=== PATIENT | male | born 1965 | race Caucasian/White ===

== ENCOUNTER 2018-06-16 11:30 | Emergency (ER) | payer MEDICARE, MEDICAID, SELFPAY ==
[2018-06-16] VITALS (10 sets, daily range): BP systolic 150; BP diastolic 97; PULSE 74–91; RESP 7–23; TEMP 36.6; O2SAT 90–97
--- NOTE | 2018-06-16 12:33 | DI.RAD_ITS ---
SYMPTOMS/DIAGNOSIS: COUGH CHEST X-RAY, FRONTAL AND LATERAL VIEWS: No priors for comparison. The heart size is within normal limits. Pulmonary vasculature is grossly unremarkable. The lungs show no evidence of congestive heart failure or pneumonia. No effusions or pneumothoraces are identified. Incidental note is made of an azygos lobe, which is a normal variant. Chronic changes are seen in the spine. There are surgical clips seen in the left upper quadrant. There are a plate and screws seen in the left humerus. IMPRESSION: No acute pulmonary process.
[2018-06-16 12:49] LABS: BE (Venous) 1.4 mmol/L (-3-3); HCO3 (Venous) 26 mmol/L (22-28); O2 Sat (Venous) 81 % (70-80); TCO2 (Venous) 24 mmol/L (22-29); pCO2 (Venous) 44 mm/Hg (34-47); pH (Venous) 7.39 (7.32-7.43); pO2 (Venous) 44 mm/Hg (28-44)
[2018-06-16] MEDS: Ketorolac 30 MG/ML VIAL IVP (12:49)
[2018-06-16] MEDS: methylPREDNISolone SUCC 125 MG VIAL IVP (12:49)
[2018-06-16] MEDS: Albuterol/Ipratropium 3 ML UPD VIAL UPD (12:50)
[2018-06-16 12:54] LABS: Abs Immature Grans 0.11 k/cumm (0.0-0.09); Absolute Basophil Count 0.05 k/cumm (0.0-0.2); Absolute Eosinophil Count 0.13 k/cumm (0.0-0.7); Absolute Lymphocyte Count 3.04 k/cumm (1.2-3.4); Absolute Monocyte Count 1.34 k/cumm (0.11-0.7); Absolute Neutrophil Count 6.71 k/cumm (1.2-6.7); Basophils % 0.4; Eosinophils % 1.1; HCT 41.7 % (40.0-50.0); HGB 14.2 g/dL (13.5-17.5); Lymphocytes % 26.7; Mean Corp. HGB Concentration 34.1 g/dL (32.0-36.0); Mean Corpuscular Hemoglobin 31.5 pg (27.0-33.0); Mean Corpuscular Volume 92.5 fL (80-95); Mean Platelet Volume 9.5 fL (8.0-11.0); Monocytes % 11.8; Platelet Count 466 x1000/uL (130-400); RBC 4.51 m/cumm (4.50-6.00); RBC Distribution Width 12.7 % (11.8-14.1); White Blood Cell Count 11.37 k/cumm (4.4-10.8)
--- NOTE | 2018-06-16 12:55 | W.ED.GENAD ---
Discharge Plan Disposition Patient Disposition: HOME Condition: Good Discharge Details Chief Complaint: RespSymp Clinical Impression: Bronchitis Primary Care Provider: TOSHIA SULLIVAN ED Provider: Raul Negron Home Meds and New Rx's Prescriptions: New lidocaine [Lidoderm] 1 PATCH patch 1 patch Topical Q24H Qty: 4 RF: 0 ibuprofen [Motrin IB] 200 MG tablet 600 mg PO Q6H 5 Days Qty: 60 RF: 0 prednisone 50 MG tablet 50 mg PO DAILY Qty: 5 RF: 0 azithromycin 250 mg tablet See Label Instructions .ROUTE .COMPLEX Qty: 6 RF: 0 albuterol sulfate 90 mcg/actuation HFA aerosol inhaler 2 puff IH Q6H PRN (Reason: shortness of breath or wheezing) Qty: 6.7 RF: 0 guaifenesin [Mucinex] 600 mg tablet extended release 12hr 600 mg PO Q12H Qty: 14 RF: 0 No Action oxycodone-acetaminophen [Percocet] 1 EACH tablet 1 ea PO 5X/DAY RF: 0 pravastatin 40 MG tablet 40 mg PO DAILY RF: 0 baclofen 20 MG tablet 1 tab PO DAILY RF: 0 clindamycin phosphate 60 GM gel 1 tab PO BID RF: 0 amlodipine 10 MG tablet 1 tab PO DAILY RF: 0 misoprostol [Cytotec] 200 MCG tablet 1 cap PO BID RF: 0 dextroamphetamine-amphetamine 30 MG capsule,extended release 24hr 30 mg PO DAILY RF: 0 losartan 100 MG tablet 1 tab PO DAILY RF: 0 calcitonin (salmon) [Miacalcin] 200 UNITS/ML solution 1 spray Intranasal DAILY RF: 0 metformin 500 MG tablet extended release 24hr 1 tab PO DAILY RF: 0 golimumab [Simponi] 50 MG/0.5 ML syringe 0.5 ml PO RF: 0 Discharge Instructions Instructions: Acute Bronchitis (ED) Additional Instructions: Please take medications as directed. If you notice any worsening of your symptoms, or any new symptoms such as vomiting, diarrhea, fever, chills, shortness of breath, chest pain, numbness, weakness, or fainting , please return immediately to the emergency department for reevaluation. Please follow up with your primary care provider as soon as possible for reassessment and reevaluation. As always, it was a pleasure participating in your medical care today. Referrals: TOSHIA SULLIVAN [Primary Care Provider] - Medical Decision Making This is a 52-year-old male with a past medical history of ankylosing spondylitis, diabetes and hypertension who presents with cough and shortness of breath for the last 2 weeks. He has some associated chest pain, which seems to be made worse with the cough. He denies any significant cardiac disease or history of respiratory disease. The patient does admit to some productive sputum with her cough. Vital signs are normal, the patient demonstrates no signs of hypoxemia, tachypnea, or tachycardia. The patient is low risk on PERC and Wells. Signs and symptoms are clinically inconsistent with PE. He denies any red flags for a PE. Patient does have some cardiac risk factors and we will perform a troponin EKG, however I feel symptoms are most likely secondary to a bronchitis or mild pneumonia. With normal vital signs, and atypical history and presentation for ACS, and low risk for PE/DVT, I feel that he can be safely discharged home if his workup has returned negative. EKG 12: 16 Rate 70, intervals normal, sinus rhythm, no ST elevations or depressions, no T wave inversions, no significant Q waves, normal EKG EKG 17: 23 Rate 101, intervals normal, EKG interpretation is atrial flutter, however this is a missed read and this is a normal sinus rhythm with no ST elevations or depressions, no significant Q waves, no significant T wave inversions. FINDINGS: Lungs: Normal variant azygos lobe . No focal consolidation Pleural space: Unremarkable. No pleural effusion. No pneumothorax. Heart/Mediastinum: Tortuous aorta No cardiomegaly. Upper abdomen: Surgical clips in the left upper quadrant Bones/joints: Internal fixation device in the proximal left femur IMPRESSION: No focal consolidation 5:36 PM Patient's chest x-ray has returned normal. No evidence of focal pneumonia. Patient's oxygen saturations remain excellent, no signs of hypoxemia. We did get the patient up and ambulate him around the department, his heart rate maxed out at 98, oxygen saturations maintained above 94%, and he showed no signs of respiratory distress. Serial troponins and EKGs are benign. Patient did have improvement with his breathing treatments. I feel that he does have a bit of reactive airway component, with most likely an acute on chronic bronchitis. We will prescribe an antibiotic, expectorants, albuterol, and steroids for home use. I do long discussion with the patient regarding the importance of close follow-up, as well as red flags which to return the patient understands. I feel the patient's clinical symptoms are consistent with a bronchitis picture, and clinically inconsistent with an acute cardiac etiology with the notable ausculatory respiratory component, the improvement with breathing treatments, and benign EKG and troponin. I have extensively reviewed the treatment plan and discharge instructions with the patient. I have addressed all patient concerns at this time. The patient was made aware of what symptoms to monitor for that would warrant a return to the emergency department. Discussed the plan with the patient, they demonstrate verbal understanding and agreement with our assessment and plan at this time. HPI General Date/Time Provider Initiated Documentation: 06/16/18 12:20. 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 The patient states that for the last 2 weeks he has had a cough with productive yellow sputum, he has had no associated chest pain, worse with cough, nonexertional, which she describes as a sharp sensation when he coughs but also with associated weight-like sensation. He does have associated shortness of breath in general. He denies any hemoptysis. Denies PE risk factors such as recent long car rides, immobilization, recent surgery, prior history of DVT or PE, family history of PE or DVT, morbid obesity, exogenous estrogen and smoking, hemoptysis, history of cancer. Patient denies any cardiac history or history of COPD. His family history is positive for cardiac disease though. Patient denies any other associated complaints at this time. He does not take any breathing treatments at home. He denies any arm neck or shoulder pain. He denies any numbness, tingling, or weakness. He has no additional complaints at this time. He denies any IV or illicit drug use. Related Data Home Medications Medication Instructions Recorded Confirmed amlodipine 1 tab PO DAILY 01/31/16 02/10/16 baclofen 1 tab PO DAILY 01/31/16 02/10/16 calcitonin (salmon) [Miacalcin] 1 spray INTRANASAL DAILY 01/31/16 02/10/16 clindamycin phosphate 1 tab PO BID 01/31/16 02/10/16 dextroamphetamine-amphetamine 30 mg PO DAILY 01/31/16 02/10/16 golimumab [Simponi] 0.5 ml PO 01/31/16 losartan 1 tab PO DAILY 01/31/16 02/10/16 metformin 1 tab PO DAILY 01/31/16 02/10/16 misoprostol [Cytotec] 1 cap PO BID 01/31/16 02/10/16 oxycodone-acetaminophen [Percocet] 1 ea PO 5X/DAY 01/31/16 02/09/16 pravastatin 40 mg PO DAILY 01/31/16 02/09/16 albuterol sulfate 2 puff IH Q6H PRN #6.7 gm 06/16/18 azithromycin See Label Instructions .ROUTE 06/16/18 .COMPLEX #6 tab guaifenesin [Mucinex] 600 mg PO Q12H #14 tab 06/16/18 ibuprofen [Motrin Ib] 600 mg PO Q6H 5 Days #60 tab 06/16/18 lidocaine [Lidoderm] 1 patch TOPICAL Q24H #4 patch 06/16/18 prednisone 50 mg PO DAILY #5 tab 06/16/18 Previous Rx's Medication Instructions Recorded albuterol sulfate 2 puff IH Q6H PRN #6.7 gm 06/16/18 azithromycin See Label Instructions .ROUTE 06/16/18 .COMPLEX #6 tab guaifenesin [Mucinex] 600 mg PO Q12H #14 tab 06/16/18 ibuprofen [Motrin Ib] 600 mg PO Q6H 5 Days #60 tab 06/16/18 lidocaine [Lidoderm] 1 patch TOPICAL Q24H #4 patch 06/16/18 prednisone 50 mg PO DAILY #5 tab 06/16/18 Allergies Allergy/AdvReac Type Severity Reaction Status Date / Time No Known Allergies Allergy Unverified 06/16/18 12:21 General Stated Complaint: RespSymp SHINE: 3 Review of Systems Review of Systems All systems reviewed & are unremarkable except as noted in HPI and below PFSH Social History Smoking/Tobacco Use Status: Never Exam Narrative Exam Narrative: 1.Const: Well-nourished, Well-developed, appearing stated age 2.Eyes: PERRL, no conjunctival injection, and symmetrical lids. 3.ENT: Atraumatic external nose and ears. Moist MM. Neck: Symmetric, trachea midline, No thyromegaly. 4.CVS: +S1/S2, No murmurs or gallops. Peripheral pulses 2+ and equal in all extremities. Brisk capillary refill in all extremities. +2 radial pulses bilaterally. 5.RESP: Normal respirations, mild wheezes, minimal crackles in the bases. No signs of respiratory distress. No tachypnea. Equal breath sounds throughout otherwise. 6.GI: Soft, Nontender/Nondistended, No hepatosplenomegaly. No guarding or rebound. 7.MSK: Normocephalic/Atraumatic, Extremities w/o deformity or ttp No cyanosis or clubbing, Normal movement of all extremities. Negative Homans sign, no calf tenderness. No pitting edema. 8.Skin: Warm, Dry. No rashes or lesions. 9.Neuro: parts professional II-XII grossly intact. Sensation grossly intact, no focal neurologic deficits. 10.Psych: (AAO) x3. Appropriate mood and affect Course Vital Signs Temperature 36.6 C 06/16/18 12:18 Pulse 88 06/16/18 12:18 Respiratory Rate 15 06/16/18 12:18 Blood Pressure 150/97 H 06/16/18 12:18 Pulse Oximetry 97 06/16/18 12:18 Temperature 36.6 C 06/16/18 12:18 Temperature Source Temporal Artery Scan 06/16/18 12:18 Pulse 88 06/16/18 12:50 Respiratory Rate 15 06/16/18 12:50 Respiratory Effort Incrsd Work of Breathing 06/16/18 12:22 Blood Pressure 150/97 H 06/16/18 12:18 Blood Pressure Position Sitting 06/16/18 12:18 Pulse Oximetry 97 06/16/18 12:50 Oxygen Delivery Method Room Air 06/16/18 12:18 Oxygen Flow Rate 0 06/16/18 12:18 Pain Level 10 06/16/18 12:49 Lab/Test Results Lab/Test Results: Laboratory Tests Range/Units 06/16/18 06/16/18 12:40 12:40 WBC (4.4-10.8) k/cumm 11.37 H RBC (4.50-6.00) m/cumm 4.51 Hgb (13.5-17.5) g/dL 14.2 Hct (40.0-50.0) % 41.7 MCV (80-95) fL 92.5 MCH (27.0-33.0) pg 31.5 MCHC (32.0-36.0) g/dL 34.1 RDW (11.8-14.1) % 12.7 Plt Count (130-400) x1000/uL 466 H MPV (8.0-11.0) fL 9.5 Immature Gran % 1.0 Neutrophils % 59.0 Lymphocytes % 26.7 Monocytes % 11.8 Eosinophils % 1.1 Basophils % 0.4 Absolute Neutrophils (1.2-6.7) k/cumm 6.71 H Absolute Lymphocytes (1.2-3.4) k/cumm 3.04 Absolute Monocytes (0.11-0.7) k/cumm 1.34 H Absolute Eosinophils (0.0-0.7) k/cumm 0.13 Absolute Basophils (0.0-0.2) k/cumm 0.05 VBG pH (7.32-7.43) 7.39 VBG pCO2 (34-47) mm/Hg 44 VBG pO2 (28-44) mm/Hg 44 VBG HCO3 (22-28) mmol/L 26 VBG Total CO2 (22-29) mmol/L 24 VBG O2 Saturation (70-80) % 81 H VBG Base Excess (-3-3) mmol/L 1.4
[2018-06-16 13:05] LABS: ALT 70 U/L (12-78); AST 28 U/L (15-37); Alkaline Phosphatase 130 U/L (46-116); Anion Gap 8.3 mmol/L (3-11); BUN 11 mg/dL (7-18); Bilirubin, Total 0.3 mg/dL (0.2-1.0); CO2 27.7 mmol/L (21.0-32.0); Calcium 8.6 mg/dL (8.5-10.1); Chloride 100 mmol/L (98-107); Glucose 248 mg/dL (70-100); Potassium 4.2 mmol/L (3.5-5.1); Sodium 136 mmol/L (136-145); Total Protein 6.9 g/dL (6.4-8.2); Troponin I < 0.02 ng/mL (0.00-0.06)
--- NOTE | 2018-06-16 13:57 | DI.VRAD_ITS ---
EXAM: XR Chest, 2 Views EXAM DATE/TIME: 06/16/2018 1:17 PM CLINICAL HISTORY: 52 years old, male; Signs and symptoms; Cough TECHNIQUE: XR of the chest, 2 views. COMPARISON: No relevant prior studies available. FINDINGS: Lungs: Normal variant azygos lobe . No focal consolidation Pleural space: Unremarkable. No pleural effusion. No pneumothorax. Heart/Mediastinum: Tortuous aorta No cardiomegaly. Upper abdomen: Surgical clips in the left upper quadrant Bones/joints: Internal fixation device in the proximal left femur IMPRESSION: No focal consolidation Dictated and Authenticated by: Edgar Morgan MD. Ordering:SHAQ BONILLA MD
[2018-06-16 15:57] LABS: Troponin I < 0.02 ng/mL (0.00-0.06)
--- NOTE | 2018-06-17 07:03 | PDOC.ERCMPRO ---
Care Management Progress Note 06/17-Dr. Negron requested assistance with a local PCP for Ervin. No ED f/u is needed. 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 Previous provider is Dr. Juan Copeland in [facility]. Referral faxed to [facility] reese am.
--- NOTE | 2018-06-17 07:04 | CMPROGNOTE_ITS ---
Care Management Progress Note 06/17-Dr. Negron requested assistance with a local PCP for Ervin. No ED f/u is needed. 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 Previous provider is Dr. Juan Copeland in [facility]. Referral faxed to [facility] reese am.
== END 2018-06-16 17:49 | disposition home or self-care (01) ==
PROVIDERS: Emergency Provider Student in an Organized Health Care Education/Training Program; PCP Family Medicine
DX: J20.9 Acute bronchitis, unspecified (principal); I48.92 Unspecified atrial flutter
CPT/HCPCS: 36415; 80053; 82805; 93005; 94640; 96374; 96375; 99285; 71046; 84484; 85025; 93010; J1885; J2930; J7620

== ENCOUNTER 2018-07-03 21:38 | Emergency (ER) | payer MEDICARE, MEDICAID, SELFPAY ==
--- NOTE | 2018-07-03 00:25 | DI.CT_ITS ---
SYMPTOM/DIAGNOSIS: CHEST AND UPPER BACK PAIN WITH COUGH CT ANGIOGRAPHY CHEST: 07/03/18 CT angiography of the chest was performed with a bolus infusion of 100 cc IsoVue 370. Images obtained through the upper abdomen show hepatic steatosis, prior splenectomy, and nonobstructing left nephrolithiasis with probable left renal cortical scarring. The visualized portions of the pancreas are unremarkable. No evidence of pulmonary embolic disease or thoracic aorta, dissection or aneurysm. No mediastinal or hilar adenopathy. Linear areas of presumed scarring are noted in the lung bases bilaterally. No acute consolidation. No pleural effusion or pleural based mass. CONCLUSION: No evidence of pulmonary embolic disease.
[2018-07-03 22:01] VITALS: BP 159/54; PULSE 105; RESP 20; TEMP 36.6; O2SAT 96
--- NOTE | 2018-07-03 22:30 | W.ED.GENAD ---
Discharge Plan Disposition Patient Disposition: HOME Discharge Details Chief Complaint: RespSymp Clinical Impression: Hyperglycemia, Hypomagnesemia, Bronchitis Reason For Visit: coughing blood Primary Care Provider: TOSHIA SULLIVAN ED Provider: Albaro Granger Home Meds and New Rx's Prescriptions: New levofloxacin 750 mg tablet 750 mg PO DAILY Qty: 4 RF: 0 Continue pravastatin 40 MG tablet 40 mg PO DAILY RF: 0 baclofen 20 MG tablet 1 tab PO DAILY RF: 0 amlodipine 10 MG tablet 1 tab PO DAILY RF: 0 misoprostol [Cytotec] 200 MCG tablet 1 cap PO BID RF: 0 dextroamphetamine-amphetamine 30 MG capsule,extended release 24hr 30 mg PO DAILY RF: 0 losartan 100 MG tablet 1 tab PO DAILY RF: 0 calcitonin (salmon) [Miacalcin] 200 UNITS/ML solution 1 spray Intranasal DAILY RF: 0 metformin 500 MG tablet extended release 24hr 1 tab PO DAILY RF: 0 golimumab [Simponi] 50 MG/0.5 ML syringe 0.5 ml PO RF: 0 albuterol sulfate 90 mcg/actuation HFA aerosol inhaler 2 puff IH Q6H PRN (Reason: shortness of breath or wheezing) Qty: 6.7 RF: 0 lidocaine [Lidoderm] 1 PATCH patch 1 patch Topical Q24H Qty: 4 RF: 0 Discontinued guaifenesin [Mucinex] 600 mg tablet extended release 12hr 600 mg PO Q12H Qty: 14 RF: 0 Discharge Instructions Instructions: Acute Bronchitis (ED), Hypomagnesemia (ED), Diabetic Hyperglycemia (ED), Wheezing (ED) Additional Instructions: Please take your medication as prescribed. Use your albuterol inhaler, 2 puffs every 4 hours as needed for shortness of breath or wheeze Please contact your primary care physician to arrange follow-up. Return to the ER for any worsening or new concerning symptoms. Discharge Data Discharge Date/Time-TO BE ENTERED AT DEPARTURE: 07/04/18 02:12 Medical Decision Making <MERRITT Marie - Last Filed: 07/05/18 09:24> Patient is a 52-year-old male presenting today with chief complaint of reevaluation of cough and discomfort with coughing. Patient was here 2 weeks ago which time he was diagnosed with bronchitis. Patient was begun on 5-day burst of prednisone, given medication for Lidoderm patch and placed on azithromycin, albuterol inhaler and Mucinex. Reports the albuterol has been helping with symptomatic management, particularly at night. Has not been able to fill the Lidoderm patches secondary to financial restrictions. Finish the course of azithromycin and prednisone despite this evening symptoms have persisted. This is the fourth week of symptoms. States that cough is primarily dry but at night if it can be productive. States that he has had blood-tinged sputum, again particularly at night. Is endorsing shortness of breath, particularly with coughing fits. States the pain can be 10 out of 10 particularly in the back between his shoulder blades in the superiormost aspect of his back with coughing. Patient is 2+ distal pulses. Calves are soft and nontender, no pedal edema. Lungs are clear on exam. Patient was forcefully exhaling initially causing audible wheeze that was not actually emanating from the lungs and seemed to be self made. Vital signs are significant for pulse of 105. Patient's oxygen is 96% on room air. He is slightly hypertensive at 159/54. Patient has history of diabetes, hypertension, nephrolithiasis, chronic back pain from ankylosing spondylitis. Patient has multiple medications listed but, secondary to not having these filled, is only on metformin at this time. When patient was seen here 2 weeks ago, he did have a 4-hour cardiac evaluation with serial troponins. At that time, PE was not suspected. However, the patient is now endorsing some hemoptysis and increased discomfort, feel that evaluation for PE is appropriate. No calf tenderness, no lower extremity edema. She does not appear short of breath at this time. Is not hypoxic. Speaking in complete sentences and does appear comfortable. Will obtain d-dimer at this time. No recent travel. Will repeat laboratory evaluation as well as chest X CXR reviewed by radiologist, no acute abnormality noted. No pneumothorax, no sizable pleural effusion. No cardiomegaly. Post surgical changes noted. Lungs clear. EKG reviewed by Dr. Granger, NSR with no acute ischemic changes noted. Laboratory evaluation without significant abnormality. D-dimer is <500. Leukocytosis is slightly improved from previous. Troponin remains <0.02. Platelets elevated at 438, patient is typically elevated. Glucose 323, patient has been elevated historically and states that this is not unusual for him. While labs and cxr are reassuring, I continue to be concerned with the pain he has been experiencing. While there is no indication PE at this time, will obtain CT to evaluate for possible dissection. Discussed these concerns with the patient who is in agreement moving forward with further imaging At the end of my shift, with CT pending, care was transitioned to Dr. Granger who will follow up on findings of CT. CT is negative, patient is requesting refill of his albuterol inhaler as he finds this helpful particularly at night. I have placed the patient on care transition manager list to help establish a local primary care physician. <Albaro Granger MD - Last Filed: 07/04/18 01:59> Patient received in signout from MERRITT Segura. Plan to follow-up on CT imaging and reassess patient for disposition. ECG reviewed and interpreted by me: Normal sinus rhythm 94 bpm, normal axis, nondiagnostic. Labs reviewed: mild hypomagnesemia noted. Will give magnesium 1 g IV. mild leukocytosis noted hyperglycemia noted CTA of the chest interpreted by radiology: Pulmonary arteries normal with no pulmonary embolism. Aorta normal. No aortic dissection. No aortic aneurysm. No pneumonia noted. Liver with heterogeneous attenuation probably from hepatic steatosis with scattered areas of fatty sparing. Splenectomy noted. Nonobstructing left nephrolith with left kidney renal scarring. No acute findings. Patient reassessed and has remained stable here in ED. I reviewed results with the patient. Patient immunosuppressed post splenectomy. Plan to treat with levaquin for possible bacterial bronchitis refractory to macrolide. Initial dose provided here. I discussed need to take medications as prescribed. Will give new albuterol inhaler. Plan for patient to follow-up with PCP. Patient needs a PCP. I will ask that care management help arrange close (<1 week) outpatient follow-up with a primary care physician. Disposition decision was made weighing the risks and benefits of hospitalization versus outpatient treatment, the risk for further decompensation, and the patient's wishes. The patient was stable and requested discharge. Prior to discharge, my usual and customary return precautions were reviewed with the patient - this included follow-up instructions and reason to return to the emergency department if condition worsens, does not improve as expected, or other new concerns arise. HPI <MERRITT Marie - Last Filed: 07/05/18 09:24> General Mode of arrival: ambulatory. Date/Time Provider Initiated Documentation: 07/03/18 22:03. Limitations to Documentation: no limitations. Information obtained by: patient. History of Present Illness 52 year old M presents to the emergency department with the chief complaint of cough, described as severe, with intensity rated at 10. Quality is described as aching, and is localized to the chest and back. Patient denies neck and abdomen. Patient started experiencing this week(s) (4) and it has been constant. No relieving factors improve symptom(s), Movement worsens symptoms and Other factors that worsen symptoms (cough) . Patient notes chest pain, cough and shortness of breath; denies fever/chills, headaches, loss of appetite, nausea/vomiting and rash. Patient did receive the following treatments prior to arrival, other (previously on Azithromycin, albuterol, mucinex and prednisone) Related Data Home Medications Medication Instructions Recorded Confirmed amlodipine 1 tab PO DAILY 01/31/16 02/10/16 baclofen 1 tab PO DAILY 01/31/16 02/10/16 calcitonin (salmon) [Miacalcin] 1 spray INTRANASAL DAILY 01/31/16 02/10/16 dextroamphetamine-amphetamine 30 mg PO DAILY 01/31/16 02/10/16 golimumab [Simponi] 0.5 ml PO 01/31/16 losartan 1 tab PO DAILY 01/31/16 02/10/16 metformin 1 tab PO DAILY 01/31/16 02/10/16 misoprostol [Cytotec] 1 cap PO BID 01/31/16 02/10/16 pravastatin 40 mg PO DAILY 01/31/16 02/09/16 lidocaine [Lidoderm] 1 patch TOPICAL Q24H #4 patch 06/16/18 albuterol sulfate 2 puff IH Q6H PRN #6.7 gm 07/04/18 levofloxacin 750 mg PO DAILY #4 tab 07/04/18 Previous Rx's Medication Instructions Recorded lidocaine [Lidoderm] 1 patch TOPICAL Q24H #4 patch 06/16/18 albuterol sulfate 2 puff IH Q6H PRN #6.7 gm 07/04/18 levofloxacin 750 mg PO DAILY #4 tab 07/04/18 Allergies Allergy/AdvReac Type Severity Reaction Status Date / Time No Known Allergies Allergy Unverified 07/03/18 22:56 General Stated Complaint: RespSymp SHINE: 3 Review of Systems <MERRITT Marie - Last Filed: 07/05/18 09:24> Constitutional Reports as per HPI, Denies chills, Reports fatigue, Denies fever(s), Denies headache(s) and Denies poor appetite Eyes Denies irritation ENT Reports as per HPI, Denies dysphagia, Reports dry mouth, Denies otalgia, Denies headache(s), Reports nasal congestion, Denies sinus pain, Denies sinus pressure and Denies sore throat Cardiovascular Reports as per HPI, Reports chest pain, Denies palpitations, Reports dyspnea and Reports dyspnea on exertion Respiratory Reports as per HPI, Reports cough, Reports dyspnea and Reports dyspnea on exertion Gastrointestinal Reports as per HPI, Denies abdominal pain, Reports change in bowel habits (endorses several weeks of soft stool. ), Denies dysphagia, Denies nausea and Denies vomiting Genitourinary Reports system reviewed and no additional complaints, except as docu (denies any change in urinary habits) Musculoskeletal Reports as per HPI and Reports back pain (persistent upper back pain) Integumentary/Breasts Reports as per HPI and Denies rash Neurologic Reports as per HPI and Denies headache(s) Endocrine Reports fatigue and Denies palpitations Exam <MERRITT Marie - Last Filed: 07/05/18 09:24> Const General: cooperative, healthy appearing, comfortable, no acute distress, well developed and well groomed Nutritional Appearance: well nourished and overweight Orientation: alert and awake [facility] Head: normal to inspection and normocephalic Ears: hearing grossly normal bilaterally General nose exam: external nose normal Mouth: oral mucosae normal, lip normal, oropharynx normal and mucous membranes dry (patient appears dry on exam) Teeth and gingiva: dentition normal Throat: posterior oropharynx normal, tonsils normal and uvula midline Eyes General: appearance normal, both eyes and all related structures Neck Neck: normal visual inspection, full ROM, no lymphadenopathy and no meningeal signs Resp Effort & Inspection: normal respiratory effort, able to speak in complete sentences and no respiratory distress Auscultation: clear to auscultation bilaterally, no rales, no rhonchi and no wheezes Cardio Rate: regular rate Rhythm: regular rhythm Heart Sounds: S1 normal and S2 normal GI Inspection: normal to inspection Palpation: soft, no hepatosplenomegaly, no guarding and nontender Back/Spine/Pelvis Back: no CVA tenderness Thoracic/Lumbar Spine: thoracic and lumbar spine normal to inspection Skin General skin exam: no rashes or lesions noted Trauma: no lacerations or abrasions Neuro General: alert and awake Cognition: normal cognition Speech: speech normal Gait: normal gait Extrem General: normal to inspection, no pedal edema, no calf tenderness and normal gait Psych Appearance: grossly normal and well kempt Mental Status: mental status grossly normal Speech and Movement: speech and movement normal Course <MERRITT Marie - Last Filed: 07/05/18 09:24> Vital Signs Temperature 36.6 C 07/03/18 22:01 Pulse 105 H 07/03/18 22:01 Respiratory Rate 20 07/03/18 22:01 Blood Pressure 159/54 H 07/03/18 22:01 Pulse Oximetry 96 07/03/18 22:01 Temperature 36.6 C 07/03/18 22:01 Temperature Source Temporal Artery Scan 07/03/18 22:01 Pulse 105 H 07/03/18 22:01 Respiratory Rate 20 07/03/18 22:01 Blood Pressure 159/54 H 07/03/18 22:01 Pulse Oximetry 96 07/03/18 22:01 Oxygen Delivery Method Room Air 07/03/18 22:01 Oxygen Flow Rate 0 07/03/18 22:01 Pain Level 10 07/03/18 22:01 Sign Out <MERRITT Marie - Last Filed: 07/05/18 09:24> Sign Out Data: Sign Out Comment: Patient being evaluated for persistent cough and upper back pain x [address] for evaluation of dissection pending. Care transitioned to Dr. Granger. Last updated by Joy Lopez PA at 07/04/18 00:21 Post-Handoff Eval:
[2018-07-03 22:35] VITALS: PULSE 96; RESP 15; O2SAT 98
[2018-07-03 22:40] VITALS: PULSE 99; RESP 23; O2SAT 97
[2018-07-03 22:46] VITALS: BP 121/61; PULSE 101; PULSE 104; RESP 21
[2018-07-03 22:46] LABS: Abs Immature Grans 0.05 k/cumm (0.0-0.09); Absolute Eosinophil Count 0.16 k/cumm (0.0-0.7); Absolute Lymphocyte Count 4.37 k/cumm (1.2-3.4); Basophils % 0.5; Eosinophils % 1.4; HCT 40.3 % (40.0-50.0); HGB 13.8 g/dL (13.5-17.5); Immature Grans % 0.5; Lymphocytes % 39.4; Mean Corp. HGB Concentration 34.2 g/dL (32.0-36.0); Mean Corpuscular Hemoglobin 31.4 pg (27.0-33.0); Mean Corpuscular Volume 91.6 fL (80-95); Mean Platelet Volume 9.5 fL (8.0-11.0); Monocytes % 10.8; Neutrophils % 47.4; Platelet Count 438 x1000/uL (130-400); RBC Distribution Width 12.9 % (11.8-14.1)
[2018-07-03 22:47] LABS: Absolute Basophil Count 0.06 k/cumm (0.0-0.2); Absolute Neutrophil Count 5.26 k/cumm (1.2-6.7)
[2018-07-03 22:50] VITALS: PULSE 99; RESP 24; O2SAT 94
[2018-07-03] MEDS: Lidocaine 5% Patch 1 PATCH TP (22:53)
[2018-07-03] MEDS: Ketorolac 15 MG/ML VIAL IVP (22:53)
[2018-07-03] MEDS: Normal Saline 1,000 ML 125 ML IV (22:54)
[2018-07-03 23:06] LABS: ALT 65 U/L (12-78); AST 22 U/L (15-37); Albumin 3.1 g/dL (3.4-5.0); Alkaline Phosphatase 143 U/L (46-116); Anion Gap 11.2 mmol/L (3-11); BUN 13 mg/dL (7-18); Bilirubin, Total 0.3 mg/dL (0.2-1.0); CO2 26.8 mmol/L (21.0-32.0); CREATININE 1.21 mg/dL (0.70-1.30); Chloride 95 mmol/L (98-107); Glucose 323 mg/dL (70-100); Magnesium 1.6 mg/dL (1.8-2.4); NT-proBNP 13 pg/mL; Potassium 4.1 mmol/L (3.5-5.1); Sodium 133 mmol/L (136-145); Total Protein 7.1 g/dL (6.4-8.2)
[2018-07-03 23:09] LABS: Troponin I < 0.02 ng/mL (0.00-0.06)
--- NOTE | 2018-07-03 23:20 | DI.RAD_ITS ---
SYMPTOM/DIAGNOSIS: COUGH X 4 WEEKS PA AND LATERAL CHEST: 07/03/18 Note is made of vascular clips in the left upper quadrant. Heart is at the upper limits of normal in size. Bilateral areas of linear pulmonary scarring are noted. No pleural effusion seen. CONCLUSION: No evidence of acute disease.
[2018-07-03 23:23] LABS: D-Dimer 395 ng/mlFEU (<500)
--- NOTE | 2018-07-03 23:23 | ED.GENADUL_ITS ---
Discharge Plan Disposition Patient Disposition: HOME Discharge Details Chief Complaint: RespSymp Clinical Impression: Hyperglycemia, Hypomagnesemia, Bronchitis Reason For Visit: coughing blood Primary Care Provider: TOSHIA SULLIVAN ED Provider: Albaro Granger Home Meds and New Rx's Prescriptions: New levofloxacin 750 mg tablet 750 mg PO DAILY Qty: 4 RF: 0 Continue pravastatin 40 MG tablet 40 mg PO DAILY RF: 0 baclofen 20 MG tablet 1 tab PO DAILY RF: 0 amlodipine 10 MG tablet 1 tab PO DAILY RF: 0 misoprostol [Cytotec] 200 MCG tablet 1 cap PO BID RF: 0 dextroamphetamine-amphetamine 30 MG capsule,extended release 24hr 30 mg PO DAILY RF: 0 losartan 100 MG tablet 1 tab PO DAILY RF: 0 calcitonin (salmon) [Miacalcin] 200 UNITS/ML solution 1 spray Intranasal DAILY RF: 0 metformin 500 MG tablet extended release 24hr 1 tab PO DAILY RF: 0 golimumab [Simponi] 50 MG/0.5 ML syringe 0.5 ml PO RF: 0 albuterol sulfate 90 mcg/actuation HFA aerosol inhaler 2 puff IH Q6H PRN (Reason: shortness of breath or wheezing) Qty: 6.7 RF: 0 lidocaine [Lidoderm] 1 PATCH patch 1 patch Topical Q24H Qty: 4 RF: 0 Discontinued guaifenesin [Mucinex] 600 mg tablet extended release 12hr 600 mg PO Q12H Qty: 14 RF: 0 Discharge Instructions Instructions: Acute Bronchitis (ED), Hypomagnesemia (ED), Diabetic Hyperglycemia (ED), Wheezing (ED) Additional Instructions: Please take your medication as prescribed. Use your albuterol inhaler, 2 puffs every 4 hours as needed for shortness of breath or wheeze Please contact your primary care physician to arrange follow-up. Return to the ER for any worsening or new concerning symptoms. Discharge Data Discharge Date/Time-TO BE ENTERED AT DEPARTURE: 07/04/18 02:12 Medical Decision Making <MERRITT Marie - Last Filed: 07/05/18 09:24> Patient is a 52-year-old male presenting today with chief complaint of reevaluation of cough and discomfort with coughing. Patient was here 2 weeks ago which time he was diagnosed with bronchitis. Patient was begun on 5-day burst of prednisone, given medication for Lidoderm patch and placed on azithromycin, albuterol inhaler and Mucinex. Reports the albuterol has been helping with symptomatic management, particularly at night. Has not been able to fill the Lidoderm patches secondary to financial restrictions. Finish the course of azithromycin and prednisone despite this evening symptoms have persisted. This is the fourth week of symptoms. States that cough is primarily dry but at night if it can be productive. States that he has had blood-tinged sputum, again particularly at night. Is endorsing shortness of breath, particularly with coughing fits. States the pain can be 10 out of 10 particularly in the back between his shoulder blades in the superiormost aspect of his back with coughing. Patient is 2+ distal pulses. Calves are soft and nontender, no pedal edema. Lungs are clear on exam. Patient was forcefully exhaling initially causing audible wheeze that was not actually emanating from the lungs and seemed to be self made. Vital signs are significant for pulse of 105. Patient's oxygen is 96% on room air. He is slightly hypertensive at 159/ 54. Patient has history of diabetes, hypertension, nephrolithiasis, chronic back pain from ankylosing spondylitis. Patient has multiple medications listed but, secondary to not having these filled, is only on metformin at this time. When patient was seen here 2 weeks ago, he did have a 4-hour cardiac evaluation with serial troponins. At that time, PE was not suspected. However, the patient is now endorsing some hemoptysis and increased discomfort, feel that evaluation for PE is appropriate. No calf tenderness, no lower extremity edema. She does not appear short of breath at this time. Is not hypoxic. Speaking in complete sentences and does appear comfortable. Will obtain d- dimer at this time. No recent travel. Will repeat laboratory evaluation as well as chest X CXR reviewed by radiologist, no acute abnormality noted. No pneumothorax, no sizable pleural effusion. No cardiomegaly. Post surgical changes noted. Lungs clear. EKG reviewed by Dr. Granger, NSR with no acute ischemic changes noted. Laboratory evaluation without significant abnormality. D-dimer is <500. Leukocytosis is slightly improved from previous. Troponin remains <0.02. Platelets elevated at 438, patient is typically elevated. Glucose 323, patient has been elevated historically and states that this is not unusual for him. While labs and cxr are reassuring, I continue to be concerned with the pain he has been experiencing. While there is no indication PE at this time, will obtain CT to evaluate for possible dissection. Discussed these concerns with the patient who is in agreement moving forward with further imaging At the end of my shift, with CT pending, care was transitioned to Dr. Granger who will follow up on findings of CT. CT is negative, patient is requesting refill of his albuterol inhaler as he finds this helpful particularly at night. I have placed the patient on cna caregiver list to help establish a local primary care physician. <Albaro Granger MD - Last Filed: 07/04/18 01:59> Patient received in signout from MERRITT Segura. Plan to follow-up on CT imaging and reassess patient for disposition. ECG reviewed and interpreted by me: Normal sinus rhythm 94 bpm, normal axis, nondiagnostic. Labs reviewed: * mild hypomagnesemia noted. Will give magnesium 1 g IV. * mild leukocytosis noted * hyperglycemia noted CTA of the chest interpreted by radiology: Pulmonary arteries normal with no pulmonary embolism. Aorta normal. No aortic dissection. No aortic aneurysm. No pneumonia noted. Liver with heterogeneous attenuation probably from hepatic steatosis with scattered areas of fatty sparing. Splenectomy noted. Nonobstructing left nephrolith with left kidney renal scarring. No acute findings. Patient reassessed and has remained stable here in ED. I reviewed results with the patient. Patient immunosuppressed post splenectomy. Plan to treat with levaquin for possible bacterial bronchitis refractory to macrolide. Initial dose provided here. I discussed need to take medications as prescribed. Will give new albuterol inhaler. Plan for patient to follow-up with PCP. Patient needs a PCP. I will ask that care management help arrange close (<1 week) outpatient follow-up with a primary care physician. Disposition decision was made weighing the risks and benefits of hospitalization versus outpatient treatment, the risk for further decompensation , and the patient's wishes. The patient was stable and requested discharge. Prior to discharge, my usual and customary return precautions were reviewed with the patient - this included follow-up instructions and reason to return to the emergency department if condition worsens, does not improve as expected, or other new concerns arise. HPI <MERRITT Marie - Last Filed: 07/05/18 09:24> General Mode of arrival: ambulatory . Date/Time Provider Initiated Documentation: 07/03/18 22:03 . Limitations to Documentation: no limitations . Information obtained by: patient . History of Present Illness 52 year old M presents to the emergency department with the chief complaint of cough, described as severe, with intensity rated at 10. Quality is described as aching, and is localized to the chest and back. Patient denies neck and abdomen. Patient started experiencing this week(s) (4) and it has been constant. No relieving factors improve symptom(s), Movement worsens symptoms and Other factors that worsen symptoms (cough) . Patient notes chest pain, cough and shortness of breath; denies fever/chills, headaches, loss of appetite, nausea/vomiting and rash. Patient did receive the following treatments prior to arrival, other (previously on Azithromycin, albuterol, mucinex and prednisone) Related Data Home Medications Medication Instructions Recorded Confirmed amlodipine 1 tab PO DAILY 01/31/16 02/10/16 baclofen 1 tab PO DAILY 01/31/16 02/10/16 calcitonin (salmon) [Miacalcin] 1 spray INTRANASAL DAILY 01/31/16 02/10/16 dextroamphetamine-amphetamine 30 mg PO DAILY 01/31/16 02/10/16 golimumab [Simponi] 0.5 ml PO 01/31/16 losartan 1 tab PO DAILY 01/31/16 02/10/16 metformin 1 tab PO DAILY 01/31/16 02/10/16 misoprostol [Cytotec] 1 cap PO BID 01/31/16 02/10/16 pravastatin 40 mg PO DAILY 01/31/16 02/09/16 lidocaine [Lidoderm] 1 patch TOPICAL Q24H #4 patch 06/16/18 albuterol sulfate 2 puff IH Q6H PRN #6.7 gm 07/04/18 levofloxacin 750 mg PO DAILY #4 tab 07/04/18 Previous Rx's Medication Instructions Recorded lidocaine [Lidoderm] 1 patch TOPICAL Q24H #4 patch 06/16/18 albuterol sulfate 2 puff IH Q6H PRN #6.7 gm 07/04/18 levofloxacin 750 mg PO DAILY #4 tab 07/04/18 Allergies Allergy/AdvReac Type Severity Reaction Status Date / Time No Known Allergies Allergy Unverified 07/03/18 22:56 General Stated Complaint: RespSymp SHINE: 3 Review of Systems <MERRITT Marie - Last Filed: 07/05/18 09:24> Constitutional Reports as per HPI, Denies chills, Reports fatigue, Denies fever(s), Denies headache(s) and Denies poor appetite Eyes Denies irritation ENT Reports as per HPI, Denies dysphagia, Reports dry mouth, Denies otalgia, Denies headache(s), Reports nasal congestion, Denies sinus pain, Denies sinus pressure and Denies sore throat Cardiovascular Reports as per HPI, Reports chest pain, Denies palpitations, Reports dyspnea and Reports dyspnea on exertion Respiratory Reports as per HPI, Reports cough, Reports dyspnea and Reports dyspnea on exertion Gastrointestinal Reports as per HPI, Denies abdominal pain, Reports change in bowel habits ( endorses several weeks of soft stool. ), Denies dysphagia, Denies nausea and Denies vomiting Genitourinary Reports system reviewed and no additional complaints, except as docu (denies any change in urinary habits) Musculoskeletal Reports as per HPI and Reports back pain (persistent upper back pain) Integumentary/Breasts Reports as per HPI and Denies rash Neurologic Reports as per HPI and Denies headache(s) Endocrine Reports fatigue and Denies palpitations Exam <MERRITT Marie - Last Filed: 07/05/18 09:24> Const General: cooperative, healthy appearing, comfortable, no acute distress, well developed and well groomed Nutritional Appearance: well nourished and overweight Orientation: alert and awake [facility] Head: normal to inspection and normocephalic Ears: hearing grossly normal bilaterally General nose exam: external nose normal Mouth: oral mucosae normal, lip normal, oropharynx normal and mucous membranes dry (patient appears dry on exam) Teeth and gingiva: dentition normal Throat: posterior oropharynx normal, tonsils normal and uvula midline Eyes General: appearance normal, both eyes and all related structures Neck Neck: normal visual inspection, full ROM, no lymphadenopathy and no meningeal signs Resp Effort & Inspection: normal respiratory effort, able to speak in complete sentences and no respiratory distress Auscultation: clear to auscultation bilaterally, no rales, no rhonchi and no wheezes Cardio Rate: regular rate Rhythm: regular rhythm Heart Sounds: S1 normal and S2 normal GI Inspection: normal to inspection Palpation: soft, no hepatosplenomegaly, no guarding and nontender Back/Spine/Pelvis Back: no CVA tenderness Thoracic/Lumbar Spine: thoracic and lumbar spine normal to inspection Skin General skin exam: no rashes or lesions noted Trauma: no lacerations or abrasions Neuro General: alert and awake Cognition: normal cognition Speech: speech normal Gait: normal gait Extrem General: normal to inspection, no pedal edema, no calf tenderness and normal gait Psych Appearance: grossly normal and well kempt Mental Status: mental status grossly normal Speech and Movement: speech and movement normal Course <MRERITT Marie - Last Filed: 07/05/18 09:24> Vital Signs Temperature 36.6 C 07/03/18 22:01 Pulse 105 H 07/03/18 22:01 Respiratory Rate 20 07/03/18 22:01 Blood Pressure 159/54 H 07/03/18 22:01 Pulse Oximetry 96 07/03/18 22:01 Temperature 36.6 C 07/03/18 22:01 Temperature Source Temporal Artery Scan 07/03/18 22:01 Pulse 105 H 07/03/18 22:01 Respiratory Rate 20 07/03/18 22:01 Blood Pressure 159/54 H 07/03/18 22:01 Pulse Oximetry 96 07/03/18 22:01 Oxygen Delivery Method Room Air 07/03/18 22:01 Oxygen Flow Rate 0 07/03/18 22:01 Pain Level 10 07/03/18 22:01 Sign Out <MERRITT Marie - Last Filed: 07/05/18 09:24> Sign Out Data: Sign Out Comment: Patient being evaluated for persistent cough and upper back pain x [address] for evaluation of dissection pending. Care transitioned to Dr. Granger. Last updated by Joy Lopez PA at 07/04/18 00:21 Post-Handoff Eval:
--- NOTE | 2018-07-03 23:35 | DI.VRAD_ITS ---
EXAM: XR Chest, 2 Views EXAM DATE/TIME: 07/03/2018 10:55 PM CLINICAL HISTORY: 52 years old, male; Signs and symptoms; Cough; Prior surgery; Surgery date: 6+ months; Surgery type: Shoulder; Patient HX: Cough x 4 weeks with wheezing TECHNIQUE: XR of the chest, 2 views. COMPARISON: SC XR CHEST 2V PA LATERAL 06/16/2018 1:13 PM FINDINGS: Lungs: Clear lungs. Pleural space: No pneumothorax. No sizable pleural effusion. Heart/Mediastinum: No cardiomegaly. Upper abdomen: Surgical clips project within the left upper quadrant. Bones/joints: Internal fixation involving the proximal left humerus. IMPRESSION: Clear lungs. Dictated and Authenticated by: Jesse Peck MD. Ordering:KENDAL TIPTON MD
[2018-07-03] MEDS: Omnipaque 350 MG/ML 100 ML BTL IJ (23:56)
[2018-07-04] MEDS: MAGNESIUM SULFATE 1 GM/100 ML BAG IVPB (00:40)
--- NOTE | 2018-07-04 00:54 | DI.VRAD_ITS ---
EXAM: CT Angiography Chest With Intravenous Contrast EXAM DATE/TIME: 07/03/2018 11:46 PM CLINICAL HISTORY: 52 years old, male; Pain and signs and symptoms; Cough and shortness of breath and wheezing; Other: Back pain; Patient HX: Cough, wheezing, back pain, SOB. TECHNIQUE: Axial computed tomographic angiography images of the chest with intravenous contrast using CT angiography protocol. All CT scans at this facility use at least one of these dose optimization techniques: automated exposure control; mA and/or kV adjustment per patient size (includes targeted exams where dose is matched to clinical indication); or iterative reconstruction. Coronal and sagittal reformatted images were created and reviewed. MIP reconstructed images were created and reviewed. CONTRAST: 100 ml of Omnipaaque 350 administered intravenously. COMPARISON: CR XR CHEST 2V PA LATERAL 07/03/2018 11:11 PM FINDINGS: Pulmonary arteries: Normal. No pulmonary emboli. Aorta: Normal. No aortic aneurysm. No aortic dissection. Lungs: Incidentally noted is an azygos lobe. Pleural space: Normal. No pneumothorax. No pleural effusion. Heart: Normal. No cardiomegaly. No pericardial effusion. Bones/joints: Unremarkable. No acute fracture. Soft tissues: Unremarkable. Lymph nodes: Unremarkable. No enlarged lymph nodes. Liver: Heterogeneous liver attenuation is probably from hepatic steatosis with scattered areas of fatty sparing. Spleen: Splenectomy. Kidneys and ureters: There is a nonobstructing left nephrolith with left kidney renal scarring. IMPRESSION: No acute findings. Dictated and Authenticated by: Jeffy Perez MD. Ordering:KENDAL TIPTON MD
[2018-07-04] MEDS: Albuterol HFA 8 GM 60 PUFF INH IH (02:06)
[2018-07-04] MEDS: Acetaminophen 325 MG TAB 650 MG PO (02:06)
[2018-07-04] MEDS: LEVOFLOXACIN 500 MG, LEVOFLOXACIN 250 MG 750 MG PO (02:07)
[2018-07-04 02:46] VITALS: BP 121/72; PULSE 87; RESP 18; TEMP 37.2; O2SAT 95
== END 2018-07-04 02:12 | disposition home or self-care (01) ==
PROVIDERS: Physician Assistant; Emergency Provider Student in an Organized Health Care Education/Training Program; PCP Family Medicine
DX: E11.65 Type 2 diabetes mellitus with hyperglycemia (principal); Z79.84 Long term (current) use of oral hypoglycemic drugs; J20.9 Acute bronchitis, unspecified; E83.42 Hypomagnesemia; R06.02 Shortness of breath; I10 Essential (primary) hypertension
CPT/HCPCS: 36415; 71275; 80053; 93005; 96361; 96365; 96375; 99285; 71046; 83735; 83880; 84484; 85025; 85379; 93010; 99284; J1885; J3475; J3490

== ENCOUNTER 2018-10-06 07:13 | Inpatient (IN) | payer MEDICARE, MEDICAID, SELFPAY ==
[2018-10-06] VITALS (51 sets, daily range): BP systolic 126–156; BP diastolic 70–110; PULSE 79–104; RESP 4–58; TEMP 36.4–37; O2SAT 89–99
[2018-10-06 07:46] LABS: BE (Venous) 1.1 mmol/L (-3-3); HCO3 (Venous) 27 mmol/L (22-28); O2 Sat (Venous) 36 % (70-80); TCO2 (Venous) 25 mmol/L (22-29); pCO2 (Venous) 55 mm/Hg (34-47); pH (Venous) 7.31 (7.32-7.43); pO2 (Venous) 23 mm/Hg (28-44)
[2018-10-06] MEDS: Ketorolac 30 MG/ML VIAL IVP (07:50)
[2018-10-06] MEDS: methylPREDNISolone SUCC 125 MG VIAL IVP (07:51)
[2018-10-06] MEDS: Albuterol/Ipratropium 3 ML UPD VIAL UPD ×3 (07:52→23:48)
[2018-10-06 07:55] LABS: Abs Immature Grans 0.03 k/cumm (0.0-0.09); Absolute Basophil Count 0.03 k/cumm (0.0-0.2); Absolute Lymphocyte Count 3.16 k/cumm (1.2-3.4); Absolute Monocyte Count 0.94 k/cumm (0.11-0.7); Absolute Neutrophil Count 7.01 k/cumm (1.2-6.7); Basophils % 0.3; Eosinophils % 0.9; HCT 50.2 % (40.0-50.0); HGB 16.9 g/dL (13.5-17.5); Immature Grans % 0.3; Mean Corp. HGB Concentration 33.7 g/dL (32.0-36.0); Mean Corpuscular Hemoglobin 30.5 pg (27.0-33.0); Mean Corpuscular Volume 90.6 fL (80-95); Mean Platelet Volume 10.3 fL (8.0-11.0); Monocytes % 8.3; Neutrophils % 62.2; Platelet Count 444 x1000/uL (130-400); RBC 5.54 m/cumm (4.50-6.00); RBC Distribution Width 12.9 % (11.8-14.1); White Blood Cell Count 11.27 k/cumm (4.4-10.8)
--- NOTE | 2018-10-06 08:01 | ED.GENADUL_ITS ---
Medical Decision Making <Raul Negron DO - Last Filed: 10/06/18 21:50> This is a 52-year-old male with a past medical history of ankylosing spondylitis, cholesterol, chronic unremitting cough for the last 2-3 months which is been unresponsive to steroids, antibiotics, and inhaler. Patient symptoms have been on improve, and physical exam today is relatively benign. He has had a thorough workup on his previous visits with a negative CT angiogram, benign laboratory workups, negative cardiac workups. Today his vital signs are reassuring, lung sounds are clear. We will get a chest x-ray to rule. We will get a cardiac workup, laboratory workup, and evaluate for any acute etiology. I do feel that he will require follow-up with payment specialist for chronic bronchitis. Case will be signed out to my colleague Dr. Albaro Granger. Please refer to his documentation for management, laboratory eval, and disposition. EKG 7: 30 Rate 93, intervals normal, machine is read as atrial flutter however this is sinus rhythm, no ST elevations or depressions, no T wave inversions, minimal Q wave in V3, no evidence of STEMI. No evidence of WPW epsilon wave, or delta wave. <Albaro Granger MD - Last Filed: 10/06/18 21:42> Care signed out at 8:15 --Plan to followup labs, second trop. 11:39 -- Initial chem concerning for hyperglycemia and mild anion gap with nl bicarb. Second trop neg and unchanged at 3 hours. Patient reassessed and feels better. No pain. Pt was administered 2L crystaloid bolus. Repeat chem revealed no anion gap. Hyperglycemia improved. chest x-ray interpreted by radiology: Increasing opacities in the left base may represent atelectasis or pneumonia. Patient has been treated for pneumonia in the past but he has not been compliant with the treatment regiment. I am concerned that he has recurrent or persistent prior PNA that had been treated with levaquin in past, immunocompromised post splenectomy, hyperglycemic with noncompliance. He will benefit from IV abx, tight glucose control, diabetic enducation and definitive outpatient follow-up. Atypical presentation of PNA. Will check blood cx and lactate. Will give levaquin IV. Will admit. Spoke with Dr. Ribeiro who will admit. HPI <Raul Negron DO - Last Filed: 10/06/18 21:50> General Date/Time Provider Initiated Documentation: 10/06/18 07:26 . HPI Narrative: This is a 52-year-old male with a past medical history ankylosing spondylitis, diabetes mellitus, high cholesterol, who presents today for evaluation of unremitting cough. Patient has been seen and assessed here in the emergency department twice. Initially he was seen by myself on 06/17, he had a relatively benign workup at that time, chest x-ray was unremarkable, laboratory workup was unimpressive, no evidence of cardiac etiology. He was started on azithromycin and steroids at that time, as well as breathing treatment. The patient had mild improvement of his symptoms with the steroids, however his cough persisted. He was then seen on 07/03 where he had a CT angiogram of the chest which showed no significant abnormality or pulmonary disease for that mat ter. No evidence of pneumonia or PE. He was started on Levaquin at that time for concern for being immunocompromise and persistent bronchitis. The patient was scheduled with our hospice case manager for follow-up with a new PCP however he has not yet done this. Patient presents today for continuation of his symptoms. He states that his cough is continued, he has occasional sputum which is usually clear or green. He denies any current hemoptysis. He does have pain when he coughs, as well as, pain when he breathes in general. He feels that the steroids with the most effective component for his treatment, he states that he took the antibiotics as directed. He has run out of his inhaler. Patient also does complain of chronic generalized body pain and back pain which she states is unchanged. He denies any red flags of saddle anesthesia, bowel or bladder incontinence, or new numbness tingling or weakness. Denies PE risk factors such as recent long car rides, immobilization, recent surgery, prior history of DVT or PE, family history of PE or DVT, morbid obesity, exogenous estrogen and smoking, history of cancer. Related Data Home Medications Medication Instructions Recorded Confirmed Miacalcin 1 spray INTRANASAL DAILY 01/31/16 10/06/18 Simponi 0.5 ml PO 01/31/16 amlodipine 1 tab PO DAILY 01/31/16 10/06/18 baclofen 1 tab PO DAILY 01/31/16 10/06/18 dextroamphetamine-amphetamine 30 mg PO DAILY 01/31/16 10/06/18 losartan 1 tab PO DAILY 01/31/16 10/06/18 metformin 1 tab PO DAILY 01/31/16 10/06/18 misoprostol [Cytotec] 1 cap PO BID 01/31/16 10/06/18 pravastatin 40 mg PO DAILY 01/31/16 02/09/16 lidocaine [Lidoderm] 1 patch TOPICAL Q24H #4 patch 06/16/18 10/06/18 albuterol sulfate 2 puff IH Q6H PRN #6.7 gm 07/04/18 10/06/18 levofloxacin 750 mg PO DAILY #4 tab 07/04/18 10/06/18 Previous Rx's Medication Instructions Recorded lidocaine [Lidoderm] 1 patch TOPICAL Q24H #4 patch 06/16/18 albuterol sulfate 2 puff IH Q6H PRN #6.7 gm 07/04/18 levofloxacin 750 mg PO DAILY #4 tab 07/04/18 Allergies Allergy/AdvReac Type Severity Reaction Status Date / Time No Known Allergies Allergy Unverified 07/03/18 22:56 General Stated Complaint: Chest Pain SHINE: 3 Review of Systems <Raul Negron DO - Last Filed: 10/06/18 21:50> Review of Systems All systems reviewed & are unremarkable except as noted in HPI and below PFSH <Raul Negron DO - Last Filed: 10/06/18 21:50> Medical History Cough (Acute) Neuropathy (Acute) Surgical History H/O splenectomy (Acute) Family History Mother Diabetes Heart disease Father Heart disease Stroke Social History Smoking and Tabacco status: Never Exam <Raul Negron DO - Last Filed: 10/06/18 21:50> Narrative Exam Narrative: 1.Const: Well-nourished, Well-developed, appearing stated age 2.Eyes: PERRL, no conjunctival injection, and symmetrical lids. 3.ENT: Atraumatic external nose and ears. Moist MM. Neck: Symmetric, trachea midline, No thyromegaly. Patient demonstrates good movement of cervical neck. There is no nuchal rigidity, no nuchal tenderness. Patient is able to flex the neck without any difficulty or significant pain. Negative Kernig's and Brudzinski sign. 4.CVS: +S1/S2, No murmurs or gallops. Peripheral pulses 2+ and equal in all extremities. Brisk capillary refill in all extremities. 5.RESP: Unlabored respiratory effort. Clear to auscultation bilaterally. No wheezes rales or rhonchi 6.GI: Soft, Nontender/Nondistended, No hepatosplenomegaly. No guarding or rebound. 7.MSK: Normocephalic/Atraumatic, Extremities w/o deformity or ttp No cyanosis or clubbing, Normal movement of all extremities, no significant lower extremity swelling. No calf tenderness. 8.Skin: Warm, Dry. No rashes or lesions. 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 Sensation grossly intact, no focal neurologic deficits. 10.Psych: (AAO) x3. Appropriate mood and affect Course <Raul Negron, DO - Last Filed: 10/06/18 21:50> Vital Signs Temperature 36.4 C 10/06/18 07:20 Pulse 99 H 10/06/18 07:20 Respiratory Rate 20 10/06/18 07:20 Blood Pressure 135/109 H 10/06/18 07:20 Pulse Oximetry 95 10/06/18 07:20 Temperature 36.4 C 10/06/18 07:20 Temperature Source Temporal Artery Scan 10/06/18 07:20 Pulse 99 H 10/06/18 07:20 Respiratory Rate 20 10/06/18 07:20 Blood Pressure 135/109 H 10/06/18 07:20 Blood Pressure Position Sitting 10/06/18 07:20 Pulse Oximetry 95 10/06/18 07:20 Oxygen Delivery Method Room Air 10/06/18 07:20 Oxygen Flow Rate 0 10/06/18 07:20 Pain Level 10 10/06/18 07:20 Lab/Test Results Lab/Test Results: Laboratory Tests Range/Units 10/06/18 10/06/18 07:41 07:41 WBC (4.4-10.8) k/cumm 11.27 H RBC (4.50-6.00) m/cumm 5.54 Hgb (13.5-17.5) g/dL 16.9 Hct (40.0-50.0) % 50.2 H MCV (80-95) fL 90.6 MCH (27.0-33.0) pg 30.5 MCHC (32.0-36.0) g/dL 33.7 RDW (11.8-14.1) % 12.9 Plt Count (130-400) x1000/uL 444 H MPV (8.0-11.0) fL 10.3 Immature Gran % 0.3 Neutrophils % 62.2 Lymphocytes % 28.0 Monocytes % 8.3 Eosinophils % 0.9 Basophils % 0.3 Absolute Neutrophils (1.2-6.7) k/cumm 7.01 H Absolute Lymphocytes (1.2-3.4) k/cumm 3.16 Absolute Monocytes (0.11-0.7) k/cumm 0.94 H Absolute Eosinophils (0.0-0.7) k/cumm 0.10 Absolute Basophils (0.0-0.2) k/cumm 0.03 VBG pH (7.32-7.43) 7.31 L VBG pCO2 (34-47) mm/Hg 55 H VBG pO2 (28-44) mm/Hg 23 L VBG HCO3 (22-28) mmol/L 27 VBG Total CO2 (22-29) mmol/L 25 VBG O2 Saturation (70-80) % 36 L VBG Base Excess (-3-3) mmol/L 1.1 Sign Out <Raul Negron DO - Last Filed: 10/06/18 21:50> Sign Out Data: Sign Out Comment: pending labs imaging, flu swab, serial vtrop Last updated by Raul Negron DO at 10/06/18 08:18 Post-Handoff Eval:
[2018-10-06 08:10] LABS: ALT 35 U/L (12-78); AST 17 U/L (15-37); Albumin 3.6 g/dL (3.4-5.0); Alkaline Phosphatase 169 U/L (46-116); Anion Gap 11.2 mmol/L (3-11); BUN 18 mg/dL (7-18); Bilirubin, Total 0.4 mg/dL (0.2-1.0); CO2 28.8 mmol/L (21.0-32.0); Calcium 9.9 mg/dL (8.5-10.1); Chloride 95 mmol/L (98-107); Estimated GFR 58.43 (mL/min/1.73m2); Potassium 4.6 mmol/L (3.5-5.1); Sodium 135 mmol/L (136-145); Total Protein 8.9 g/dL (6.4-8.2)
[2018-10-06 08:11] LABS: Troponin I < 0.02 ng/mL (0.00-0.06)
[2018-10-06 08:12] LABS: Glucose 527 mg/dL (70-100)
--- NOTE | 2018-10-06 08:29 | DI.RAD_ITS ---
SYMPTOMS/DIAGNOSIS: COUGH FOR 2 MONTHS, NOT IMPROVING CHEST: Two views. Comparison 07/03/18. The heart size and pulmonary vasculature are within normal limits. There are linear infiltrates seen in the lungs bilaterally which appear stable. This may represent scarring. Recurrent atelectasis or pneumonia can not be excluded. The heart size is within normal limits. No pleural effusions or pneumothoraces are identified. There are surgical clips again seen in the left upper quadrant. Degenerative changes are seen in the spine. IMPRESSION: Stable linear infiltrates in the lung bases. This may represent scarring. Atelectasis or pneumonia can not be excluded.
[2018-10-06] MEDS: Normal Saline 1,000 ML 1000 ML IV ×2 (09:11→10:04)
--- NOTE | 2018-10-06 09:20 | DI.VRAD_ITS ---
EXAM: XR Chest, 2 Views EXAM DATE/TIME: 10/06/2018 7:28 AM CLINICAL HISTORY: 52 years old, male; Signs and symptoms; Other: Cough x2 months, unimproving TECHNIQUE: XR of the chest, 2 views. COMPARISON: CR XR CHEST 2V PA LATERAL 07/03/2018 11:11 PM FINDINGS: Lungs: Increasing opacities in the left base may represent atelectasis or pneumonia. Pleural space: Unremarkable. No pleural effusion. No pneumothorax. Heart/Mediastinum: Stable cardiac silhouette Upper abdomen: Surgical clips in the left upper quadrant of the abdomen Bones/joints: Internal fixation device in the left humerus IMPRESSION: Increasing opacities in the left base may represent atelectasis or pneumonia. Dictated and Authenticated by: Edgar Morgan MD. Ordering:SHAQ Carter MD
[2018-10-06 11:16] LABS: Anion Gap 10.3 mmol/L (3-11); BUN 18 mg/dL (7-18); CO2 24.7 mmol/L (21.0-32.0); CREATININE 1.08 mg/dL (0.70-1.30); Calcium 8.9 mg/dL (8.5-10.1); Chloride 100 mmol/L (98-107); Glucose 434 mg/dL (70-100); Potassium 4.2 mmol/L (3.5-5.1); Sodium 135 mmol/L (136-145)
[2018-10-06 11:19] LABS: Troponin I < 0.02 ng/mL (0.00-0.06)
[2018-10-06] MEDS: metFORMIN 500 MG TAB PO (12:06)
[2018-10-06 12:19] LABS: Lactate-non-spesis 1.9 mmol/l (0.6-1.4)
[2018-10-06] MEDS: CEFEPIME 2 GM in Normal Saline 100 ML IVPB (12:23)
[2018-10-06] MEDS: LEVOFLOXACIN 750 MG/150 ML BAG 100 MG IVPB (13:00)
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
[2018-10-06] MEDS: VANCOMYCIN 1,500 MG in Normal Saline 500 ML 333.3333 MG IVPB (15:30)
[2018-10-06] MEDS: Enoxaparin 40 MG/0.4 ML SYR SC (15:30)
[2018-10-06] MEDS: Normal Saline 1,000 ML 150 ML IV ×2 (15:30→23:48)
[2018-10-06] MEDS: methylPREDNISolone SUCC 125 MG VIAL 60 MG IVP (15:31)
[2018-10-06] MEDS: Insulin Glargine 300 UNITS/3 ML PEN 10 UNITS SC (15:32)
[2018-10-06] MEDS: Normal Saline Flush 10 ML SYR IVP (15:32)
[2018-10-06] MEDS: Lidocaine 5% Patch 1 PATCH TP (17:05)
[2018-10-06] MEDS: Insulin Aspart 300 UNITS/3 ML PEN SC (17:08)
[2018-10-06 18:54] LABS: Lactate-non-spesis 4.1 mmol/l (0.6-1.4)
[2018-10-06] MEDS: PIPERACILLIN/TAZO 3.375 GM in Normal Saline 50 ML IVPB (20:25)
[2018-10-06] MEDS: Benzonatate 100 MG CAP PO (20:25)
[2018-10-06] MEDS: Misoprostol 100 MCG TAB PO (20:26)
[2018-10-07] VITALS (13 sets, daily range): BP systolic 125–176; BP diastolic 73–100; PULSE 80–105; RESP 1–22; TEMP 35.6–37.1; O2SAT 94–97
[2018-10-07] MEDS: methylPREDNISolone SUCC 125 MG VIAL 60 MG IVP (01:48)
[2018-10-07] MEDS: PIPERACILLIN/TAZO 3.375 GM in Normal Saline 50 ML IVPB ×3 (03:00→20:20)
[2018-10-07] MEDS: VANCOMYCIN 1,500 MG in Normal Saline 500 ML 333 MG IVPB ×2 (03:34→17:09)
[2018-10-07] MEDS: LIDOCAINE Patch Removal 1 EACH TP (05:31)
[2018-10-07] MEDS: Albuterol/Ipratropium 3 ML UPD VIAL UPD ×4 (05:31→23:13)
[2018-10-07 05:49] LABS: Hemoglobin A1C 10.5 % (4.5-6.2)
[2018-10-07 07:08] LABS: Abs Immature Grans 0.05 k/cumm (0.0-0.09); Absolute Lymphocyte Count 1.43 k/cumm (1.2-3.4); Basophils % 0.1; HCT 41.1 % (40.0-50.0); HGB 14.2 g/dL (13.5-17.5); Immature Grans % 0.3; Lymphocytes % 8.2; Mean Corp. HGB Concentration 34.5 g/dL (32.0-36.0); Mean Corpuscular Hemoglobin 30.8 pg (27.0-33.0); Mean Corpuscular Volume 89.2 fL (80-95); Mean Platelet Volume 10.6 fL (8.0-11.0); Monocytes % 1.8; Neutrophils % 89.6; Platelet Count 416 x1000/uL (130-400); RBC 4.61 m/cumm (4.50-6.00); RBC Distribution Width 12.5 % (11.8-14.1); White Blood Cell Count 17.46 k/cumm (4.4-10.8)
[2018-10-07 07:17] LABS: Absolute Basophil Count 0.02 k/cumm (0.0-0.2); Absolute Monocyte Count 0.31 k/cumm (0.11-0.7); Absolute Neutrophil Count 15.64 k/cumm (1.2-6.7); Anion Gap 11.4 mmol/L (3-11); BUN 23 mg/dL (7-18); CO2 23.6 mmol/L (21.0-32.0); CREATININE 1.12 mg/dL (0.70-1.30); Calcium 8.9 mg/dL (8.5-10.1); Chloride 99 mmol/L (98-107); Glucose 408 mg/dL (70-100); Magnesium 1.6 mg/dL (1.8-2.4); Potassium 4.1 mmol/L (3.5-5.1); Sodium 134 mmol/L (136-145)
[2018-10-07] MEDS: Insulin Aspart 300 UNITS/3 ML PEN SC ×3 (08:13→17:12)
[2018-10-07] MEDS: Calcitonin-Salmon, Synthetic 3.7 ML BTL NS (08:14)
[2018-10-07] MEDS: Benzonatate 100 MG CAP PO ×3 (08:16→20:19)
[2018-10-07] MEDS: Misoprostol 100 MCG TAB PO ×2 (08:16→20:19)
[2018-10-07] MEDS: Pravastatin 40 MG TAB PO (08:17)
[2018-10-07] MEDS: Pantoprazole 40 MG TABCR PO (08:17)
[2018-10-07] MEDS: amLODIPine 10 MG TAB PO (08:17)
[2018-10-07] MEDS: Baclofen 10 MG TAB 20 MG PO (08:18)
[2018-10-07] MEDS: Losartan 50 MG TAB 100 MG PO (08:18)
--- NOTE | 2018-10-07 09:40 | INITIAL_ITS ---
- If Service Date Differs Date of service: 10/07/18 Time of Service: 09:30 Care Management Initial Assess REASON FOR HOSPITALIZATION:: Pneumonia PAST MEDICAL HISTORY/PAST SURGICAL HISTORY:: Cough (Acute). Neuropathy (Acute). H/O splenectomy (Acute) PREVIOUS FUNCTIONAL STATUS/SOCIAL/FAMILY SUPPORTS:: Ervin resides in [place], he states that he has been moving around and does not have secure housing. He is independent at baseline, and manages ADL's. CURRENT FUNCTIONAL STATUS:: Currently Ervin is lying in bed this morning, he is on his phone throughout the majority of the discussion. Ervin has requested a laptop which has provided to him for use. ADVANCE DIRECTIVES:: None on file Has patient been provided with information about the portal?: Yes Did the patient sign up for the portal?: No CODE STATUS:: Full Code INSURANCE COVERAGE / FINANCIAL ISSUES:: Medicare, Medicaid CURRENT HOME/COMMUNITY SERVICES/EQUIPMENT:: Currently Ervin has no services or medical equipment in the community. PRIMARY CARE PHYSICIAN:: Juan Devries POTENTIAL DISCHARGE NEEDS:: F/U appointment with PCP PATIENT/FAMILY EDUCATION NEEDS:: Review DC instructions, any limitations, and o ngoing DC planning discussion. Discuss 'Ask Me Three' ANTICIPATED BARRIERS TO DISCHARGE:: None identified at this time. TRANSPORTATION:: Via private vehicle PLAN:: Ervin will return to the community once medically cleared. He will F/U with PCP and plan of care as prescribed. Transportation via private vehicle.
[2018-10-07] MEDS: Normal Saline Flush 10 ML SYR IVP (10:32)
[2018-10-07 10:52] LABS: Lactate-non-spesis 3.6 mmol/l (0.6-1.4)
[2018-10-07] MEDS: MAGNESIUM SULFATE 2 GM/50 ML BAG IVPB (11:18)
[2018-10-07] MEDS: Insulin Glargine 300 UNITS/3 ML PEN 10 UNITS SC ×2 (11:23→21:19)
[2018-10-07] MEDS: guaiFENesin/CODEINE PHOSPHATE 10 ML CUP 5 ML PO (12:32)
--- NOTE | 2018-10-07 12:34 | PHARADMIT ---
Admission Pharmacy Clinical Review pneumonia Code Status Full Code Current Weight 99.79 kg Renally Cleared and Narrow Therapeutic Index Meds Crcl ~81.1 mL/min using adjusted body weight current meds okay QTc Value / Action Taken QTc 438 BP Control, Fever BP 164/93 afebrile Electrolytes reviewed Na 134 mag 1.6 DVT Prophylaxis enoxaparin Opiate Usage / Scheduled Bowel Regimen Ordered prn/prn Plt/SCr for Heparin / Enoxaparin plt 416 SCr 1.12 INR for Warfarin n/a H/H stable, WBC/Bands h/h 14.2/41.1 WBC 17.46 Antibiotic appropriateness vanco and zosyn (day 2 will start this afternoon/evening) Cultures and Sensitivities blood cultures pending rapid flu negative Surgical ABX d/c within 24 hr n/a DM control / Insulin Dosing BG 408 scheduled glargine and sliding scale aspart Heart Failure (Check EF%) (AMISHA's, B-Block, Diuretics) amlodipine, losartan, IV to PO Switch n/a Home Meds Reviewed yes Home Meds Not Ordered golimumab and metformin Comments
[2018-10-07] MEDS: Enoxaparin 40 MG/0.4 ML SYR SC (13:39)
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
[2018-10-07] MEDS: LEVOFLOXACIN 750 MG/150 ML BAG 100 MG IVPB (15:02)
[2018-10-07] MEDS: Lidocaine 5% Patch 1 PATCH TP (17:16)
[2018-10-07 17:30] LABS: Lactate-non-spesis 3.9 mmol/l (0.6-1.4)
[2018-10-07] MEDS: predniSONE 20 MG TAB 40 MG PO (20:19)
[2018-10-07] MEDS: Magnesium Chloride 64 MG TABCR PO (20:20)
[2018-10-07] MEDS: Normal Saline 1,000 ML 150 ML IV (21:21)
[2018-10-08] VITALS (7 sets, daily range): BP systolic 124–171; BP diastolic 75–86; PULSE 74–109; RESP 4–20; TEMP 36.1–37.2; O2SAT 93–98
[2018-10-08] MEDS: PIPERACILLIN/TAZO 3.375 GM in Normal Saline 50 ML IVPB ×3 (03:09→20:22)
[2018-10-08] MEDS: VANCOMYCIN 1,500 MG in Normal Saline 500 ML 333 MG IVPB ×2 (03:44→16:45)
[2018-10-08] MEDS: Albuterol/Ipratropium 3 ML UPD VIAL UPD ×4 (05:20→23:13)
[2018-10-08] MEDS: LIDOCAINE Patch Removal 1 EACH TP (05:20)
[2018-10-08] MEDS: Normal Saline 1,000 ML 150 ML IV ×2 (05:21→14:47)
[2018-10-08 07:32] LABS: Abs Immature Grans 0.04 k/cumm (0.0-0.09); Absolute Basophil Count 0.02 k/cumm (0.0-0.2); Absolute Eosinophil Count 0.02 k/cumm (0.0-0.7); Absolute Lymphocyte Count 1.26 k/cumm (1.2-3.4); Absolute Monocyte Count 0.47 k/cumm (0.11-0.7); Absolute Neutrophil Count 15.16 k/cumm (1.2-6.7); Basophils % 0.1; Eosinophils % 0.1; HCT 42.8 % (40.0-50.0); HGB 14.5 g/dL (13.5-17.5); Immature Grans % 0.2; Lymphocytes % 7.4; Mean Corp. HGB Concentration 33.9 g/dL (32.0-36.0); Mean Corpuscular Hemoglobin 30.4 pg (27.0-33.0); Mean Corpuscular Volume 89.7 fL (80-95); Mean Platelet Volume 10.8 fL (8.0-11.0); Monocytes % 2.8; Neutrophils % 89.4; Platelet Count 418 x1000/uL (130-400); RBC 4.77 m/cumm (4.50-6.00); RBC Distribution Width 13.1 % (11.8-14.1); White Blood Cell Count 16.96 k/cumm (4.4-10.8)
[2018-10-08] MEDS: Insulin Aspart 300 UNITS/3 ML PEN SC ×5 (07:55→21:25)
[2018-10-08] MEDS: Benzonatate 100 MG CAP PO ×3 (07:56→20:22)
[2018-10-08] MEDS: Misoprostol 100 MCG TAB PO ×2 (07:56→20:22)
[2018-10-08] MEDS: amLODIPine 10 MG TAB PO (07:56)
[2018-10-08] MEDS: Pravastatin 40 MG TAB PO (07:56)
[2018-10-08] MEDS: Pantoprazole 40 MG TABCR PO (07:56)
[2018-10-08] MEDS: Magnesium Chloride 64 MG TABCR PO ×2 (07:56→20:21)
[2018-10-08] MEDS: predniSONE 20 MG TAB 40 MG PO (07:56)
[2018-10-08] MEDS: Calcitonin-Salmon, Synthetic 3.7 ML BTL NS (07:56)
[2018-10-08] MEDS: Normal Saline Flush 10 ML SYR IVP (07:57)
[2018-10-08] MEDS: Losartan 50 MG TAB 100 MG PO (07:57)
[2018-10-08] MEDS: Baclofen 10 MG TAB 20 MG PO (07:57)
[2018-10-08] MEDS: traMADol 50 MG TAB PO ×2 (07:57→15:04)
[2018-10-08 08:01] LABS: Anion Gap 10.2 mmol/L (3-11); BUN 25 mg/dL (7-18); CO2 23.8 mmol/L (21.0-32.0); CREATININE 1.01 mg/dL (0.70-1.30); Calcium 8.5 mg/dL (8.5-10.1); Chloride 100 mmol/L (98-107); Glucose 389 mg/dL (70-100); Magnesium 1.9 mg/dL (1.8-2.4); Potassium 4.6 mmol/L (3.5-5.1); Sodium 134 mmol/L (136-145)
--- NOTE | 2018-10-08 10:14 | PDOC.CMPRO ---
- If Service Date Differs Date of service: 10/08/18 Time of Service: 10:14 Care Management Progress Note S/O: Ervin is lying in bed when this editorial writer visits this morning, he is pleasant and receptive to discussion. Ervin is playing on the patient laptop during visit. He continues to receive IV antibiotics, and duonebs. A: 52 y/o male admitted 10/06/18 for Pneumonia P: Ervin will return to the community with no anticipated services. He will f/u with PCP and plan of care as prescribed.
--- NOTE | 2018-10-08 10:43 | CHAPLAIN ---
Ervin was working on the laptop when I stopped in. He said his daughter visited yesterday, but that family members have things to do other than visit him. When I asked if he was watching movies on the laptop he said he was investing in the stock market. Ervin is [employer] and was visited yesterday by Fr. Romero from [facility]
[2018-10-08] MEDS: Insulin Glargine 300 UNITS/3 ML PEN 15 UNITS SC ×2 (12:29→21:24)
[2018-10-08] MEDS: Budesonide/Formoterol 160/4.5 6 GM 60 PUFF INH IH ×2 (12:30→20:24)
[2018-10-08] MEDS: LEVOFLOXACIN 750 MG/150 ML BAG 100 MG IVPB (14:39)
[2018-10-08] MEDS: Enoxaparin 40 MG/0.4 ML SYR SC (14:41)
--- NOTE | 2018-10-08 15:20 | DI.RAD_ITS ---
SYMPTOMS/DIAGNOSIS: F/U PNEUMONIA CHEST X-RAY, PORTABLE AP VIEW: Comparison is 10/06/18. Cardiac silhouette is stable and within normal limits, as is the pulmonary vasculature. There is again seen scarring or atelectasis in the right mid lung. There are increased lung markings in the left base, suspicious for progressive pneumonia. No effusions or pneumothoraces are identified. Incidental note is made of an azygos lobe. IMPRESSION: Increased lung markings in the left base suspicious for developing pneumonia.
[2018-10-08 15:45] LABS: Vancomycin, Trough 14.8 ug/mL (10.0-20.0)
[2018-10-08] MEDS: Lidocaine 5% Patch 1 PATCH TP (18:59)
--- NOTE | 2018-10-08 19:08 | W.PM.PROGNOT ---
Date of Service Date of service: 10/08/18 Time of Service: 15:15 Assessment and Plan (1) CAP (community acquired pneumonia): Current visit: Yes Status: Acute in setting of immunosuppression, and clinically not improving. Will discuss with ID. For now, continue same antibiotics (vancomycin, zosyn, levofloxacin), symbicort, and increase steroids. (2) Diabetes type 2, uncontrolled: Current visit: Yes Status: Acute Adjust basal bolus insulin due to steroid induced hyperglycemia. Uncontrolled. DM education consulted. (3) Hypertension: Current visit: Yes Status: Chronic Controlled. No change in tx. (4) GERD (gastroesophageal reflux disease): Current visit: Yes Status: Chronic Continue PPI (5) Ankylosing spondylitis: Current visit: Yes Status: Acute Hold home TNF alpha tam. (6) Discharge planning issues: Current visit: Yes Status: Acute Full code. (7) DVT prophylaxis: Current visit: Yes Status: Acute Lovenox Subjective Interval history since last seen: Mr Annika Walden does not know if he feels better today or not. He continues to have a very harsch cough. He is still short of breath. The cough hasn't been as productive today, but he does bring up yellowish sputum. Denies dizziness, chest pain, nausea, vomiting. Exam Narrative Exam Narrative: General: Obese male, coughing harshly, gets red when coughing HEENT: EOMI, pupils are pinpoint, MMM Heart: RRR, no m/r/g Lungs: wheezy in the L lung field GI: abdomen is soft, nontender, nondistended Extremities: slight nonpitting edema in BLE's, no clubbing or cyanosis. Objective Objective Clinical Data: Abnormal lab results 10/08/18 10/08/18 Range/Units 06:32 06:32 WBC 16.96 H (4.4-10.8) k/cumm Plt Count 418 H (130-400) x1000/uL Absolute Neutrophils 15.16 H (1.2-6.7) k/cumm Sodium 134 L (136-145) mmol/L BUN 25 H (7-18) mg/dL Glucose 389 H (70-100) mg/dL Vital Signs Temperature 37.2 C 10/08/18 15:49 Temperature Source Tympanic 10/08/18 15:49 Pulse 98 H 10/08/18 15:49 Pulse Rhythm Regular 10/08/18 15:34 Pulse 93 H 10/06/18 13:31 Respiratory Rate 18 10/08/18 15:49 Respiratory Effort 10/08/18 15:34 Respiratory Depth Normal 10/08/18 15:34 Respiratory Pattern Normal 10/08/18 15:34 Blood Pressure 124/76 10/08/18 15:49 Blood Pressure Mean 95 10/06/18 13:31 Blood Pressure Position Sitting 10/06/18 07:20 Pulse Oximetry 95 10/08/18 15:49 Oxygen Delivery Method Room Air 10/08/18 15:49 Oxygen Flow Rate 0 10/08/18 15:49 Pain Level 8 10/08/18 15:04 Intake & Output 10/07/18 10/08/18 10/08/18 23:59 11:59 23:59 Intake Total 2080 / 4280 2170 / 4472.0 2302.0 / 4472.0 Output Total 1200 / 4850 1350 / 3950 2600 / 3950 Balance 880 / -570 820 / 522.0 -298.0 / 522.0 Weight 101.1 kg 100.9 kg Intake: IV 800 / 2350 1550 / 3372.0 1822.0 / 3372.0 Oral 1280 / 1930 620 / 1100 480 / 1100 Output: Urine 1200 / 4850 1350 / 3950 2600 / 3950 Other: Urine Color Yellow Yellow Yellow Urine Appearance Clear Clear Urine Odor Normal Normal Comment voiding in urinal and toilet as needed. Voiding Methods Urinal Urinal Urinal Laboratory Results WBC 16.96 k/cumm (4.4-10.8) H 10/08/18 06:32 RBC 4.77 m/cumm (4.50-6.00) 10/08/18 06:32 Hgb 14.5 g/dL (13.5-17.5) 10/08/18 06:32 Hct 42.8 % (40.0-50.0) 10/08/18 06:32 MCV 89.7 fL (80-95) 10/08/18 06:32 MCH 30.4 pg (27.0-33.0) 10/08/18 06:32 MCHC 33.9 g/dL (32.0-36.0) 10/08/18 06:32 RDW 13.1 % (11.8-14.1) 10/08/18 06:32 Plt Count 418 x1000/uL (130-400) H 10/08/18 06:32 MPV 10.8 fL (8.0-11.0) 10/08/18 06:32 Immature Gran % 0.2 10/08/18 06:32 Neutrophils % 89.4 10/08/18 06:32 Lymphocytes % 7.4 10/08/18 06:32 Monocytes % 2.8 10/08/18 06:32 Eosinophils % 0.1 10/08/18 06:32 Basophils % 0.1 10/08/18 06:32 Absolute Neutrophils 15.16 k/cumm (1.2-6.7) H 10/08/18 06:32 Absolute Lymphocytes 1.26 k/cumm (1.2-3.4) 10/08/18 06:32 Absolute Monocytes 0.47 k/cumm (0.11-0.7) 10/08/18 06:32 Absolute Eosinophils 0.02 k/cumm (0.0-0.7) 10/08/18 06:32 Absolute Basophils 0.02 k/cumm (0.0-0.2) 10/08/18 06:32 VBG pH 7.31 (7.32-7.43) L 10/06/18 07:41 VBG pCO2 55 mm/Hg (34-47) H 10/06/18 07:41 VBG pO2 23 mm/Hg (28-44) L 10/06/18 07:41 VBG HCO3 27 mmol/L (22-28) 10/06/18 07:41 VBG Total CO2 25 mmol/L (22-29) 10/06/18 07:41 VBG O2 Saturation 36 % (70-80) L 10/06/18 07:41 VBG Base Excess 1.1 mmol/L (-3-3) 10/06/18 07:41 Sodium 134 mmol/L (136-145) L 10/08/18 06:32 Potassium 4.6 mmol/L (3.5-5.1) 10/08/18 06:32 Chloride 100 mmol/L (98-107) 10/08/18 06:32 Carbon Dioxide 23.8 mmol/L (21.0-32.0) 10/08/18 06:32 Anion Gap 10.2 mmol/L (3-11) 10/08/18 06:32 BUN 25 mg/dL (7-18) H 10/08/18 06:32 Creatinine 1.01 mg/dL (0.70-1.30) 10/08/18 06:32 Estimated GFR/1.73 m2 >= 60.00 (mL/min/1.73m2) 10/08/18 06:32 Glucose 389 mg/dL (70-100) H 10/08/18 06:32 Hemoglobin A1c 10.5 % (4.5-6.2) H 10/06/18 16:05 Lactate 3.9 mmol/l (0.6-1.4) H 10/07/18 17:20 Uric Acid 4.0 mg/dL (3.5-7.2) 10/07/18 06:20 Calcium 8.5 mg/dL (8.5-10.1) 10/08/18 06:32 Magnesium 1.9 mg/dL (1.8-2.4) 10/08/18 06:32 Total Bilirubin 0.4 mg/dL (0.2-1.0) 10/06/18 07:41 AST 17 U/L (15-37) 10/06/18 07:41 ALT 35 U/L (12-78) 10/06/18 07:41 Alkaline Phosphatase 169 U/L (46-116) H 10/06/18 07:41 Troponin I < 0.02 ng/mL (0.00-0.06) 10/06/18 10:54 Total Protein 8.9 g/dL (6.4-8.2) H 10/06/18 07:41 Albumin 3.6 g/dL (3.4-5.0) 10/06/18 07:41 Vancomycin Trough 14.8 ug/mL (10.0-20.0) 10/08/18 15:10 CXR: Increased lung markings in the left base suspicious for developing pneumonia.
--- NOTE | 2018-10-08 19:15 | NUR.NOTE ---
Nursing Note: Report received from ANNA Orozco. The patient is currently in stable condition, IV site was leaking and has been discontinued. Patient is sitting up in bed, no needs at this time, the bed is in the low and locked position, side rails up x2, call light within reach.
[2018-10-08] MEDS: methylPREDNISolone SUCC 40 MG VIAL IVP (20:24)
[2018-10-09] VITALS (8 sets, daily range): BP systolic 116–148; BP diastolic 74–95; PULSE 68–98; RESP 18–24; TEMP 36.1–36.7; O2SAT 95–98
[2018-10-09] MEDS: Normal Saline 1,000 ML 150 ML IV ×3 (01:50→22:24)
[2018-10-09] MEDS: methylPREDNISolone SUCC 40 MG VIAL IVP ×3 (03:01→19:51)
[2018-10-09] MEDS: PIPERACILLIN/TAZO 3.375 GM in Normal Saline 50 ML IVPB ×3 (03:01→19:51)
[2018-10-09] MEDS: VANCOMYCIN 1,500 MG in Normal Saline 500 ML 333 MG IVPB ×2 (03:45→16:36)
[2018-10-09] MEDS: Albuterol/Ipratropium 3 ML UPD VIAL UPD ×3 (05:01→18:22)
[2018-10-09] MEDS: LIDOCAINE Patch Removal 1 EACH TP (05:03)
[2018-10-09 07:41] LABS: Abs Immature Grans 0.06 k/cumm (0.0-0.09); Absolute Lymphocyte Count 1.78 k/cumm (1.2-3.4); Basophils % 0.1; HCT 40.7 % (40.0-50.0); HGB 13.9 g/dL (13.5-17.5); Immature Grans % 0.4; Lymphocytes % 10.9; Mean Corp. HGB Concentration 34.2 g/dL (32.0-36.0); Mean Corpuscular Hemoglobin 30.6 pg (27.0-33.0); Mean Corpuscular Volume 89.6 fL (80-95); Mean Platelet Volume 10.7 fL (8.0-11.0); Monocytes % 5.9; Neutrophils % 82.7; Platelet Count 408 x1000/uL (130-400); RBC 4.54 m/cumm (4.50-6.00); RBC Distribution Width 12.8 % (11.8-14.1); White Blood Cell Count 16.33 k/cumm (4.4-10.8)
[2018-10-09 07:42] LABS: Absolute Basophil Count 0.02 k/cumm (0.0-0.2); Absolute Monocyte Count 0.96 k/cumm (0.11-0.7)
[2018-10-09 07:45] LABS: Anion Gap 10.9 mmol/L (3-11); BUN 20 mg/dL (7-18); CO2 23.1 mmol/L (21.0-32.0); CREATININE 1.09 mg/dL (0.70-1.30); Calcium 8.9 mg/dL (8.5-10.1); Chloride 100 mmol/L (98-107); Glucose 349 mg/dL (70-100); Magnesium 1.8 mg/dL (1.8-2.4); Potassium 4.4 mmol/L (3.5-5.1); Sodium 134 mmol/L (136-145)
[2018-10-09 08:18] LABS: *AMPHETAMINES SCREEN URINE Negative (Negative); *BARBITURATES SCREEN URINE Negative (Negative); *BENZODIAZEPINES SCREEN URINE Negative (Negative); Cannabinoids THC Negative (Negative); Cocaine Screen,Urine Negative (Negative); METHADONE URINE SCREEN Negative (Negative); OPIATES URINE SCREEN Negative (Negative)
[2018-10-09 08:21] LABS: Tricyclic Antidepressants Negative (Negative)
[2018-10-09] MEDS: Misoprostol 100 MCG TAB PO ×2 (08:33→19:51)
[2018-10-09] MEDS: Pravastatin 40 MG TAB PO (08:33)
[2018-10-09] MEDS: Magnesium Chloride 64 MG TABCR PO ×2 (08:33→19:51)
[2018-10-09] MEDS: Benzonatate 100 MG CAP PO ×3 (08:33→19:52)
[2018-10-09] MEDS: Losartan 50 MG TAB 100 MG PO (08:33)
[2018-10-09] MEDS: Baclofen 10 MG TAB 20 MG PO (08:33)
[2018-10-09] MEDS: Pantoprazole 40 MG TABCR PO (08:34)
[2018-10-09] MEDS: amLODIPine 10 MG TAB PO (08:34)
[2018-10-09] MEDS: Insulin Aspart 300 UNITS/3 ML PEN SC ×7 (08:34→22:31)
[2018-10-09] MEDS: Calcitonin-Salmon, Synthetic 3.7 ML BTL NS (08:35)
[2018-10-09] MEDS: traMADol 50 MG TAB PO ×2 (08:42→22:24)
[2018-10-09] MEDS: Budesonide/Formoterol 160/4.5 6 GM 60 PUFF INH IH ×2 (09:34→19:51)
[2018-10-09] MEDS: Insulin Glargine 300 UNITS/3 ML PEN 10 UNITS SC (11:33)
[2018-10-09] MEDS: Normal Saline Flush 10 ML SYR IVP ×2 (11:43→19:50)
--- NOTE | 2018-10-09 14:03 | PDOC.CMPRO ---
- If Service Date Differs Date of service: 10/09/18 Time of Service: 14:03 Care Management Progress Note S/O: Ervin is lying in bed this afternoon when this program writer visits. He is pleasant and receptive to discussion. Ervin appears to be on the phone during visit, however states that he will speak with CM. He continues to receive IVF, IV steroids, and IV antibiotics at this time. A: 52 y/o male admitted 10/06/18 for Pneumonia P: Ervin will return to the community with no anticipated services. He will f/u with PCP and plan of care as prescribed.
--- NOTE | 2018-10-09 14:09 | CMPROGNOTE_ITS ---
- If Service Date Differs Date of service: 10/09/18 Time of Service: 14:03 Care Management Progress Note S/O: Ervin is lying in bed this afternoon when this development writer visits. He is pleasant and receptive to discussion. Ervin appears to be on the phone during visit, however states that he will speak with CM. He continues to receive IVF, IV steroids, and IV antibiotics at this time. A: 52 y/o male admitted 10/06/18 for Pneumonia P: Ervin will return to the community with no anticipated services. He will f/u with PCP and plan of care as prescribed.
[2018-10-09] MEDS: Enoxaparin 40 MG/0.4 ML SYR SC (14:16)
[2018-10-09] MEDS: LEVOFLOXACIN 750 MG/150 ML BAG 100 MG IVPB (14:16)
[2018-10-09] MEDS: Lidocaine 5% Patch 1 PATCH TP (17:53)
--- NOTE | 2018-10-09 20:29 | W.PM.PROGNOT ---
Date of Service Date of service: 10/09/18 Time of Service: 16:30 Assessment and Plan (1) CAP (community acquired pneumonia): Current visit: Yes Status: Acute in setting of immunosuppression. I think he is better today. For now, continue same antibiotics (vancomycin, zosyn, levofloxacin), symbicort. Start to taper steroids. (2) Diabetes type 2, uncontrolled: Current visit: Yes Status: Acute Adjust basal bolus insulin due to steroid induced hyperglycemia. Uncontrolled. DM education consulted. (3) Hypertension: Current visit: Yes Status: Chronic Controlled. No change in tx. (4) GERD (gastroesophageal reflux disease): Current visit: Yes Status: Chronic Continue PPI (5) Ankylosing spondylitis: Current visit: Yes Status: Acute Hold home TNF alpha tam. (6) Discharge planning issues: Current visit: Yes Status: Acute Full code. (7) DVT prophylaxis: Current visit: Yes Status: Acute Lovenox Subjective Interval history since last seen: Mr Annika Walden says he does not know if he is any better. He states the cough is about the same, then he states it's better. Then he states he doesn't know. He complains of dizziness when coughing. Denies chest pain, nausea, vomiting. Complains of nausea last night. He does make me feel uncomfortable with inappropriate jokes/asking me out on a date. Exam Narrative Exam Narrative: General: Obese male, cough less harsh today, gets red when coughing HEENT: EOMI, pupils are pinpoint, MMM Heart: RRR, no m/r/g Lungs: wheezy in the L lung field - wheezing is quiet GI: abdomen is soft, nontender, nondistended Extremities: slight nonpitting edema in BLE's, no clubbing or cyanosis. Objective Objective Clinical Data: Abnormal lab results 10/09/18 10/09/18 Range/Units 06:52 06:52 WBC 16.33 H (4.4-10.8) k/cumm Plt Count 408 H (130-400) x1000/uL Absolute Neutrophils 13.50 H (1.2-6.7) k/cumm Absolute Monocytes 0.96 H (0.11-0.7) k/cumm Sodium 134 L (136-145) mmol/L BUN 20 H (7-18) mg/dL Glucose 349 H (70-100) mg/dL Vital Signs Temperature 36.7 C 10/09/18 19:43 Temperature Source Tympanic 10/09/18 19:43 Pulse 96 H 10/09/18 19:43 Pulse Rhythm Regular 10/09/18 08:28 Pulse 93 H 10/06/18 13:31 Respiratory Rate 19 10/09/18 19:43 Respiratory Effort 10/09/18 08:28 Respiratory Depth Normal 10/09/18 08:28 Respiratory Pattern Normal 10/09/18 08:28 Blood Pressure 116/74 10/09/18 19:43 Blood Pressure Mean 95 10/06/18 13:31 Blood Pressure Position Sitting 10/06/18 07:20 Pulse Oximetry 95 10/09/18 19:43 Oxygen Delivery Method Room Air 10/09/18 19:43 Oxygen Flow Rate 0 10/09/18 19:43 Pain Level 8 10/09/18 11:32 Intake & Output 10/08/18 10/09/18 10/09/18 23:59 11:59 23:59 Intake Total 2352.5 / 4522.5 2427.5 / 4814.783 2387.283 / 4814.783 Output Total 3600 / 4950 3150 / 6500 3350 / 6500 Balance -1247.5 / -427.5 -722.5 / -1685.217 -962.717 / -1685.217 Intake: IV 1872.5 / 3422.5 2427.5 / 4094.783 1667.283 / 4094.783 Oral 480 / 1100 720 / 720 Output: Urine 3600 / 4950 3150 / 6500 3350 / 6500 Other: Urine Color Pale Yellow Pale Yellow Urine Appearance Clear Clear Clear Urine Odor Normal Normal Comment Multiple voids throughout the day. Stool Size Moderate Stool Characteristics Soft Brown Voiding Methods Urinal Urinal Toilet Urinal Laboratory Results WBC 16.33 k/cumm (4.4-10.8) H 10/09/18 06:52 RBC 4.54 m/cumm (4.50-6.00) 10/09/18 06:52 Hgb 13.9 g/dL (13.5-17.5) 10/09/18 06:52 Hct 40.7 % (40.0-50.0) 10/09/18 06:52 MCV 89.6 fL (80-95) 10/09/18 06:52 MCH 30.6 pg (27.0-33.0) 10/09/18 06:52 MCHC 34.2 g/dL (32.0-36.0) 10/09/18 06:52 RDW 12.8 % (11.8-14.1) 10/09/18 06:52 Plt Count 408 x1000/uL (130-400) H 10/09/18 06:52 MPV 10.7 fL (8.0-11.0) 10/09/18 06:52 Immature Gran % 0.4 10/09/18 06:52 Neutrophils % 82.7 10/09/18 06:52 Lymphocytes % 10.9 10/09/18 06:52 Monocytes % 5.9 10/09/18 06:52 Eosinophils % 0.0 10/09/18 06:52 Basophils % 0.1 10/09/18 06:52 Absolute Neutrophils 13.50 k/cumm (1.2-6.7) H 10/09/18 06:52 Absolute Lymphocytes 1.78 k/cumm (1.2-3.4) 10/09/18 06:52 Absolute Monocytes 0.96 k/cumm (0.11-0.7) H 10/09/18 06:52 Absolute Eosinophils 0.00 k/cumm (0.0-0.7) 10/09/18 06:52 Absolute Basophils 0.02 k/cumm (0.0-0.2) 10/09/18 06:52 VBG pH 7.31 (7.32-7.43) L 10/06/18 07:41 VBG pCO2 55 mm/Hg (34-47) H 10/06/18 07:41 VBG pO2 23 mm/Hg (28-44) L 10/06/18 07:41 VBG HCO3 27 mmol/L (22-28) 10/06/18 07:41 VBG Total CO2 25 mmol/L (22-29) 10/06/18 07:41 VBG O2 Saturation 36 % (70-80) L 10/06/18 07:41 VBG Base Excess 1.1 mmol/L (-3-3) 10/06/18 07:41 Sodium 134 mmol/L (136-145) L 10/09/18 06:52 Potassium 4.4 mmol/L (3.5-5.1) 10/09/18 06:52 Chloride 100 mmol/L (98-107) 10/09/18 06:52 Carbon Dioxide 23.1 mmol/L (21.0-32.0) 10/09/18 06:52 Anion Gap 10.9 mmol/L (3-11) 10/09/18 06:52 BUN 20 mg/dL (7-18) H 10/09/18 06:52 Creatinine 1.09 mg/dL (0.70-1.30) 10/09/18 06:52 Estimated GFR/1.73 m2 >= 60.00 (mL/min/1.73m2) 10/09/18 06:52 Glucose 349 mg/dL (70-100) H 10/09/18 06:52 Hemoglobin A1c 10.5 % (4.5-6.2) H 10/06/18 16:05 Lactate 3.9 mmol/l (0.6-1.4) H 10/07/18 17:20 Uric Acid 4.0 mg/dL (3.5-7.2) 10/07/18 06:20 Calcium 8.9 mg/dL (8.5-10.1) 10/09/18 06:52 Magnesium 1.8 mg/dL (1.8-2.4) 10/09/18 06:52 Total Bilirubin 0.4 mg/dL (0.2-1.0) 10/06/18 07:41 AST 17 U/L (15-37) 10/06/18 07:41 ALT 35 U/L (12-78) 10/06/18 07:41 Alkaline Phosphatase 169 U/L (46-116) H 10/06/18 07:41 Troponin I < 0.02 ng/mL (0.00-0.06) 10/06/18 10:54 Total Protein 8.9 g/dL (6.4-8.2) H 10/06/18 07:41 Albumin 3.6 g/dL (3.4-5.0) 10/06/18 07:41 Vancomycin Trough 14.8 ug/mL (10.0-20.0) 10/08/18 15:10 Urine Opiates Screen Negative (Negative) 10/09/18 07:02 Urine Methadone Screen Negative (Negative) 10/09/18 07:02 Ur Barbiturates Screen Negative (Negative) 10/09/18 07:02 Ur Tricyclics Screen Negative (Negative) 10/09/18 07:02 Ur Amphetamines Screen Negative (Negative) 10/09/18 07:02 U Benzodiazepines Scrn Negative (Negative) 10/09/18 07:02 Urine Cocaine Screen Negative (Negative) 10/09/18 07:02 Ur THC Screen Negative (Negative) 10/09/18 07:02
[2018-10-09] MEDS: guaiFENesin/CODEINE PHOSPHATE 10 ML CUP 5 ML PO (22:30)
[2018-10-09] MEDS: Insulin Glargine 300 UNITS/3 ML PEN 25 UNITS SC (22:32)
[2018-10-10] VITALS: BP 154/90; PULSE 83; RESP 18; TEMP 36.1; O2SAT 96
[2018-10-10] MEDS: Albuterol/Ipratropium 3 ML UPD VIAL UPD ×2 (00:07→05:34)
[2018-10-10 03:50] VITALS: BP 149/92; PULSE 82; RESP 18; TEMP 36.5; O2SAT 94
[2018-10-10] MEDS: PIPERACILLIN/TAZO 3.375 GM in Normal Saline 50 ML IVPB (04:02)
[2018-10-10] MEDS: Normal Saline Flush 10 ML SYR IVP ×2 (05:34→07:53)
[2018-10-10] MEDS: VANCOMYCIN 1,500 MG in Normal Saline 500 ML 333 MG IVPB (05:34)
[2018-10-10] MEDS: guaiFENesin/CODEINE PHOSPHATE 10 ML CUP 5 ML PO (05:35)
[2018-10-10 07:20] VITALS: BP 159/87; PULSE 87; RESP 16; TEMP 36.6; O2SAT 93
[2018-10-10] MEDS: LIDOCAINE Patch Removal 1 EACH TP (07:31)
[2018-10-10 07:40] LABS: Abs Immature Grans 0.07 k/cumm (0.0-0.09); Immature Grans % 0.4; Lymphocytes % 13.1; Mean Corp. HGB Concentration 34.1 g/dL (32.0-36.0); Mean Corpuscular Hemoglobin 30.6 pg (27.0-33.0); Mean Corpuscular Volume 89.5 fL (80-95); Mean Platelet Volume 10.4 fL (8.0-11.0); Monocytes % 7.4; Neutrophils % 79.1; Platelet Count 390 x1000/uL (130-400); RBC 4.58 m/cumm (4.50-6.00); RBC Distribution Width 12.8 % (11.8-14.1); White Blood Cell Count 17.57 k/cumm (4.4-10.8)
[2018-10-10 07:47] LABS: Anion Gap 11.8 mmol/L (3-11); BUN 21 mg/dL (7-18); CO2 24.2 mmol/L (21.0-32.0); CREATININE 1.34 mg/dL (0.70-1.30); Calcium 9.2 mg/dL (8.5-10.1); Chloride 98 mmol/L (98-107); Estimated GFR 56.42 (mL/min/1.73m2); Glucose 294 mg/dL (70-100); Magnesium 1.5 mg/dL (1.8-2.4); Sodium 134 mmol/L (136-145)
[2018-10-10] MEDS: methylPREDNISolone SUCC 40 MG VIAL IVP (07:54)
[2018-10-10] MEDS: Pantoprazole 40 MG TABCR PO (07:54)
[2018-10-10] MEDS: Misoprostol 100 MCG TAB PO (07:54)
[2018-10-10] MEDS: amLODIPine 10 MG TAB PO (07:54)
[2018-10-10] MEDS: Magnesium Chloride 64 MG TABCR PO (07:54)
[2018-10-10] MEDS: Losartan 50 MG TAB 100 MG PO (07:54)
[2018-10-10] MEDS: Pravastatin 40 MG TAB PO (07:54)
[2018-10-10] MEDS: Benzonatate 100 MG CAP PO (07:55)
[2018-10-10] MEDS: Baclofen 10 MG TAB 20 MG PO (07:55)
[2018-10-10] MEDS: Insulin Aspart 300 UNITS/3 ML PEN SC ×4 (08:25→12:55)
[2018-10-10] MEDS: Calcitonin-Salmon, Synthetic 3.7 ML BTL NS (08:26)
[2018-10-10] MEDS: Normal Saline 1,000 ML 150 ML IV (09:17)
[2018-10-10] MEDS: Budesonide/Formoterol 160/4.5 6 GM 60 PUFF INH IH (09:23)
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
--- NOTE | 2018-10-10 13:53 | DM INPTCON_ITS ---
Date of service: 10/10/18 Time of Service: 13:37 Diabetes Inpatient Consult DESCRIPTION/ASSESSMENT: Appreciate diabetes consult for 52 year old Mr. Franco who is hospitalized iwth Pneumonia. A1c 10.5 BMI 40 Blood sugars mostly 300s down in the 200s yesterday. He now receives 35u basal insulin in split dose; 5 units Novolog for food plus moderate insulin correction. He eats 50-75grams carbohydrate per meal. Methylprednisolone was at 40u twice daily and at this writing it appears to be discontinued. Blood sugars today 251-308. Attempted to visit Mr. Franco 10/08/18 but he was unwilling to disengage from his computer to have a meaningful conversation. He does acknowledge blood sugars are not at goal. It appears his blood sugars were not at goal prior to admission and steroid introduction based on A1c. INTERVENTION: Mr. Franco has had increases in his insulin dosing which does not appear to be getting him close to his glycemic goal. Attempted to discuss his understanding of lifestyle related to diabetes managem ent, however he was unwilling to discuss this. It would appear he would need additional medication to manage his diabetes upon discharge. Unable to assess his interest or aptitude for this. PLAN: Will attempt follow up visit again prior to discharge. Time Spent in Nutritional Counseling and Treatment: 5 minutes face to face inpatient
--- NOTE | 2018-10-10 14:57 | PDOC.CMDIS ---
- If Service Date Differs Date of service: 10/10/18 Time of Service: 14:57 LACE Index Scoring Tool - Questions: Length of Stay (in days): 4 - 6 Acuity (Admit via E.D.?): Yes E.D. Visits: 3 - Answers: Total Score: 10 Risk of Readmission: High Risk Care Management Discharge Reason for Hospitalization: Pneumonia Discharge Plan: Ervin will return home today with no services. He will be going to economic services in regards to housing. EAMON was notified after Ervin had departed that he will require new insulin, and that he does not have a glucometer. CM attempted to reach Ervin and left a VM for him. CM also attempted to outreach to his PCP Juan Devries, however message machine stated that the mailbox was full. Patient/Family Education Needs: Review DC instructions, any limitations, and discuss 'Ask Me Three'
--- NOTE | 2018-10-10 18:13 | W.PM.DS.N ---
Date of service: 10/10/18 Time of Service: 18:13 DS: Diagnosis Discharge Diagnosis (1) CAP (community acquired pneumonia): Status: Acute (2) Diabetes type 2, uncontrolled: Status: Acute (3) Hypertension: Status: Chronic (4) GERD (gastroesophageal reflux disease): Status: Chronic (5) Ankylosing spondylitis: Status: Acute Discharge Plan Disposition Patient Disposition: HOME Condition: Improving Discharge Details Reason For Visit: PNEUMONIA Admit Date/Time: 10/06/18 13:17 Admit Provider: Felicitas Mancini Attending Provider: Felicitas Mancini Primary Care Provider: TOSHIA SULLIVAN [facility] Course Hospital Course: This is a 52-year-old male with a past medical history of ankylosing spondylitis, cholesterol, chronic unremitting cough for the last 2-3 months which is been unresponsive to steroids, antibiotics, and inhaler. Patient symptoms have been on improve, and physical exam today is relatively benign. He has had a thorough workup on his previous visits with a negative CT angiogram, benign laboratory workups, negative cardiac workups. His lactate was up, 4.1, came down to 3.6. Given his clinical presentation, afebrile, not tachycardic or tachpenic and not hypotensive likely due to medications or diabetes. His lungs are clear diminished with a few scattered wheezes and he did not requiring oxygen. He is 94% on RA. His glucose has been in 400's so he was started on lantus 10 mg, low carb heart healthy diet. A1c = 10.5% He was treated with triple antibiotics due to immunosuppression, Vanco, Levaquin, Zosyn. His clinical course was quite uneventful. He remained in good spirits and spent an enormous amount of time trading stocks on his computer. Home Meds and New Rx's Prescriptions: New Lantus Solostar U-100 Insulin 100 unit/mL (3 mL) Insulin Pen 25 unit subcut HS Qty: 15 RF: 3 magnesium chloride [Mag 64] 64 mg Tablet,Delayed Release (Dr/Ec) 64 mg PO BID Qty: 60 RF: 3 Continued pravastatin 40 MG tablet 40 mg PO DAILY RF: 0 baclofen 20 MG tablet 1 tab PO DAILY RF: 0 amlodipine 10 MG tablet 1 tab PO DAILY RF: 0 misoprostol [Cytotec] 200 MCG tablet 1 cap PO BID RF: 0 dextroamphetamine-amphetamine 30 MG capsule,extended release 24hr 30 mg PO DAILY RF: 0 losartan 100 MG tablet 1 tab PO DAILY RF: 0 Miacalcin 200 UNITS/ML solution 1 spray Intranasal DAILY RF: 0 metformin 500 MG tablet extended release 24hr 1 tab PO DAILY RF: 0 Simponi 50 MG/0.5 ML syringe 0.5 ml PO RF: 0 albuterol sulfate 90 mcg/actuation HFA aerosol inhaler 2 puff IH Q6H PRN (Reason: shortness of breath or wheezing) Qty: 6.7 RF: 0 lidocaine [Lidoderm] 1 PATCH patch 1 patch Topical Q24H Qty: 4 RF: 0 Discontinued levofloxacin 750 mg tablet 750 mg PO DAILY Qty: 4 RF: 0 Discharge Instructions Instructions: Pneumonia (DC) Stand Alone Forms: Nursing Discharge Form Referrals: TOSHIA SULLIVAN [Primary Care Provider] - 10/14/18 4:30 pm Activity:: Activity as Tolerated Equipment/Supplies:: No Equipment Needed Diet:: Carb Counting Discharge Orders Discharge Orders: Discharge Order (Routine); Ordered 10/10/18 Ordered By: Andrea Ku Discharge Data Discharge Date/Time-TO BE ENTERED AT DEPARTURE: 10/10/18 14:21 DS: Summary Time Spent with Patient Greater than 30 minutes Exam Narrative Exam Narrative: Patient was affable and interactive. He was working with financial material on his computer and somewhat difficult to distract. He displayed no respiratory difficulty but did have some very hard deep coughing during the exam. He would cough deeply and wheeze at the end of expiration but there was no stridor, he seemed to be in control of when he coughed. His lung exam sounded completely clear on the right and left other than some end expiratory wheezing. DS: Data Vitals/I&O Vitals and I&O: Vital Signs Temperature 36.6 C 10/10/18 07:20 Temperature Source Tympanic 10/10/18 07:20 Pulse 87 10/10/18 07:20 Pulse Rhythm Regular 10/10/18 08:48 Pulse 93 H 10/06/18 13:31 Respiratory Rate 16 10/10/18 07:20 Respiratory Effort Non-Labored 10/10/18 08:48 Respiratory Depth Normal 10/10/18 08:48 Respiratory Pattern Normal 10/10/18 08:48 Blood Pressure 159/87 H 10/10/18 07:20 Blood Pressure Mean 95 10/06/18 13:31 Blood Pressure Position Sitting 10/06/18 07:20 Pulse Oximetry 93 L 10/10/18 07:20 Oxygen Delivery Method Room Air 10/10/18 07:20 Oxygen Flow Rate 0 10/10/18 07:20 Pain Level 8 10/10/18 07:20 Comment 10/10/18 07:20 Intake & Output 10/09/18 10/10/18 10/10/18 23:59 11:59 23:59 Intake Total 2397.283 / 4824.783 2930 / 3637.5 707.5 / 3637.5 Output Total 3850 / 7000 4050 / 4050 Balance -1452.717 / -2175.217 -1120 / -412.5 707.5 / -412.5 Intake: IV 1677.283 / 4104.783 1570 / 2277.5 707.5 / 2277.5 Oral 720 / 720 1360 / 1360 Output: Urine 3850 / 7000 4050 / 4050 Other: Urine Color Pale Pale Urine Appearance Clear Clear Urine Odor Normal None Comment Multiple voids throughout the day. Voiding Methods Urinal Urinal Labs on day of discharge: Labs from last 24 hours 10/10/18 10/10/18 07:15 07:15 WBC 17.57 H RBC 4.58 Hgb 14.0 Hct 41.0 MCV 89.5 MCH 30.6 MCHC 34.1 RDW 12.8 Plt Count 390 MPV 10.4 Immature Gran % 0.4 Neutrophils % 79.1 Lymphocytes % 13.1 Monocytes % 7.4 Eosinophils % 0.0 Basophils % 0.0 Absolute Neutrophils 13.90 H Absolute Lymphocytes 2.30 Absolute Monocytes 1.30 H Absolute Eosinophils 0.00 Absolute Basophils 0.00 Sodium 134 L Potassium 4.0 Chloride 98 Carbon Dioxide 24.2 Anion Gap 11.8 H BUN 21 H Creatinine 1.34 H Estimated GFR/1.73 m2 56.42 Glucose 294 H Calcium 9.2 Magnesium 1.5 L Preliminary micro results at discharge 10/06/18 12:24 Blood Culture - Preliminary Blood NO GROWTH 96 HOURS 10/06/18 12:14 Blood Culture - Preliminary Blood NO GROWTH 96 HOURS [facility] Medical History Cough (Acute) Neuropathy (Acute) Surgical History H/O splenectomy (Acute) Family History Mother Diabetes Heart disease Father Heart disease Stroke Social History Smoking and Tabacco status: Never
== END 2018-10-10 14:21 | disposition home or self-care (01) | DRG 195 ==
LOC: ER 13:41 → MS 10-07 09:11
PROVIDERS: Internal Medicine; Student in an Organized Health Care Education/Training Program; Admitting Provider Nurse Practitioner Family; Emergency Provider Student in an Organized Health Care Education/Training Program; PCP Family Medicine; Visit Provider Family Medicine
DX: J18.9 Pneumonia, unspecified organism (principal); E11.65 Type 2 diabetes mellitus with hyperglycemia; I10 Essential (primary) hypertension; K21.9 Gastro-esophageal reflux disease without esophagitis; M45.9 Ankylosing spondylitis of unspecified sites in spine; Z79.899 Other long term (current) drug therapy; T38.3X6A Underdosing of insulin and oral hypoglycemic [antidiabetic] drugs, initial encounter; E78.5 Hyperlipidemia, unspecified; G62.9 Polyneuropathy, unspecified; T38.0X5A Adverse effect of glucocorticoids and synthetic analogues, initial encounter
CPT/HCPCS: 36410; 36415; 80048; 80053; 80307; 82805; 87040; 87449; 93005; 94640; 96361; 96365; 96366; 96368; 96375; 99223; 99232; 99233; 99239; 99285; J1650; 71045; 71046; 80202; 83036; 83605; 83735; 84484; 84550; 85025; 93010; J1885; J1956; J2543; J2930; J3490; J7512; J7620

== ENCOUNTER 2019-06-16 15:29 | Emergency (ER) | payer MEDICARE, MEDICAID, SELFPAY ==
[2019-06-16 15:37] VITALS: BP 120/67; PULSE 91; RESP 16; TEMP 36.4; O2SAT 98
--- NOTE | 2019-06-16 15:50 | ED.GENADUL_ITS ---
Discharge Plan Disposition Patient Disposition: HOME Condition: Improving Discharge Details Chief Complaint: ThroatFB Clinical Impression: Esophageal abrasion Primary Care Provider: Juan Devries ED Provider: Shree Humphrey Home Meds and New Rx's Prescriptions: Continued pravastatin 40 MG tablet 40 mg PO DAILY RF: 0 baclofen 20 MG tablet 1 tab PO DAILY RF: 0 amlodipine 10 MG tablet 1 tab PO DAILY RF: 0 misoprostol [Cytotec] 200 MCG tablet 1 cap PO BID RF: 0 dextroamphetamine-amphetamine 30 MG capsule,extended release 24hr 30 mg PO DAILY RF: 0 losartan 100 MG tablet 1 tab PO DAILY RF: 0 Miacalcin 200 UNITS/ML solution 1 spray Intranasal DAILY RF: 0 metformin 500 MG tablet extended release 24hr 1 tab PO DAILY RF: 0 Simponi 50 MG/0.5 ML syringe 0.5 ml PO RF: 0 albuterol sulfate 90 mcg/actuation HFA aerosol inhaler 2 puff IH Q6H PRN (Reason: shortness of breath or wheezing) Qty: 6.7 RF: 0 lidocaine [Lidoderm] 1 PATCH patch 1 patch Topical Q24H Qty: 4 RF: 0 magnesium chloride [Mag 64] 64 mg Tablet,Delayed Release (Dr/Ec) 64 mg PO BID Qty: 60 RF: 3 Lantus Solostar U-100 Insulin 100 unit/mL (3 mL) insulin pen 50 unit subcut HS RF: 0 Discharge Instructions Instructions: Esophageal Foreign Body (ED) Additional Instructions: Return for drooling, difficulty breathing, recurrent esophageal foreign bbody or any other concern. Continue regular medications. Gargle salt water for comfort. [place] fluids. Slowly progress a soft diet. Medical Decision Making 53yom with lettuce veggie burger stuck in L throat that he removed, now with ongoing FB sensation, no drooling or choking. Given and tolerated GI cocktail with improvement. Consistent with esophageal irritation, but no obstruction. Cautioned on home management and return indications to ED. HPI General Mode of arrival: ambulatory . Date/Time Provider Initiated Documentation: 06/16/19 15:42 . Limitations to Documentation: no limitations . Information obtained by: patient . History of Present Illness 53 year old M presents to the emergency department with the chief complaint of L throat pain after lettuce strip stuck, described as moderate, Quality is described as dull and constant, and is localized to the mouth and left. Patient reports no radiation. Patient started experiencing this minute(s) and it has been constant. No relieving factors improve symptom(s), No exacerbating factors reported . Patient notes denies cough, loss of appetite, nausea/vomiting and shortness of breath. Patient did receive the following treatments prior to arrival, none Related Data Home Medications Medication Instructions Recorded Confirmed Miacalcin 1 spray INTRANASAL DAILY 01/31/16 06/16/19 Simponi 0.5 ml PO 01/31/16 amlodipine 1 tab PO DAILY 01/31/16 06/16/19 baclofen 1 tab PO DAILY 01/31/16 06/16/19 dextroamphetamine-amphetamine 30 mg PO DAILY 01/31/16 06/16/19 losartan 1 tab PO DAILY 01/31/16 06/16/19 metformin 1 tab PO DAILY 01/31/16 06/16/19 misoprostol [Cytotec] 1 cap PO BID 01/31/16 06/16/19 pravastatin 40 mg PO DAILY 01/31/16 06/16/19 lidocaine [Lidoderm] 1 patch TOPICAL Q24H #4 patch 06/16/18 06/16/19 albuterol sulfate 2 puff IH Q6H PRN #6.7 gm 07/04/18 06/16/19 magnesium chloride [Mag 64] 64 mg PO BID #60 tab 10/10/18 06/16/19 Lantus Solostar U-100 Insulin 50 unit SUBCUT HS 06/16/19 06/16/19 Previous Rx's Medication Instructions Recorded lidocaine [Lidoderm] 1 patch TOPICAL Q24H #4 patch 06/16/18 albuterol sulfate 2 puff IH Q6H PRN #6.7 gm 07/04/18 magnesium chloride [Mag 64] 64 mg PO BID #60 tab 10/10/18 Allergies Allergy/AdvReac Type Severity Reaction Status Date / Time No Known Allergies Allergy Unverified 06/16/19 15:40 General Stated Complaint: ThroatFB SIHNE: 4 Review of Systems Narrative: removed FB. now breathing normal and swallowing PFSH Medical History Cough (Acute) Neuropathy (Acute) Family History Mother , at age 46 Diabetes Heart disease Father , Age 73 Heart disease Stroke Social History Smoking/Tobacco Use Status: Never Drug use: Never Do you feel safe in your relationship?: Yes Exam Narrative Exam Narrative: GEN: awake, alert, oriented 3. Pleasant, well groomed, interactive. HEAD: Normocephalic, atraumatic ENT: Mucous membranes moist, oropharynx unremarkable, External ear exam unremarkable EYES: PERRL, EOMI NECK: Full ROM, no ALEKSANDER, no menigismus CHEST/RESP: Nontender, clear to auscultation bilateral, no wheeze/rhonchi/rales CARDIOVASCULAR: RRR, no murmur, rub [place]. 2+ Rad pulse bilateral ABDOMEN: Soft, nontender, no mass. +Bowel sounds EXT: Full ROM, no edema, no rash Neuro: Grossly normal neurologic exam, conversant, interactive. Psych: Speech fluent, thoughts congruent, affect normal Course Vital Signs Vital signs: Vital Signs Temperature 36.4 C L 06/16/19 15:37 Pulse 91 H 06/16/19 15:37 Respiratory Rate 16 06/16/19 15:37 Blood Pressure 120/67 06/16/19 15:37 Pulse Oximetry 98 06/16/19 15:37 Temperature 36.4 C L 06/16/19 15:37 Temperature Source Skin 06/16/19 15:37 Pulse 91 H 06/16/19 15:37 Respiratory Rate 16 06/16/19 15:37 Respiratory Effort Non-Labored 06/16/19 15:42 Respiratory Pattern Normal 06/16/19 15:42 Blood Pressure 120/67 06/16/19 15:37 Blood Pressure Position Sitting 06/16/19 15:37 Pulse Oximetry 98 06/16/19 15:37 Oxygen Delivery Method Room Air 06/16/19 15:37 Oxygen Flow Rate 0 06/16/19 15:37 Pain Level 8 06/16/19 15:37
--- NOTE | 2019-06-16 15:59 | NUR.NOTE ---
patient medicated per MD order Nursing Note:
== END 2019-06-16 16:00 | disposition home or self-care (01) ==
LOC: ER 16:05
PROVIDERS: Emergency Provider Emergency Medicine; PCP Family Medicine
DX: T18.128A Food in esophagus causing other injury, initial encounter (principal)
CPT/HCPCS: 99282

== ENCOUNTER 2021-02-06 16:11 | Emergency (ER) | payer MEDICARE, MEDICAID, SELFPAY ==
[2021-02-06 16:58] VITALS: BP 111/69; PULSE 96; TEMP 36.6; O2SAT 91
[2021-02-06 17:24] VITALS: RESP 18
--- NOTE | 2021-02-06 17:24 | ED.GENADUL_ITS ---
Discharge Plan Disposition Patient Disposition: HOME Condition: Improving Discharge Details Clinical Impression: Bilateral leg edema Primary Care Provider: Juan Devries ED Provider: Shree Humphrey Home Meds and New Rx's Prescriptions: Continued pravastatin 40 MG tablet 40 mg PO DAILY RF: 0 baclofen 20 MG tablet 1 tab PO DAILY RF: 0 amlodipine 10 MG tablet 1 tab PO DAILY RF: 0 misoprostol [Cytotec] 200 MCG tablet 1 cap PO BID RF: 0 dextroamphetamine-amphetamine 30 MG capsule,extended release 24hr 30 mg PO DAILY RF: 0 losartan 100 MG tablet 1 tab PO DAILY RF: 0 Miacalcin 200 UNITS/ML solution 1 spray Intranasal DAILY RF: 0 metformin 500 MG tablet extended release 24hr 1 tab PO DAILY RF: 0 Simponi 50 MG/0.5 ML syringe 0.5 ml PO RF: 0 albuterol sulfate 90 mcg/actuation HFA aerosol inhaler 2 puff IH Q6H PRN (Reason: shortness of breath or wheezing) Qty: 6.7 RF: 0 lidocaine [Lidoderm] 1 PATCH patch 1 patch Topical Q24H Qty: 4 RF: 0 magnesium chloride [Mag 64] 64 mg Tablet,Delayed Release (Dr/Ec) 64 mg PO BID Qty: 60 RF: 3 Lantus Solostar U-100 Insulin 100 unit/mL (3 mL) insulin pen 50 unit subcut HS RF: 0 Discharge Instructions Additional Instructions: The outpatient radiology department will call you with an appointment time for study of the lower extremity tomorrow morning. As we discussed, you have declined work-up including blood work and EKG today. Return to the ER for any acute concerns in the interim. Please follow-up for your leg ultrasound tomorrow as planned. Medical Decision Making This is a 55-year-old male presents to the ER with complaint of 2 to 3 weeks of gradual onset lower extremity edema. States it has not been bothering him, has not had chest pain or shortness of breath, no fever or other illness. States he is here today because people told him he should get it checked out. The patient arrives with normal pulse and blood pressure. He is interactive. After my exam, patient stated he no longer wished to wait for results or have diagnostic studies performed. I encouraged him that we pursue some screening blood work, EKG and lower extremity ultrasound. He asked that I order outpatient ultrasound for tomorrow which I do feel is reasonable as we will have him come back to the ER for recheck following the study. HPI General Mode of arrival: ambulatory . Date/Time Provider Initiated Documentation: 02/06/21 16:47 . Limitations to Documentation: no limitations . Information obtained by: patient . History of Present Illness 55 year old M presents to the emergency department with the chief complaint of Bilateral foot swelling over weeks time, described as moderate, Quality is described as dull, and is localized to the left, right and lower extremity. Patient started experiencing this week(s) and it has been constant. No relieving factors improve symptom(s), No exacerbating factors reported . Patient notes denies chest pain, fever/chills, shortness of breath, syncope and weakness. Patient did receive the following treatments prior to arrival, none Related Data Home Medications Medication Instructions Recorded Confirmed Miacalcin 1 spray INTRANASAL DAILY 01/31/16 06/16/19 Simponi 0.5 ml PO 01/31/16 amlodipine 1 tab PO DAILY 01/31/16 06/16/19 baclofen 1 tab PO DAILY 01/31/16 06/16/19 dextroamphetamine-amphetamine 30 mg PO DAILY 01/31/16 06/16/19 losartan 1 tab PO DAILY 01/31/16 06/16/19 metformin 1 tab PO DAILY 01/31/16 06/16/19 misoprostol [Cytotec] 1 cap PO BID 01/31/16 06/16/19 pravastatin 40 mg PO DAILY 01/31/16 06/16/19 lidocaine [Lidoderm] 1 patch TOPICAL Q24H #4 patch 06/16/18 06/16/19 albuterol sulfate 2 puff IH Q6H PRN #6.7 gm 07/04/18 06/16/19 magnesium chloride [Mag 64] 64 mg PO BID #60 tab 10/10/18 06/16/19 Lantus Solostar U-100 Insulin 50 unit SUBCUT HS 06/16/19 06/16/19 Previous Rx's Medication Instructions Recorded lidocaine [Lidoderm] 1 patch TOPICAL Q24H #4 patch 06/16/18 albuterol sulfate 2 puff IH Q6H PRN #6.7 gm 07/04/18 magnesium chloride [Mag 64] 64 mg PO BID #60 tab 10/10/18 Allergies Allergy/AdvReac Type Severity Reaction Status Date / Time No Known Allergies Allergy Unverified 06/16/19 15:40 General Stated Complaint: GenMedical SHINE: 4 Review of Systems Narrative: No denies weight gain, no chest pain, no shortness of breath. [facility] Medical History (Updated 02/06/21 @ 17:30 by Shree Humphrey MD) Cough Neuropathy Surgical History H/O splenectomy Family History Mother , at age 46 Diabetes Heart disease Father , Age 73 Heart disease Stroke Social History Smoking/Tobacco Use Status: Never Smoking risk assessment performed?: Yes Drug use: Never Do you feel safe in your relationship?: Yes Exam Narrative Exam Narrative: GEN: awake, alert, oriented 3. Pleasant, well groomed, interactive. HEAD: Normocephalic, atraumatic EYES: PERRL, EOMI Chest clear to auscultation bilaterally, nontender, heart regular rate and rhythm without murmurs rubs or gallop. EXT: Full ROM, 2+ symmetric lower extremity edema of both pretibial regions and ankles. Capillary fill less than 2 seconds. No erythema. Neuro: Grossly normal neurologic exam, conversant, interactive. Psych: Speech fluent, thoughts congruent, affect normal Course Vital Signs Vital signs: Vital Signs Temperature 36.6 C 02/06/21 16:58 Pulse 96 H 02/06/21 16:58 Blood Pressure 111/69 02/06/21 16:58 Pulse Oximetry 91 L 02/06/21 16:58 Temperature 36.6 C 02/06/21 16:58 Temperature Source Oral 02/06/21 16:58 Pulse 96 H 02/06/21 16:58 Blood Pressure 111/69 02/06/21 16:58 Blood Pressure Position Sitting 02/06/21 16:58 Pulse Oximetry 91 L 02/06/21 16:58 Oxygen Delivery Method Room Air 02/06/21 16:58 Oxygen Flow Rate 0 02/06/21 16:58 Pain Level 0 02/06/21 16:58
== END 2021-02-06 17:34 | disposition home or self-care (01) ==
PROVIDERS: Emergency Provider Emergency Medicine; PCP Family Medicine
DX: R60.9 Edema, unspecified (principal)
CPT/HCPCS: 99281; 99282

== ENCOUNTER 2021-02-07 14:17 | Emergency (ER) | payer MEDICARE, MEDICAID, SELFPAY ==
[2021-02-07 14:21] VITALS: BP 143/75; PULSE 82; RESP 14; TEMP 36.8; O2SAT 99
--- NOTE | 2021-02-07 14:30 | RT.EKG_ITS ---
APPROVED REPORT Exam: Resting ECG Reason for Exam: leg swelling Patient Location: E HR:75 bpm ECG Measurements Heart Rate 75 AXIS NM 188 P 28 QRSd 88 QRS 51 QT 376 T 61 QTc 421 Conclusion Sinus rhythm...normal P axis, V-rate 60- 99 sinus rhythm at 75, normal axis, no acute ischemic changes, nondiagnostic EKG
--- NOTE | 2021-02-07 14:36 | W.ED.GENAD ---
Discharge Plan Disposition Patient Disposition: HOME Condition: Stable Discharge Details Clinical Impression: Bilateral lower extremity edema Primary Care Provider: None,None ED Provider: Ana Granger Home Meds and New Rx's Prescriptions: Continued pravastatin 40 MG tablet 40 mg PO DAILY RF: 0 baclofen 20 MG tablet 1 tab PO DAILY RF: 0 amlodipine 10 MG tablet 1 tab PO DAILY RF: 0 misoprostol [Cytotec] 200 MCG tablet 1 cap PO BID RF: 0 dextroamphetamine-amphetamine 30 MG capsule,extended release 24hr 30 mg PO DAILY RF: 0 losartan 100 MG tablet 1 tab PO DAILY RF: 0 Miacalcin 200 UNITS/ML solution 1 spray Intranasal DAILY RF: 0 metformin 500 MG tablet extended release 24hr 1 tab PO DAILY RF: 0 Simponi 50 MG/0.5 ML syringe 0.5 ml PO RF: 0 albuterol sulfate 90 mcg/actuation HFA aerosol inhaler 2 puff IH Q6H PRN (Reason: shortness of breath or wheezing) Qty: 6.7 RF: 0 lidocaine [Lidoderm] 1 PATCH patch 1 patch Topical Q24H Qty: 4 RF: 0 magnesium chloride [Mag 64] 64 mg Tablet,Delayed Release (Dr/Ec) 64 mg PO BID Qty: 60 RF: 3 Lantus Solostar U-100 Insulin 100 unit/mL (3 mL) insulin pen 50 unit subcut HS RF: 0 Discharge Instructions Instructions: Leg Edema (ED) Additional Instructions: Please return immediately to the emergency department if you develop any new or worsening symptoms, if your condition does not improve as expected, or if you become otherwise concerned. It is extremely important that you call soon as possible to make an appointment to be seen in follow-up for this visit by your primary care doctor. Referrals: Juan Devries [ NON-[facility] STAFF PHYSICIAN] - Discharge Data Discharge Date/Time-TO BE ENTERED AT DEPARTURE: 02/07/21 15:43 Medical Decision Making Ervin Franco is a 55-year-old man with history of ankylosing spondylitis, hypertension, GERD, hyperlipidemia, diabetes who presented to the emergency department to obtain result from lower extremity ultrasound that was ordered after ED visit for 2 to 3 weeks of lower extremity swelling yesterday. On exam patient is very well and nontoxic-appearing. He has 1+ pitting edema bilateral lower extremities without posterior calf tenderness or rash. Feet are warm and well-perfused. DP pulses intact and symmetric. Patient had declined screening EKG and screening labs at yesterday's visit, patient states this was because the ED was quite busy at that time. He states that he has now agreeable to having this test performed. Concern for DVT versus metabolic/lyte derangement versus venous stasis versus other. Doubt CHF. Exam/history at this time not consistent with sepsis, acute coronary syndrome, pulmonary embolism, acute aortic pathology or other acute arterial pathology. DVT study negative. Labs reviewed, non-diagnostic. Pt requesting to leave, plan for outpt f/u with PCP. I had a lengthy discussion with Patient regarding return to emergency department precautions, home care, and importance of outpatient follow-up. Pt verbalizes understanding of the plan and is amenable. Patient discharged to home with clear plan for outpatient follow-up. All questions were answered. Disposition decision was made weighing the risks and benefits of hospitalization versus outpatient treatment, the risk for further decompensation, and the patient's wishes. Medical Records Medical records reviewed: Yes I reviewed the patient's medical records. Imaging Data Radiologic Study: Attestation: I personally reviewed and interpreted this imaging study as follows: Radiologist's impression: Exam(s) US EXTREMITY VENOUS BI EXAM: US EXTREMITY VENOUS BI CLINICAL HISTORY: BILAT LOWER EXTREMITY EDEMA TECHNIQUE: Grayscale, color, and doppler imaging of the deep venous system of both lower extremities was performed. COMPARISON: No exams were available for comparison FINDINGS: There is no evidence of intraluminal thrombus and there is normal compression and augmentation demonstrated within the common femoral veins, femoral veins, and popliteal veins of both lower extremities. In the calves the interrogated veins also exhibit normal compression/ augmentation properties. The greater saphenous veins also appear patent as do the saphenofemoral junctions bilaterally.. Lab Data Lab results reviewed: Yes I reviewed the patient's lab results. Labs: Laboratory Tests Range/Units 02/07/21 02/07/21 14:50 14:50 WBC (4.4-10.8) 10^3/uL 9.05 RBC (4.36-5.78) 10^6/uL 4.56 Hgb (13.5-17.5) g/dL 14.4 Hct (40.0-50.0) % 42.0 MCV (80-95) fL 92.1 MCH (27.0-33.0) pg 31.6 MCHC (32.0-36.0) % 34.3 RDW (11.8-14.1) % 12.8 Plt Count (130-400) 10^3/uL 394 MPV (8.0-11.0) fL 9.4 Immature Gran % 0.1 Neutrophils % 46.2 Lymphocytes % 41.4 Monocytes % 9.0 Eosinophils % 2.9 Basophils % 0.4 Nucleated RBC % % 0 Absolute Neutrophils (1.2-6.7) 10^3/uL 4.18 Absolute Lymphocytes (1.2-3.4) 10^3/uL 3.75 H Absolute Monocytes (0.1-0.8) 10^3/uL 0.81 H Absolute Eosinophils (0.0-0.7) 10^3/uL 0.26 Absolute Basophils (0.0-0.2) 10^3/uL 0.04 Sodium (136-145) mmol/L 139 Potassium (3.5-5.1) mmol/L 4.3 Chloride (98-107) mmol/L 103 Carbon Dioxide (21.0-32.0) mmol/L 24.3 Anion Gap (3-11) mmol/L 11.7 H BUN (7-18) mg/dL 19 H Creatinine (0.70-1.30) mg/dL 1.3 Estimated GFR/1.73 m2 (mL/min/1.73m2) 57.75 Glucose (74-106) mg/dL 153 H Calcium (8.5-10.1) mg/dL 8.8 Total Bilirubin (0.2-1.0) mg/dL 0.5 AST (15-37) U/L 19 ALT (16-63) U/L 28 Alkaline Phosphatase (46-116) U/L 101 NT-Pro-B Natriuret Pep (<300) pg/mL 25 Total Protein (6.4-8.2) g/dL 7.5 Albumin (3.4-5.0) g/dL 3.7 TSH (0.36-3.74) uIU/mL 1.17 ECG Data Attestation: I personally reviewed and interpreted this ECG (s) as follows: Interpretation: EKG shows sinus rhythm at 75, normal axis, no acute ischemic changes, nondiagnostic EKG HPI General Mode of arrival: ambulatory. Date/Time Provider Initiated Documentation: 02/07/21 14:27. Limitations to Documentation: no limitations. Information obtained by: patient, RN notes reviewed and old records reviewed. HPI Narrative: Ervin Franco is a 55 y/o man with a history of ankylosing spondylitis, hypertension, GERD, hyperlipidemia, diabetes presenting to the emergency department with chief complaint leg swelling. Patient was seen here yesterday, and states that he returns for results of his ultrasound that was ordered from his ED visit yesterday. Patient reports that he has had leg swelling over the past 2 to 3 weeks. He states that he has had no other new symptoms or other symptoms that are concerning him. Per patient and record review, patient was seen here yesterday for 2 to 3 weeks of leg swelling, was encouraged to undergo EKG and screening labs, and patient declines. He did agree to return today for ultrasound, which was performed today prior to this visit. Patient states that he has had no new symptoms or changes since he was seen here yesterday. Patient reports that he has not had leg swelling in the past. Patient reports chronic neck and back pain, denies any other pain or any worsening/changes of his chronic neck and back pain. He denies fever, cough, shortness of breath, orthopnea, vomiting, diarrhea, numbness, weakness, rash. Patient reports that he feels otherwise well and in his usual state of health. Normal appetite. Related Data Home Medications Medication Instructions Recorded Confirmed Miacalcin 1 spray INTRANASAL DAILY 01/31/16 06/16/19 Simponi 0.5 ml PO 01/31/16 amlodipine 1 tab PO DAILY 01/31/16 06/16/19 baclofen 1 tab PO DAILY 01/31/16 06/16/19 dextroamphetamine-amphetamine 30 mg PO DAILY 01/31/16 06/16/19 losartan 1 tab PO DAILY 01/31/16 06/16/19 metformin 1 tab PO DAILY 01/31/16 06/16/19 misoprostol [Cytotec] 1 cap PO BID 01/31/16 06/16/19 pravastatin 40 mg PO DAILY 01/31/16 06/16/19 lidocaine [Lidoderm] 1 patch TOPICAL Q24H #4 patch 06/16/18 06/16/19 albuterol sulfate 2 puff IH Q6H PRN #6.7 gm 07/04/18 06/16/19 magnesium chloride [Mag 64] 64 mg PO BID #60 tab 10/10/18 06/16/19 Lantus Solostar U-100 Insulin 50 unit SUBCUT HS 06/16/19 06/16/19 Previous Rx's Medication Instructions Recorded lidocaine [Lidoderm] 1 patch TOPICAL Q24H #4 patch 06/16/18 albuterol sulfate 2 puff IH Q6H PRN #6.7 gm 07/04/18 magnesium chloride [Mag 64] 64 mg PO BID #60 tab 10/10/18 Allergies Allergy/AdvReac Type Severity Reaction Status Date / Time No Known Allergies Allergy Unverified 02/07/21 14:24 General Stated Complaint: Recheck SHINE: 5 Review of Systems Narrative: Constitutional: denies fevers Eyes: denies eye pain ENT: denies ear pain, dental pain, sore throat Cardiovascular: denies chest pain, reports bilateral lower extremity edema Respiratory: denies SOB, cough GI: denies abdominal pain, vomiting, diarrhea : denies flank pain MSK: denies arthralgias, myalgias, reports chronic unchanged neck and back pain Skin: denies rash Neuro: denies headaches, numbness, weakness PFSH Medical History (Updated 02/07/21 @ 15:40 by Ana Granger MD) Cough Neuropathy Surgical History H/O splenectomy Family History Mother , at age 46 Diabetes Heart disease Father , Age 73 Heart disease Stroke Social History Smoking/Tobacco Use Status: Never Smoking risk assessment performed?: Yes Drug use: Never Do you feel safe at home: Yes Do you feel safe in your relationship?: Yes Exam Narrative Exam Narrative: Constitutional: well and [id number], pleasant, conversing normally HENT: head atraumatic/normocephalic/normal inspection, mucous membranes moist Eyes: conjunctiva normal, sclera normal, pupils 3mm b/l Neck: no stridor, normal ROM, trachea midline Resp: normal work of breathing, speaking in full sentences Cardio: normal rate, normal rhythm Skin: warm, dry, normal color, no rash Neuro: alert, not altered, grossly non-focal, normal tone Ext: 1+ pitting edema bilateral lower extremities, DP pulses intact and symmetric, bilateral feet warm and well-perfused, no rash, no posterior calf tenderness to palpation Psych: normal mood, normal affect, normal behavior Course Vital Signs Vital signs: Vital Signs Temperature 36.8 C 02/07/21 14:21 Pulse 82 02/07/21 14:21 Respiratory Rate 14 02/07/21 14:21 Blood Pressure 143/75 H 02/07/21 14:21 Pulse Oximetry 99 02/07/21 14:21 Temperature 36.8 C 02/07/21 14:21 Temperature Source Skin 02/07/21 14:21 Pulse 82 02/07/21 14:21 Respiratory Rate 14 02/07/21 14:21 Respiratory Effort Non-Labored 02/07/21 14:27 Blood Pressure 143/75 H 02/07/21 14:21 Blood Pressure Position Sitting 02/07/21 14:21 Pulse Oximetry 99 02/07/21 14:21 Oxygen Delivery Method Room Air 02/07/21 14:21 Oxygen Flow Rate 0 02/07/21 14:21 Pain Level 0 02/07/21 14:21
[2021-02-07 14:59] LABS: Abs Immature Grans 0.01 10^3/uL (0.0-0.06); Absolute Basophil Count 0.04 10^3/uL (0.0-0.2); Absolute Eosinophil Count 0.26 10^3/uL (0.0-0.7); Absolute Lymphocyte Count 3.75 10^3/uL (1.2-3.4); Absolute Monocyte Count 0.81 10^3/uL (0.1-0.8); Absolute Neutrophil Count 4.18 10^3/uL (1.2-6.7); Basophils % 0.4; Eosinophils % 2.9; HGB 14.4 g/dL (13.5-17.5); Immature Grans % 0.1; Lymphocytes % 41.4; MCH 31.6 pg (27.0-33.0); MCHC 34.3 % (32.0-36.0); MCV 92.1 fL (80-95); MPV 9.4 fL (8.0-11.0); Neutrophils % 46.2; Nucleated RBC 0 %; Platelet Count 394 10^3/uL (130-400); RBC 4.56 10^6/uL (4.36-5.78); RDW 12.8 % (11.8-14.1); RDW-SD 42.9 fL; WBC 9.05 10^3/uL (4.4-10.8)
[2021-02-07 15:23] LABS: ALT 28 U/L (16-63); AST 19 U/L (15-37); Albumin 3.7 g/dL (3.4-5.0); Alkaline Phosphatase 101 U/L (46-116); Anion Gap 11.7 mmol/L (3-11); BUN 19 mg/dL (7-18); Bilirubin, Total 0.5 mg/dL (0.2-1.0); CO2 24.3 mmol/L (21.0-32.0); CREATININE 1.3 mg/dL (0.70-1.30); Calcium 8.8 mg/dL (8.5-10.1); Chloride 103 mmol/L (98-107); Estimated GFR 57.75 (mL/min/1.73m2); Glucose 153 mg/dL (74-106); NT-proBNP 25 pg/mL (<300); Potassium 4.3 mmol/L (3.5-5.1); Sodium 139 mmol/L (136-145); TSH (W/Ref FT4) 1.17 uIU/mL (0.36-3.74); Total Protein 7.5 g/dL (6.4-8.2)
== END 2021-02-07 15:43 | disposition home or self-care (01) ==
PROVIDERS: Emergency Provider Student in an Organized Health Care Education/Training Program
DX: R60.0 Localized edema (principal)
CPT/HCPCS: 36415; 80053; 93005; 99284; 83880; 84443; 85025; 93010; 93970

== ENCOUNTER 2021-02-07 14:20 | Outpatient (CLI) | payer MEDICARE, MEDICAID, SELFPAY ==
--- NOTE | 2021-02-07 | DI.US_ITS ---
Exam(s) US EXTREMITY VENOUS BI EXAM: US EXTREMITY VENOUS BI CLINICAL HISTORY: BILAT LOWER EXTREMITY EDEMA TECHNIQUE: Grayscale, color, and doppler imaging of the deep venous system of both lower extremities was performed. COMPARISON: No exams were available for comparison FINDINGS: There is no evidence of intraluminal thrombus and there is normal compression and augmentation demons trated within the common femoral veins, femoral veins, and popliteal veins of both lower extremities. In the calves the interrogated veins also exhibit normal compression/ augmentation properties. The greater saphenous veins also appear patent as do the saphenofemoral junctions bilaterally.. IMPRESSION: 1. No ultrasound evidence of DVT in either lower extremity. DATA REPOSITORY:
== END 2021-02-07 14:40 ==
PROVIDERS: PCP Family Medicine; Visit Provider Emergency Medicine
DX: R60.0 Localized edema (principal)
CPT/HCPCS: 93970

== ENCOUNTER 2021-03-21 20:49 | Outpatient (CLI) | payer MEDICARE, MEDICAID, SELFPAY ==
--- NOTE | 2021-03-21 | DI.RAD_ITS ---
Exam(s) XR HIP PELVIS ADULT BL EXAM: XR HIP PELVIS ADULT BL CLINICAL HISTORY: Back pain. Leg pain TECHNIQUE: 2D digital imaging was performed. COMPARISON: No exams were available for comparison FINDINGS: There are changes consistent with ankylosing spondylitis including ankylosis of both sacroiliac joint s and calcification with in the inter spinous ligament of this lumbar spine. Right hip appears unremarkable. There are 3 screws across healed left hip fracture femoral neck leve l. No prominent hip joint space narrowing. On the lateral view there is a healed fracture site at t he junction of proximal and mid thirds of the left femur. IMPRESSION: Ankylosing spondylitis findings, as described above. Three fixation screws in left hip. Healed fracture site in the femur. DATA REPOSITORY: RADIATION DOSE DELIVERED:
== END 2021-03-21 21:09 ==
PROVIDERS: Visit Provider Internal Medicine
DX: M45.8 Ankylosing spondylitis sacral and sacrococcygeal region (principal); Z87.81 Personal history of (healed) traumatic fracture
CPT/HCPCS: 73521

== ENCOUNTER 2023-01-16 12:42 | Emergency (ER) | payer MEDICARE, MEDICAID, SELFPAY ==
[2023-01-16 12:49] VITALS: BP 154/100; PULSE 100; RESP 18; TEMP 36.4; O2SAT 96
--- NOTE | 2023-01-16 13:41 | DI.RAD_ITS ---
Exam(s) XR TOE LT SECOND EXAM: XR TOE LT SECOND CLINICAL HISTORY: Toe pain spontaneous. TECHNIQUE: 2D digital imaging was performed. COMPARISON: No exams were available for comparison FINDINGS: 3 views No evidence of acute fracture nor dislocation. No abnormal soft tissue calcifications. No erosions. No radiopaque foreign body. Incidentally noted is hardware at the level of the ankle consisting of lateral fixation plate in distal fibula and screws in the medial malleolus. IMPRESSION: No significant osseous findings in the 2nd toe. DATA REPOSITORY: RADIATION DOSE DELIVERED:
[2023-01-16 15:33] VITALS: BP 125/88; PULSE 109; RESP 16; TEMP 36.3; O2SAT 94
--- NOTE | 2023-01-16 15:49 | ED.GENADUL_ITS ---
Discharge Plan Discharge Details Chief Complaint: Orthopedic Primary Care Provider: None,None ED Provider: Albaro Granger Home Meds and New Rx's Prescriptions: No Action pravastatin 40 MG tablet 40 mg PO DAILY baclofen 20 MG tablet 1 tab PO DAILY amlodipine 10 MG tablet 1 tab PO DAILY misoprostol [Cytotec] 200 MCG tablet 1 cap PO BID dextroamphetamine-amphetamine 30 MG capsule,extended release 24hr 30 mg PO DAILY losartan 100 MG tablet 1 tab PO DAILY Miacalcin 200 UNITS/ML solution 1 spray Intranasal DAILY metformin 500 MG tablet extended release 24hr 1 tab PO DAILY Simponi 50 MG/0.5 ML syringe 0.5 ml PO albuterol sulfate 90 mcg/actuation HFA aerosol inhaler 2 puff IH Q6H PRN (Reason: shortness of breath or wheezing) Qty: 6.7 0RF lidocaine [Lidoderm] 1 PATCH patch 1 patch Topical Q24H Qty: 4 0RF magnesium chloride [Mag 64] 64 mg Tablet,Delayed Release (Dr/Ec) 64 mg PO BID Qty: 60 3RF Lantus Solostar U-100 Insulin 100 unit/mL (3 mL) insulin pen 50 unit subcut Medical Decision Making 1552 -- 57-year-old male with history of diabetes here with left second toe pain. No signs of infection on exam. No known traumatic injury. X-ray of the left second toe was interpreted by radiology: No significant osseous findings in the second toe. Suspect early callus and irritation. I placed gauze between the second and third toe to pad the area. Fingerstick checked and patient's blood sugar is 255. He is tachycardic. Consider potential for DKA and will check labs and give IV fluid. HPI General Mode of arrival: ambulatory . Date/Time Provider Initiated Documentation: 01/16/23 13:40 . Limitations to Documentation: no limitations . Information obtained by: patient . HPI Narrative: 57-year-old male with multiple medical problems including diabetes, here with chief complaint of left second toe pain. Patient notes pain started spontaneously yesterday. He does not recall any trauma. He is concerned that his second toe may be rubbing against his third toe. Patient also notes that he did not take his insulin as prescribed today. He does states that he typically takes his insulin. History somewhat limited as patient is poor historian especially regarding medications. Related Data Home Medications Medication Instructions Recorded Confirmed amlodipine 10 mg tablet 1 tab PO DAILY 01/31/16 06/16/19 baclofen 20 mg tablet 1 tab PO DAILY 01/31/16 06/16/19 calcitonin (salmon) 200 unit/mL 1 spray intranasal DAILY 01/31/16 06/16/19 injection solution (Miacalcin) dextroamphetamine-amphetamine ER 30 mg PO DAILY 01/31/16 06/16/19 30 mg 24hr capsule,extend release golimumab 50 mg/0.5 mL 0.5 ml PO 01/31/16 subcutaneous syringe (Simponi) losartan 100 mg tablet 1 tab PO DAILY 01/31/16 06/16/19 metformin 500 mg tablet,extended 1 tab PO DAILY 01/31/16 06/16/19 release 24hr misoprostol 100 mcg tablet 1 cap PO BID 01/31/16 06/16/19 (Cytotec) pravastatin 40 mg tablet 40 mg PO DAILY 01/31/16 06/16/19 lidocaine 5 % topical patch 1 patch topical Q24H #4 patches 06/16/18 06/16/19 (Lidoderm) albuterol sulfate 90 mcg/actuation 2 puff inhalation Q6H PRN 07/04/18 06/16/19 aerosol inhaler shortness of breath or wheezing #6.7 grams magnesium chloride 64 mg 64 mg PO BID #60 tabs 10/10/18 06/16/19 (magnesium chloride) tablet,delayed release (Mag 64) insulin glargine 100 unit/mL (3 50 unit subcut HS 06/16/19 06/16/19 mL) subcutaneous pen (Lantus Solostar U-100 Insulin) Previous Rx's Medication Instructions Recorded lidocaine 5 % topical patch 1 patch topical Q24H #4 patches 06/16/18 (Lidoderm) albuterol sulfate 90 mcg/actuation 2 puff inhalation Q6H PRN 07/04/18 aerosol inhaler shortness of breath or wheezing #6.7 grams magnesium chloride 64 mg 64 mg PO BID #60 tabs 10/10/18 (magnesium chloride) tablet,delayed release (Mag 64) Allergies Allergy/AdvReac Type Severity Reaction Status Date / Time No Known Allergies Allergy Unverified 02/07/21 14:24 General Stated Complaint: Orthopedic SHINE: 4 Review of Systems Musculoskeletal Musculoskeletal: Reports as per HPI PFSH All Active Problems Bilateral leg edema (Acute) Bilateral lower extremity edema (Acute) Ankylosing spondylitis (Acute) Leukocytosis (Acute) H/O splenectomy (Acute) Hypertension (Chronic) H/O immunosuppressive therapy (Acute) GERD (gastroesophageal reflux disease) (Chronic) Hyperlipidemia (Acute) CAP (community acquired pneumonia) (Acute) Diabetes type 2, uncontrolled (Acute) Medical History Cough Neuropathy Family History Mother , at age 46 Diabetes Heart disease Father , Age 73 Heart disease Stroke Social History Smoking/Tobacco Use Status: Never Smoking risk assessment performed?: Yes Alcohol Intake: current Alcohol Intake frequency: a few times a week Alcohol type: beer Drug use: Occasionally Substance use type: marijuana Do you feel safe at home: Yes Do you feel safe in your relationship?: Yes Exam Const General: cooperative Orientation: alert and awake HENMT Mouth: mucous membranes dry Resp Effort & Inspection: normal respiratory effort, not labored and not tachypneic Auscultation: clear to auscultation bilaterally Cardio Rate: tachycardic Rhythm: regular rhythm GI Palpation: soft and nontender Skin Rashes: no rashes Neuro General: patient alert and patient awake Extrem Left lower extremity: foot (Questionable small callus lateral distal second toe, no erythema, no warmth) Details: normal capillary refill and toes with normal ROM; no unusual warmth Course Vital Signs Vital signs: Vital Signs Temperature 36.4 C L 01/16/23 12:49 Pulse 100 H 01/16/23 12:49 Respiratory Rate 18 01/16/23 12:49 Blood Pressure 154/100 H 01/16/23 12:49 Pulse Oximetry 96 01/16/23 12:49 Temperature 36.3 C L 01/16/23 15:33 Temperature Source Tympanic 01/16/23 15:33 Pulse 109 H 01/16/23 15:33 Respiratory Rate 16 01/16/23 15:33 Respiratory Effort Normal, Non-Labored 01/16/23 15:38 Blood Pressure 125/88 01/16/23 15:33 Blood Pressure Position Sitting 01/16/23 12:49 Pulse Oximetry 94 01/16/23 15:33 Oxygen Delivery Method Room Air 01/16/23 15:33 Oxygen Flow Rate 0 01/16/23 15:33
[2023-01-16] MEDS: Normal Saline 1,000 ML 1000 ML IV (16:00)
[2023-01-16 16:09] LABS: Abs Immature Grans 0.04 10^3/uL (0.0-0.06); Absolute Basophil Count 0.04 10^3/uL (0.0-0.2); Absolute Eosinophil Count 0.04 10^3/uL (0.0-0.7); Absolute Lymphocyte Count 4.32 10^3/uL (1.2-3.4); Absolute Monocyte Count 0.98 10^3/uL (0.1-0.8); Absolute Neutrophil Count 7.79 10^3/uL (1.2-6.7); Basophils % 0.3; Eosinophils % 0.3; HCT 43.6 % (40.0-50.0); HGB 15.1 g/dL (13.5-17.5); Immature Grans % 0.3; Lymphocytes % 32.7; MCH 31.7 pg (27.0-33.0); MCHC 34.6 % (32.0-36.0); MCV 91 fL (80-95); Monocytes % 7.4; Platelet Count 380 10^3/uL (130-400); RBC 4.77 10^6/uL (4.36-5.78); RDW 12.2 % (11.8-14.1); RDW-SD 40.9 fL; WBC 13.21 10^3/uL (4.4-10.8)
[2023-01-16 16:27] LABS: ALT 53 U/L (16-63); AST 19 U/L (15-37); Albumin 3.7 g/dL (3.4-5.0); Alkaline Phosphatase 109 U/L (46-116); Anion Gap 11.1 mmol/L (3-11); BUN 18 mg/dL (7-18); Bilirubin, Total 0.3 mg/dL (0.2-1.0); CO2 24.9 mmol/L (21.0-32.0); CREATININE 1.3 mg/dL (0.70-1.30); Chloride 101 mmol/L (98-107); Estimated GFR 64.88 (mL/min/1.73m2); Glucose 259 mg/dL (74-106); Potassium 4.2 mmol/L (3.5-5.1); Sodium 137 mmol/L (136-145); Total Protein 7.6 g/dL (6.4-8.2)
[2023-01-16 17:08] LABS: Bilirubin Negative (Negative); Blood Trace-intact (Negative); Clarity Clear (Clear); Glucose >=1000 mg/dL (Negative); Ketones Negative (Negative); Leukocyte Esterase Negative (Negative); Nitrite Negative (Negative); Specific Gravity 1.025 (1.005-1.025); Urobilinogen 0.2 mg/dL (Up to 0.2); pH 5.5 (5-8)
[2023-01-16 17:14] LABS: Bacteria Negative HPF (Negative); C & S Indicated? No; Casts Negative LPF (Negative); Crystals Negative HPF (Negative); Epithelial Cells Rare HPF (Negative); Mucus Trace (Negative); RBC 0-2 HPF (0-2); WBC 0-2 HPF (0-5)
--- NOTE | 2023-01-16 17:30 | DI.RAD_ITS ---
Exam(s) XR CHEST 2V PA LATERAL EXAM: XR CHEST 2V PA LATERAL CLINICAL HISTORY: cough TECHNIQUE: 2D digital imaging was performed. COMPARISON: CR XR CHEST 2V PA LATERAL from 10/06/2018 CR XR PORTABLE CHEST AP from 10/08/2018 FINDINGS: HEART: Normal size. Aorta: Not dilated. PULMONARY VASCULATURE: Normal. LUNGS: Streaky densities lung base overlying heart border similar to prior. Mild linear scarring rig ht mid lung field. Azygos lobe again noted, normal variant. PLEURAL SPACE: No pleural effusion or pneumothorax. BONE:Syndesmophyte formation along spine. Findings could represent ankylosing spondylitis. Surgical clips beneath the left diaphragm. IMPRESSION: No acute abnormality. DATA REPOSITORY: RADIATION DOSE DELIVERED:
--- NOTE | 2023-01-16 18:13 | DI.VRAD_ITS ---
PROCEDURE INFORMATION: Exam: XR Chest Exam date and time: 01/16/2023 5:53 PM Age: 57 years old Clinical indication: Cough TECHNIQUE: Imaging protocol: Radiologic exam of the chest. Views: 2 views. Total images: 2 COMPARISON: CR XR PORTABLE CHEST AP 10/08/2018 3:10 PM FINDINGS: Lungs: Minimal linear scarring in right mid lung and left lung base, stable. Lungs appear otherwise clear. No visible consolidation. No pulmonary masses. Pulmonary vascularity is normal. Pleural spaces: No pleural effusion or pneumothorax. Heart/Mediastinum: Heart size is normal. Bones/joints: No acute osseous abnormalities. IMPRESSION: 1. No acute cardiopulmonary disease. 2. Minimal linear scarring in right mid lung and left lung base, stable. Dictated and Authenticated by: Donna Bajwa MD. Ordering:JEREMY Coates MD
--- NOTE | 2023-01-16 18:42 | ED.PROG_ITS ---
Date of service: 01/16/23 Time of Service: 16:00 Medical Decision Making Please see Dr. Granger's note for patient initial presentation physical exam and work-up. I received patient in signout pending review of labs and reassessment. Labs were reviewed and patient does have slight leukocytosis which upon further review he has had this in the past. CMP does show elevated glucose of 259 and anion gap of 11.1 and patient did remain slightly tachycardic so additional fluids were given. Urinalysis shows no signs of infection but does show protein and intact blood but unremarkable microscopy. Did reassess patient in regards to leukocytosis and he states that he has had a cough recently so we will perform chest x-ray. Chest x-ray performed and shows no Findings to suggest pneumonia or an acute infectious process. Patient states no other signs of infection. Patient's vital signs did stabilize with no longer having any tachycardia and while patient was slightly hypertensive there was improvement there as well. Discussed with patient medication compliance including his insulin which he stated he needed refills. Patient was given refills of insulin and albuterol otherwise no obvious worrisome findings were noted. Patient was encouraged to return to the emergency department for any new or significant worsening of symptoms otherwise to follow-up with primary care provider. Patient did state he had improvement of symptoms prior to discharge. After discussion of diagnosis and plan of care patient has no further needs, questions, or concerns and states clear understanding to return to the emergency department for any worsening symptoms. This documentation was generated using [employer] dictation system, please disregard any oddities of phrase or misspellings. Imaging Data Radiologic Study: Imaging: X-Ray Radiologist's impression: Exam(s) PROCEDURE INFORMATION: Exam: XR Chest Exam date and time: 01/16/2023 5:53 PM Age: 57 years old Clinical indication: Cough TECHNIQUE: Imaging protocol: Radiologic exam of the chest. Views: 2 views. Total images: 2 COMPARISON: CR XR PORTABLE CHEST AP 10/08/2018 3:10 PM FINDINGS: Lungs: Minimal linear scarring in right mid lung and left lung base, stable. Lungs appear otherwise clear. No visible consolidation. No pulmonary masses. Pulmonary vascularity is normal. Pleural spaces: No pleural effusion or pneumothorax. Heart/Mediastinum: Heart size is normal. Bones/joints: No acute osseous abnormalities. IMPRESSION: 1. No acute cardiopulmonary disease. 2. Minimal linear scarring in right mid lung and left lung base, stable. Lab Data Lab results reviewed: Yes I reviewed the patient's lab results. Sign Out Sign Out Data: Sign Out Comment: follow up labs and reassess patient for disposition. Patient will need medication reconciliation and albuterol refill. Last updated by Albaro Granger MD at 01/16/23 16:04 Discharge Plan Disposition Patient Disposition: Home Condition: Improving Discharge Details Clinical Impression: Diabetes type 2, uncontrolled, Leukocytosis, Hypertension, Pain in toe of left foot Primary Care Provider: None,None ED Provider: Jaxon Regalado Home Meds and New Rx's Prescriptions: Continued pravastatin 40 MG tablet 40 mg PO DAILY amlodipine 10 MG tablet 1 tab PO DAILY losartan 100 MG tablet 1 tab PO DAILY metformin 500 MG tablet extended release 24hr 1 tab PO DAILY Simponi 50 MG/0.5 ML syringe 0.5 ml PO sildenafil [Viagra] 50 mg Tablet See Rx Instructions .ROUTE .COMPLEX Rx Instructions: please see pcp note spironolactone 25 mg tablet 1 mg PO DAILY nortriptyline 25 mg capsule See Rx Instructions .ROUTE .COMPLEX Patient Comments: TAKE ONE CAPSULE BY MOUTH EVERY NIGHT Rx Instructions: please see PCP note on RX minocycline 50 mg capsule See Rx Instructions .ROUTE .COMPLEX Patient Comments: TAKE ONE CAPSULE BY MOUTH EVERY DAY Rx Instructions: please see PCP note on RX furosemide [Lasix] 20 mg tablet See Rx Instructions .ROUTE .COMPLEX Patient Comments: TAKE ONE TABLET BY MOUTH EVERY DAY Rx Instructions: please see PCP note on RX dextroamphetamine-amphetamine [Adderall XR] 30 mg Capsule,Extended Release 24hr 1 cap PO BID naproxen 500 mg tablet See Rx Instructions .ROUTE .COMPLEX Patient Comments: TAKE ONE TABLET BY MOUTH TWICE A DAY NEEDED Rx Instructions: please see PCP note on RX oxycodone 10 mg tablet 10 mg PRN PRN Patient Comments: TAKE 1 TABLET BY MOUTH FOUR TIMES DAILY NEEDED FOR MODERATE TO SEVERE CHRONIC PAIN (DME) pen needle, diabetic [BD Jody 2nd Gen Pen Needle] 32 gauge x needle MISCELLANEOUS Patient Comments: USE ONE DAILY NEEDED Ozempic 2 mg/dose (8 mg/3 mL) pen injector See Rx Instructions .ROUTE .COMPLEX PRN Patient Comments: INJECT 2MG UNDER THE SKIN WEEKLY Rx Instructions: please see PCP note on RX albuterol sulfate 90 mcg/actuation HFA aerosol inhaler 2 puff IH Q6H PRN (Reason: shortness of breath or wheezing) Qty: 6.7 0RF insulin glargine [Basaglar KwikPen U-100 Insulin] 100 unit/mL (3 mL) insulin pen See Rx Instructions .ROUTE .COMPLEX Qty: 15 1RF Rx Instructions: please see PCP note on RX Discontinued baclofen 20 MG tablet 1 tab PO DAILY Patient Comments: not on medication list from PCP office misoprostol [Cytotec] 200 MCG tablet 1 cap PO BID Patient Comments: not on medication list from PCP office dextroamphetamine-amphetamine 30 MG capsule,extended release 24hr 30 mg PO DAILY Patient Comments: not on medication list from PCP office calcitonin (salmon) [Miacalcin] 200 UNITS/ML solution 1 spray Intranasal DAILY Patient Comments: not on medication list from PCP office lidocaine [Lidoderm] 1 PATCH patch 1 patch Topical Q24H Qty: 4 0RF Patient Comments: not on medication list from PCP office Mag 64 64 mg Tablet,Delayed Release (Dr/Ec) 64 mg PO BID Qty: 60 3RF Patient Comments: not on medication list from PCP office insulin glargine [Lantus Solostar U-100 Insulin] 100 unit/mL (3 mL) insulin pen 50 unit subcut HS Patient Comments: not on medication list from PCP office Discharge Instructions Instructions: Leukocytosis (ED), Hypertension (ED) Additional Instructions: It is very important that you take your medications as prescribed and follow-up with your primary care provider for reassessment. At this time your labs were nonworrisome and your x-ray of your foot showed no worrisome findings. If you develop any new or significant worsening of symptoms please return the emergency department for reassessment otherwise follow-up with your primary care provider. Referrals: Primary Care Provider [Outside] - 1 week Discharge Data Discharge Date/Time-TO BE ENTERED AT DEPARTURE: 01/16/23 19:17
[2023-01-16 19:06] VITALS: BP 149/85; PULSE 88; RESP 18; O2SAT 97
== END 2023-01-16 19:17 | disposition home or self-care (01) ==
PROVIDERS: Student in an Organized Health Care Education/Training Program; Emergency Provider Nurse Practitioner Family
DX: E11.9 Type 2 diabetes mellitus without complications (principal); I10 Essential (primary) hypertension; M79.675 Pain in left toe(s); D72.829 Elevated white blood cell count, unspecified
CPT/HCPCS: 36415; 36416; 80053; 82962; 96360; 99284; 71046; 73660; 81003; 81015; 85025

== ENCOUNTER 2023-08-07 01:40 | Emergency (ER) | payer MEDICARE, MEDICAID, SELFPAY ==
[2023-08-07] VITALS (10 sets, daily range): BP systolic 127–173; BP diastolic 68–120; PULSE 72–92; RESP 10–22; TEMP 36.6; O2SAT 96
--- NOTE | 2023-08-07 01:45 | DI.RAD_ITS ---
Exam(s) XR ABDOMEN FLAT UPRIGHT EXAM: XR ABDOMEN FLAT UPRIGHT CLINICAL HISTORY: bloating and distension. TECHNIQUE: 2D digital imaging was performed. COMPARISON: No exams were available for comparison FINDINGS: Two views: The bowel gas pattern is nonspecific. No evidence of bowel obstruction nor obvious free air. Calcifications are noted over both kidneys/probably calculi. Three screws are noted in the left hip femoral neck. There appears to be calcification in the inter spinous ligament in the lumbar spine an d ankylosis of the sacroiliac joints. IMPRESSION: Nonspecific bowel gas pattern. No evidence of bowel obstruction. Osseous findings consistent with ankylosing spondylitis Bilateral nephrolithiasis. DATA REPOSITORY: RADIATION DOSE DELIVERED:
--- NOTE | 2023-08-07 02:02 | W.ED.GENAD ---
Discharge Plan Disposition Patient Disposition: Home Condition: Good Discharge Details Clinical Impression: Hyperglycemia, Constipation Primary Care Provider: Sarwat Lugo ED Provider: Raul Negron Home Meds and New Rx's Prescriptions: New docusate sodium [Colace] 100 mg capsule 100 mg PO BID Qty: 100 0RF No Action pravastatin 40 MG tablet 40 mg PO DAILY amlodipine 10 MG tablet 1 tab PO DAILY losartan 100 MG tablet 1 tab PO DAILY metformin 500 MG tablet extended release 24hr 1 tab PO DAILY Simponi 50 MG/0.5 ML syringe 0.5 ml PO sildenafil [Viagra] 50 mg Tablet See Rx Instructions .ROUTE .COMPLEX Rx Instructions: please see pcp note spironolactone 25 mg tablet 1 mg PO DAILY nortriptyline 25 mg capsule See Rx Instructions .ROUTE .COMPLEX Patient Comments: TAKE ONE CAPSULE BY MOUTH EVERY NIGHT Rx Instructions: please see PCP note on RX minocycline 50 mg capsule See Rx Instructions .ROUTE .COMPLEX Patient Comments: TAKE ONE CAPSULE BY MOUTH EVERY DAY Rx Instructions: please see PCP note on RX furosemide [Lasix] 20 mg tablet See Rx Instructions .ROUTE .COMPLEX Patient Comments: TAKE ONE TABLET BY MOUTH EVERY DAY Rx Instructions: please see PCP note on RX dextroamphetamine-amphetamine [Adderall XR] 30 mg Capsule,Extended Release 24hr 1 cap PO BID naproxen 500 mg tablet See Rx Instructions .ROUTE .COMPLEX Patient Comments: TAKE ONE TABLET BY MOUTH TWICE A DAY NEEDED Rx Instructions: please see PCP note on RX oxycodone 10 mg tablet 10 mg PRN PRN Patient Comments: TAKE 1 TABLET BY MOUTH FOUR TIMES DAILY NEEDED FOR MODERATE TO SEVERE CHRONIC PAIN (DME) pen needle, diabetic [BD Jody 2nd Gen Pen Needle] 32 gauge x 5/32 needle MISCELLANEOUS Patient Comments: USE ONE DAILY NEEDED Ozempic 2 mg/dose (8 mg/3 mL) pen injector See Rx Instructions .ROUTE .COMPLEX PRN Patient Comments: INJECT 2MG UNDER THE SKIN WEEKLY Rx Instructions: please see PCP note on RX albuterol sulfate 90 mcg/actuation HFA aerosol inhaler 2 puff IH Q6H PRN (Reason: shortness of breath or wheezing) Qty: 6.7 0RF insulin glargine [Basaglar KwikPen U-100 Insulin] 100 unit/mL (3 mL) insulin pen See Rx Instructions .ROUTE .COMPLEX Qty: 15 1RF Rx Instructions: please see PCP note on RX Discharge Instructions Instructions: Constipation (ED), Diabetic Hyperglycemia (ED) Additional Instructions: At this time your blood sugar has gone down. Your potassium has normalized. Please continue to use your insulin as directed. Avoid sugary foods, or foods high in carbohydrates. Please continue to work closely with your primary care provider to keep your blood sugar levels closely managed. Please take the Colace twice daily as directed. Please make sure that you are drinking 10 to 12 cups of water to stay well-hydrated to prevent constipation. With the chronic opiate use, constipation can develop. If you notice any worsening of your symptoms, or any new symptoms such as vomiting, diarrhea, fever, chills, shortness of breath, chest pain, numbness, weakness, or fainting , please return immediately to the emergency department for reevaluation. Please follow up with your primary care provider as soon as possible for reassessment and reevaluation. As always, it was a pleasure participating in your medical care today. Referrals: Sarwat Lugo [Primary Care Provider] - Medical Decision Making 57-year-old male with a past medical history of ankylosing spondylitis, high cholesterol, type 2 diabetes on insulin, splenectomy, reactive airway disease, presents today for elevated blood sugars. Patient states that about a week or so ago he is blood sugars were slightly elevated, he contacted his primary care provider who transitioned his long-acting insulin from 54 units nightly to 30 units twice daily for 60 total. Since then he has continued to have elevated blood sugars. Tonight his blood sugar was 400, and he was recommended to come to the ER for further assessment. He does admit to some abdominal bloating but denies any pain, vomiting, or diarrhea. He denies any chest pain or shortness of breath. He denies any fever or chills. He states he has otherwise been taking his medication as directed. No other complaints at this time. No other modifying factors. Exam demonstrates dry mucous membranes, slightly distended abdomen but is notably nontender. Blood sugar is 480. Will give 12 units of subcu insulin, rehydrate, evaluate for ketoacidosis which I feel is less likely. Will get a plain film x-ray to evaluate for obstruction, however my high suspicion is for intestinal gas. Notably nontender nonsurgical abdomen shows no necessity for emergent CT. We will monitor closely and reassess. 3:39 AM Laboratory workup has returned, minimal elevation of white count, but no cough fever or chills. Urinalysis shows no evidence of infection. Blood sugar initially was 330, potassium was elevated at 5.8. BUN/creatinine slightly elevated as well. Patient was given a liter of normal saline, his insulin, and on reassessment potassium down to 5.2, creatinine improving. Patient's heart rate normal, blood pressure normal. Repeat blood sugar is 231. No evidence of tachycardia, hypotension, or other concerning abnormality. X-ray shows evidence of nonobstructive bowel gas pattern, notable constipation which correlates well with the patient's symptomatology. Did discuss with the patient the importance of regular fluids and stool softeners when taking opiates. Will give prescription for Colace. At this time there is no evidence of diabetic ketoacidosis, or hyperosmolar hyperglycemic none ketosis requiring further fluids or insulin. Patient otherwise feels very well, and is stable for discharge. Do recommend continued avoidance of high carb foods, sugary foods, and continued outpatient management of his blood sugars/insulin. Discussed red flags for which to return. I have extensively reviewed the treatment plan and discharge instructions with the patient. I have addressed all patient concerns at this time. The patient was made aware of what symptoms to monitor for that would warrant a return to the emergency department. Discussed the plan with the patient, they demonstrate verbal understanding and agreement with our assessment and plan at this time. The documentation in this chart was dictated using [employer] dictation software. Please excuse any dictation errors. FINDINGS: Gastrointestinal tract: Unremarkable nonobstructive bowel gas pattern. Stool and gas throughout the nondilated colon may signify constipation. Intraperitoneal space: Normal. No free air. Bones/joints: Internal fixation screws in the proximal left femur. IMPRESSION: Unremarkable nonobstructive bowel gas pattern. Stool and gas throughout the nondilated colon may signify constipation. Thank you for allowing us to participate in the care of your patient. Dictated and Authenticated by: Mika De MD 08/07/2023 3:20 AM Eastern Time ([place] & [place]) HPI General Date/Time Provider Initiated Documentation: 08/07/23 01:43. HPI Narrative: 57-year-old male with a past medical history of ankylosing spondylitis, high cholesterol, type 2 diabetes on insulin, splenectomy, reactive airway disease, presents today for elevated blood sugars. Patient states that about a week or so ago he is blood sugars were slightly elevated, he contacted his primary care provider who transitioned his long-acting insulin from 54 units nightly to 30 units twice daily for 60 total. Since then he has continued to have elevated blood sugars. Tonight his blood sugar was 400, and he was recommended to come to the ER for further assessment. He does admit to some abdominal bloating but denies any pain, vomiting, or diarrhea. He denies any chest pain or shortness of breath. He denies any fever or chills. He states he has otherwise been taking his medication as directed. No other complaints at this time. No other modifying factors. Related Data Home Medications Medication Instructions Recorded Confirmed amlodipine 10 mg tablet 1 tab PO DAILY 01/31/16 08/07/23 golimumab 50 mg/0.5 mL 0.5 ml PO 01/31/16 subcutaneous syringe (Simponi) losartan 100 mg tablet 1 tab PO DAILY 01/31/16 08/07/23 metformin 500 mg tablet,extended 1 tab PO DAILY 01/31/16 08/07/23 release 24hr (osmotic) pravastatin 40 mg tablet 40 mg PO DAILY 01/31/16 08/07/23 albuterol sulfate 90 mcg/actuation 2 puff inhalation Q6H PRN 01/16/23 08/07/23 aerosol inhaler shortness of breath or wheezing #6.7 grams dextroamphetamine-amphetamine ER 1 cap PO BID 01/16/23 08/07/23 30 mg 24hr capsule,extend release (Adderall XR) furosemide 20 mg tablet (Lasix) See Rx Instructions .Route .COMPLEX 01/16/23 08/07/23 insulin glargine 100 unit/mL (3 See Rx Instructions .Route 01/16/23 08/07/23 mL) subcutaneous pen (Basaglar .COMPLEX #15 mL KwikPen U-100 Insulin) minocycline 50 mg capsule See Rx Instructions .Route .COMPLEX 01/16/23 08/07/23 naproxen 500 mg tablet See Rx Instructions .Route .COMPLEX 01/16/23 08/07/23 nortriptyline 25 mg capsule See Rx Instructions .Route .COMPLEX 01/16/23 08/07/23 oxycodone 10 mg tablet 10 mg PRN PRN 01/16/23 01/16/23 pen needle, diabetic 32 gauge x 01/16/23 01/16/23 5/32 (BD Jody 2nd Gen Pen Needle) semaglutide 2 mg/dose (8 mg/3 mL) See Rx Instructions .Route 01/16/23 08/07/23 subcutaneous pen injector (Ozempic) .COMPLEX PRN sildenafil 50 mg tablet (Viagra) See Rx Instructions .Route .COMPLEX 01/16/23 08/07/23 spironolactone 25 mg tablet 1 mg PO DAILY 01/16/23 08/07/23 docusate sodium 100 mg capsule 100 mg PO BID #100 caps 08/07/23 (Colace) Previous Rx's Medication Instructions Recorded albuterol sulfate 90 mcg/actuation 2 puff inhalation Q6H PRN 01/16/23 aerosol inhaler shortness of breath or wheezing #6.7 grams insulin glargine 100 unit/mL (3 See Rx Instructions .Route 01/16/23 mL) subcutaneous pen (Basaglar .COMPLEX #15 mL KwikPen U-100 Insulin) docusate sodium 100 mg capsule 100 mg PO BID #100 caps 08/07/23 (Colace) Allergies Allergy/AdvReac Type Severity Reaction Status Date / Time No Known Allergies Allergy Unverified 08/07/23 02:39 General Stated Complaint: GenMedical SHINE: 3 Review of Systems All systems reviewed & are unremarkable except as noted in HPI and below PFSH All Active Problems (Updated 08/07/23 @ 03:36 by Raul Negron DO) Constipation (Acute) Hyperglycemia (Acute) Bilateral lower extremity edema (Acute) Bilateral leg edema (Acute) Ankylosing spondylitis (Acute) Leukocytosis (Acute) H/O splenectomy (Acute) Hypertension (Chronic) H/O immunosuppressive therapy (Acute) GERD (gastroesophageal reflux disease) (Chronic) Hyperlipidemia (Acute) CAP (community acquired pneumonia) (Acute) Diabetes type 2, uncontrolled (Acute) Medical History (Updated 08/07/23 @ 03:36 by Raul Negron DO) Neuropathy Cough Family History Mother , at age 46 Diabetes Heart disease Father , Age 73 Heart disease Stroke Social History (Reviewed 08/07/23 @ 02:05 by MARCELA De La Fuente Smoking/Tobacco Use Status: Never Smoking risk assessment performed?: Yes Alcohol Intake: current Alcohol Intake frequency: a few times a week Alcohol type: beer Drug use: Occasionally Substance use type: marijuana Do you feel safe at home: Yes Do you feel safe in your relationship?: Yes Exam Narrative Exam Narrative: 1.Const: Well-nourished, Well-developed, appearing stated age 2.Eyes: PERRL, no conjunctival injection, and symmetrical lids. 3.ENT: Atraumatic external nose and ears. Dry MM. Neck: Symmetric, trachea midline, No thyromegaly. 4.CVS: +S1/S2, No murmurs or gallops. Peripheral pulses 2+ and equal in all extremities. Brisk capillary refill in all extremities. 5.RESP: Unlabored respiratory effort. Clear to auscultation bilaterally. No wheezes rales or rhonchi 6.GI: Soft, mildly distended, no guarding or rebound. No pain to McBurney's point, negative Chiu sign. Bowel sounds present. 7.MSK: Normocephalic/Atraumatic, Extremities w/o deformity or ttp No cyanosis or clubbing, Normal movement of all extremities 8.Skin: Warm, Dry. No rashes or lesions. 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 Sensation grossly intact, no focal neurologic deficits. 10.Psych: (AAO) x3. Appropriate mood and affect Course Vital Signs Vital signs: Vital Signs Temperature 36.6 C 08/07/23 01:47 Pulse 88 08/07/23 01:47 Respiratory Rate 20 08/07/23 01:47 Blood Pressure 173/120 H 08/07/23 01:47 Pulse Oximetry 96 08/07/23 01:47 Temperature 36.6 C 08/07/23 01:47 Temperature Source Oral 08/07/23 01:47 Pulse 88 08/07/23 01:47 Respiratory Rate 20 08/07/23 01:47 Blood Pressure 173/120 H 08/07/23 01:47 Pulse Oximetry 96 08/07/23 01:47 Oxygen Delivery Method Room Air 08/07/23 01:47 Oxygen Flow Rate 0 08/07/23 01:47 Pain Level 0 08/07/23 01:47
[2023-08-07] MEDS: Insulin REGULAR-Human 100 UNITS/ML UNIT 12 UNITS SC (02:05)
[2023-08-07] MEDS: Normal Saline 1,000 ML 1000 ML IV (02:08)
[2023-08-07 02:12] LABS: BE (Venous) 2 mmol/L (-2-3); HCO3 (Venous) 26 mmol/L (23-28); O2 Sat (Venous) 90 %; TCO2 (Venous) 24 mmol/L (24-29); pCO2 (Venous) 43 mmHg (41-51); pO2 (Venous) 59 mmHg
[2023-08-07 02:14] LABS: Abs Immature Grans 0.11 10^3/uL (0.0-0.06); Absolute Basophil Count 0.03 10^3/uL (0.0-0.2); Absolute Lymphocyte Count 2.01 10^3/uL (1.2-3.4); Absolute Neutrophil Count 9.83 10^3/uL (1.2-6.7); Basophils % 0.2; HCT 39.1 % (40.0-50.0); HGB 13.3 g/dL (13.5-17.5); Immature Grans % 0.9; MCH 31.5 pg (27.0-33.0); MCV 93 fL (80-95); MPV 9.5 fL (8.0-11.0); Monocytes % 4.8; Neutrophils % 78.1; Platelet Count 421 10^3/uL (130-400); RBC 4.22 10^6/uL (4.36-5.78); RDW 12.5 % (11.8-14.1); RDW-SD 42.6 fL; WBC 12.59 10^3/uL (4.4-10.8)
[2023-08-07 02:23] LABS: Bilirubin Negative (Negative); Blood Negative (Negative); Clarity Clear (Clear); Glucose 500 mg/dL (Negative); Ketones Negative (Negative); Leukocyte Esterase Negative (Negative); Nitrite Negative (Negative); Specific Gravity 1.015 (1.005-1.025); Urobilinogen 0.2 mg/dL (Up to 0.2)
[2023-08-07 02:29] LABS: ALT 41 U/L (16-63); AST 17 U/L (15-37); Albumin 3.6 g/dL (3.4-5.0); Alkaline Phosphatase 92 U/L (46-116); Anion Gap 7.8 mmol/L (3-11); BUN 37 mg/dL (7-18); Bilirubin, Total 0.3 mg/dL (0.2-1.0); CO2 26.2 mmol/L (21.0-32.0); CREATININE 1.8 mg/dL (0.70-1.30); Calcium 8.9 mg/dL (8.5-10.1); Chloride 100 mmol/L (98-107); Glucose 330 mg/dL (74-106); Potassium 5.8 mmol/L (3.5-5.1); Sodium 134 mmol/L (136-145); Total Protein 7.3 g/dL (6.4-8.2)
[2023-08-07 02:33] LABS: Bacteria Rare HPF (Negative); C & S Indicated? No; Crystals Negative HPF (Negative); Epithelial Cells Negative HPF (Negative); Mucus Negative (Negative); RBC Negative HPF (0-2); WBC 0-2 HPF (0-5)
--- NOTE | 2023-08-07 03:21 | DI.VRAD_ITS ---
PROCEDURE INFORMATION: Exam: XR Abdomen Exam date and time: 08/07/2023 2:20 AM Age: 57 years old Clinical indication: Bloating and other: Distension; Patient HX: Bloating and distension TECHNIQUE: Imaging protocol: Radiologic exam of the abdomen. Views: 2 Views. Upright and supine views. COMPARISON: CR XR CHEST 2V PA LATERAL 01/16/2023 5:53 PM FINDINGS: Gastrointestinal tract: Unremarkable nonobstructive bowel gas pattern. Stool and gas throughout the nondilated colon may signify constipation. Intraperitoneal space: Normal. No free air. Bones/joints: Internal fixation screws in the proximal left femur. IMPRESSION: Unremarkable nonobstructive bowel gas pattern. Stool and gas throughout the nondilated colon may signify constipation. Dictated and Authenticated by: Mika De MD. Ordering:SHAQ Carter MD
[2023-08-07 03:27] LABS: Anion Gap 7.2 mmol/L (3-11); BUN 35 mg/dL (7-18); CO2 25.8 mmol/L (21.0-32.0); CREATININE 1.5 mg/dL (0.70-1.30); Calcium 8.2 mg/dL (8.5-10.1); Chloride 103 mmol/L (98-107); Estimated GFR 54.64 (mL/min/1.73m2); Glucose 231 mg/dL (74-106); Potassium 5.2 mmol/L (3.5-5.1); Sodium 136 mmol/L (136-145)
== END 2023-08-07 03:43 | disposition home or self-care (01) ==
PROVIDERS: Emergency Provider Student in an Organized Health Care Education/Training Program; PCP Internal Medicine
DX: E11.65 Type 2 diabetes mellitus with hyperglycemia (principal); K59.00 Constipation, unspecified; N20.0 Calculus of kidney; M45.7 Ankylosing spondylitis of lumbosacral region; E78.00 Pure hypercholesterolemia, unspecified; Z79.4 Long term (current) use of insulin; Z90.81 Acquired absence of spleen
CPT/HCPCS: 36415; 80048; 80053; 82805; 96360; 99283; 74019; 81003; 81015; 85025

== ENCOUNTER 2024-01-16 13:52 | Emergency (ER) | payer MEDICARE, MEDICAID, SELFPAY ==
[2024-01-16 13:55] VITALS: BP 180/93; PULSE 68; RESP 18; TEMP 37; O2SAT 96
--- NOTE | 2024-01-16 13:59 | ED.GENADUL_ITS ---
Discharge Plan Disposition Patient Disposition: Home Discharge Details Clinical Impression: Rash Primary Care Provider: Sarwat Lugo ED Provider: Samaria Stockton Home Meds and New Rx's Prescriptions: New mupirocin 2 % ointment 1 applic topical BID Qty: 15 0RF Continued pravastatin 40 MG tablet 40 mg PO DAILY amlodipine 10 MG tablet 1 tab PO DAILY losartan 100 MG tablet 1 tab PO DAILY metformin 500 MG tablet extended release 24hr 1 tab PO DAILY Simponi 50 MG/0.5 ML syringe 0.5 ml PO docusate sodium [Colace] 100 mg capsule 100 mg PO BID Qty: 100 0RF sildenafil [Viagra] 50 mg Tablet See Rx Instructions .ROUTE .COMPLEX Rx Instructions: please see pcp note spironolactone 25 mg tablet 1 mg PO DAILY nortriptyline 25 mg capsule See Rx Instructions .ROUTE .COMPLEX Patient Comments: TAKE ONE CAPSULE BY MOUTH EVERY NIGHT Rx Instructions: please see PCP note on RX minocycline 50 mg capsule See Rx Instructions .ROUTE .COMPLEX Patient Comments: TAKE ONE CAPSULE BY MOUTH EVERY DAY Rx Instructions: please see PCP note on RX furosemide [Lasix] 20 mg tablet See Rx Instructions .ROUTE .COMPLEX Patient Comments: TAKE ONE TABLET BY MOUTH EVERY DAY Rx Instructions: please see PCP note on RX dextroamphetamine-amphetamine [Adderall XR] 30 mg Capsule,Extended Release 24hr 1 cap PO BID naproxen 500 mg tablet See Rx Instructions .ROUTE .COMPLEX Patient Comments: TAKE ONE TABLET BY MOUTH TWICE A DAY NEEDED Rx Instructions: please see PCP note on RX oxycodone 10 mg tablet 10 mg PRN PRN Patient Comments: TAKE 1 TABLET BY MOUTH FOUR TIMES DAILY NEEDED FOR MODERATE TO SEVERE CHRONIC PAIN (DME) pen needle, diabetic [BD Jody 2nd Gen Pen Needle] 32 gauge x needle MISCELLANEOUS Patient Comments: USE ONE DAILY NEEDED Ozempic 2 mg/dose (8 mg/3 mL) pen injector See Rx Instructions .ROUTE .COMPLEX PRN Patient Comments: INJECT 2MG UNDER THE SKIN WEEKLY Rx Instructions: please see PCP note on RX albuterol sulfate 90 mcg/actuation HFA aerosol inhaler 2 puff IH Q6H PRN (Reason: shortness of breath or wheezing) Qty: 6.7 0RF insulin glargine [Basaglar KwikPen U-100 Insulin] 100 unit/mL (3 mL) insulin pen See Rx Instructions .ROUTE .COMPLEX Qty: 15 1RF Rx Instructions: please see PCP note on RX Discharge Instructions Instructions: Acute Rash (ED) Additional Instructions: Call your primary care provider first thing in the morning to schedule follow-up appointment for reevaluation of your rash. You may use the mupirocin ointment twice daily to help with the rash, as it look like it may be some infected bug bites. Keep your rash clean and dry, being sure not to scratch it. Wash twice daily with antibacterial soap and water before you put your ointment on. You may cover with a large bandage if that helps with the discomfort. Keep an eye out for signs of worsening infection such as increasing redness, swelling, pus drainage, increasing pain; these may be signs that systemic antibiotics are needed. HPI General Date/Time Provider Initiated Documentation: 01/16/24 13:58 . HPI Narrative: Ervin is a 58-year-old male who presents to the emergency department today for evaluation of rash on his left side. He reports that he first noticed the rash about a week ago, says it is not itchy, but is a little bit uncomfortable. It has not been draining or changing since onset. He denies associated fever/chills, congestion, sore throat, cough, general malaise. Says he has otherwise been feeling well. No previous history of rashes similar to this. No obvious inciting incident, he thinks he may have gotten a bug bite. Related Data Home Medications Medication Instructions Recorded Confirmed amlodipine 10 mg tablet 1 tab PO DAILY 01/31/16 01/16/24 golimumab 50 mg/0.5 mL 0.5 ml PO 01/31/16 subcutaneous syringe (Simponi) losartan 100 mg tablet 1 tab PO DAILY 01/31/16 01/16/24 metformin 500 mg tablet,extended 1 tab PO DAILY 01/31/16 01/16/24 release 24hr (osmotic) pravastatin 40 mg tablet 40 mg PO DAILY 01/31/16 01/16/24 albuterol sulfate 90 mcg/actuation 2 puff inhalation Q6H PRN 01/16/23 01/16/24 aerosol inhaler shortness of breath or wheezing #6.7 grams dextroamphetamine-amphetamine ER 1 cap PO BID 01/16/23 01/16/24 30 mg 24hr capsule,extend release (Adderall XR) furosemide 20 mg tablet (Lasix) See Rx Instructions .Route .COMPLEX 01/16/23 01/16/24 insulin glargine 100 unit/mL (3 See Rx Instructions .Route 01/16/23 01/16/24 mL) subcutaneous pen (Basaglar .COMPLEX #15 mL KwikPen U-100 Insulin) minocycline 50 mg capsule See Rx Instructions .Route .COMPLEX 01/16/23 01/16/24 naproxen 500 mg tablet See Rx Instructions .Route .COMPLEX 01/16/23 01/16/24 nortriptyline 25 mg capsule See Rx Instructions .Route .COMPLEX 01/16/23 01/16/24 oxycodone 10 mg tablet 10 mg PRN PRN 01/16/23 01/16/23 pen needle, diabetic 32 gauge x 01/16/23 01/16/23 (BD Jody 2nd Gen Pen Needle) semaglutide 2 mg/dose (8 mg/3 mL) See Rx Instructions .Route 01/16/23 01/16/24 subcutaneous pen injector (Ozempic) .COMPLEX PRN sildenafil 50 mg tablet (Viagra) See Rx Instructions .Route .COMPLEX 01/16/23 01/16/24 spironolactone 25 mg tablet 1 mg PO DAILY 01/16/23 01/16/24 docusate sodium 100 mg capsule 100 mg PO BID #100 caps 08/07/23 01/16/24 (Colace) mupirocin 2 % topical ointment 1 applic topical BID #15 grams 01/16/24 Previous Rx's Medication Instructions Recorded albuterol sulfate 90 mcg/actuation 2 puff inhalation Q6H PRN 01/16/23 aerosol inhaler shortness of breath or wheezing #6.7 grams insulin glargine 100 unit/mL (3 See Rx Instructions .Route 01/16/23 mL) subcutaneous pen (Basaglar .COMPLEX #15 mL KwikPen U-100 Insulin) docusate sodium 100 mg capsule 100 mg PO BID #100 caps 08/07/23 (Colace) mupirocin 2 % topical ointment 1 applic topical BID #15 grams 01/16/24 Allergies Allergy/AdvReac Type Severity Reaction Status Date / Time No Known Allergies Allergy Unverified 01/16/24 13:59 General Stated Complaint: RashLesion SHINE: 4 Review of Systems Narrative: see HPI Exam Const General: cooperative, healthy appearing, comfortable, no acute distress and well developed Chest Chest: normal inspection of the chest Resp Effort & Inspection: normal respiratory effort and able to speak in complete sentences Skin Rashes: rashes noted left mid truncal surface not flaking, not indurated, not peeling, not scaly, not wet and without crusting and other (4 cm x 1 cm erythematous nontender rash with two pinpoint centers noted to L side) Course Vital Signs Vital signs: Vital Signs Temperature 37.0 C 01/16/24 13:55 Pulse 68 01/16/24 13:55 Respiratory Rate 18 01/16/24 13:55 Blood Pressure 180/93 H 01/16/24 13:55 Pulse Oximetry 96 01/16/24 13:55 Temperature 37.0 C 01/16/24 13:55 Temperature Source Skin 01/16/24 13:55 Pulse 68 01/16/24 13:55 Respiratory Rate 18 01/16/24 13:55 Respiratory Effort Normal 01/16/24 13:57 Blood Pressure 180/93 H 01/16/24 13:55 Blood Pressure Position Sitting 01/16/24 13:55 Pulse Oximetry 96 01/16/24 13:55 Oxygen Delivery Method Room Air 01/16/24 13:55 Oxygen Flow Rate 0 01/16/24 13:55 Medical Decision Making Ervin is a 58-year-old male who presents to the emergency department today for evaluation of rash on his left side. He reports that he first noticed the rash about a week ago, says it is not itchy, but is a little bit uncomfortable. It has not been draining or changing since onset. He denies associated fever/chills, congestion, sore throat, cough, general malaise. Says he has otherwise been feeling well. No previous history of rashes similar to this. No obvious inciting incident, he thinks he may have gotten a bug bite. Physical exam remarkable for approximately 4 cm x 1 cm erythematous lesion with two pinpoint centers noted to L side. No crusting/drainage. No surrounding erythema. Nontender to palpation. Vital signs notable for hypertension, however patient was noted to be very animated and moving his arm consistently throughout blood pressure measurement. Unclear etiology of rash, possible infected bug bite, though contact is also possible. Not consistent with shingles, especially based on timeline. Will prescribe mupirocin ointment and good wound care. Advise follow-up with PCP for further management and evaluation. He is agreeable with plan of care. Quality:SDOH Health Related Social Needs: No Data to Display PFSH All Active Problems (Updated 01/16/24 @ 14:02 by Samaria Angela) Rash (Acute) Bilateral lower extremity edema (Acute) Bilateral leg edema (Acute) Ankylosing spondylitis (Acute) Leukocytosis (Acute) H/O splenectomy (Acute) Hypertension (Chronic) H/O immunosuppressive therapy (Acute) GERD (gastroesophageal reflux disease) (Chronic) Hyperlipidemia (Acute) CAP (community acquired pneumonia) (Acute) Diabetes type 2, uncontrolled (Acute) Medical History (Updated 01/16/24 @ 14:02 by Samaria Angela) Neuropathy Cough Family History Mother , at age 46 Diabetes Heart disease Father , Age 73 Heart disease Stroke Social History Smoking/Tobacco Use Status: Never Smoking risk assessment performed?: Yes Alcohol Intake: current Alcohol Intake frequency: a few times a week Alcohol type: beer Drug use: Occasionally Substance use type: marijuana Do you feel safe at home: Yes Do you feel safe in your relationship?: Yes
== END 2024-01-16 14:05 | disposition home or self-care (01) ==
LOC: ER 14:55
PROVIDERS: Emergency Provider Nurse Practitioner Family; PCP Internal Medicine
DX: R21 Rash and other nonspecific skin eruption (principal); I10 Essential (primary) hypertension; E78.5 Hyperlipidemia, unspecified; E11.9 Type 2 diabetes mellitus without complications; Z79.4 Long term (current) use of insulin; Z79.84 Long term (current) use of oral hypoglycemic drugs; Z79.85 Long-term (current) use of injectable non-insulin antidiabetic drugs
CPT/HCPCS: 99283

== ENCOUNTER 2025-06-06 20:14 | Observation (INO) | payer MEDICARE, MEDICAID, SELFPAY ==
[2025-06-06 20:21] VITALS: BP 270/116; PULSE 96; RESP 18; TEMP 36.6; O2SAT 96
[2025-06-06 20:24] VITALS: RESP 18
--- NOTE | 2025-06-06 20:43 | DI.CT_ITS ---
Exam(s) CT FACIAL W EXAM: CT FACIAL W CLINICAL HISTORY: wound to L tenriism, significant pain. TECHNIQUE: Imaging Protocol: Axial computed tomography images with coronal and sagittal reformatted images were created and reviewed CONTRAST MATERIAL: Intravenous: Omnipaque 350 Contrast volume:100 ml contrast route:IV - COMPARISON: CR,XR XR CHEST 2V PA LATERAL from 01/16/2023 FINDINGS: Facial Bones: No fracture is noted in the facial bones. Sinuses and Mastoids: Unremarkable. Cervical spine: Flowing syndesmophytes which could indicate ankylosing spondylitis. Mandible and bilateral temporomandibular joints: Normal. Globes, extraocular muscles, optic nerves and retrobulbar fat: Normal. Upper aerodigestive tract: Normal. The parotid, submandibular and visualized portions of the thyroid appear normal. Soft tissues: There is an abscess in the pre-auricular subcutaneous fat measuring 2.2 x 1.2 x 2.2 cm. The external auditory canal appears normal without abnormal thickening. The visualized portions of the brain are unremarkable. There is normal enhancement in the visualized portions of the [place] vasculature. There is no evidence of stenosis in the carotid or vertebral arteries. IMPRESSION: 2.2 centimeter abscess in the subcutaneous fat in the pre-auricular region. The preliminary [facility] report was reviewed. RADIATION DOSE DELIVERED: Total DLP DATA REPOSITORY: All CT scans at this facility are submitted to the National Radiology Data Registry (NRDR) Dose Index Registry (DIR) with the [employer] (ACR). RADIATION OPTIMIZATION: All CT scans at this facility use at least one of these dose optimization techniques: automated exposure control; mA and/or kV adjustment per patient size (includes targeted exams where dose is matched to clinical indication); or iterative reconstruction.
--- NOTE | 2025-06-06 20:44 | W.ED.GENAD ---
Discharge Plan Discharge Details Chief Complaint: GenMedical Primary Care Provider: Sarwat Lugo ED Provider: Samaria Stockton Home Meds and New Rx's Prescriptions: No Action pravastatin 40 MG tablet 40 mg PO DAILY amlodipine 10 MG tablet 1 tab PO DAILY losartan 100 MG tablet 1 tab PO DAILY metformin 500 MG tablet extended release 24hr 1 tab PO DAILY Simponi 50 MG/0.5 ML syringe 0.5 ml PO docusate sodium [Colace] 100 mg capsule 100 mg PO BID Qty: 100 0RF mupirocin 2 % ointment 1 applic topical BID Qty: 15 0RF sildenafil [Viagra] 50 mg Tablet See Rx Instructions .ROUTE .COMPLEX Rx Instructions: please see pcp note spironolactone 25 mg tablet 1 mg PO DAILY nortriptyline 25 mg capsule See Rx Instructions .ROUTE .COMPLEX Patient Comments: TAKE ONE CAPSULE BY MOUTH EVERY NIGHT Rx Instructions: please see PCP note on RX minocycline 50 mg capsule See Rx Instructions .ROUTE .COMPLEX Patient Comments: TAKE ONE CAPSULE BY MOUTH EVERY DAY Rx Instructions: please see PCP note on RX furosemide [Lasix] 20 mg tablet See Rx Instructions .ROUTE .COMPLEX Patient Comments: TAKE ONE TABLET BY MOUTH EVERY DAY Rx Instructions: please see PCP note on RX dextroamphetamine-amphetamine [Adderall XR] 30 mg Capsule,Extended Release 24hr 1 cap PO BID naproxen 500 mg tablet See Rx Instructions .ROUTE .COMPLEX Patient Comments: TAKE ONE TABLET BY MOUTH TWICE A DAY NEEDED Rx Instructions: please see PCP note on RX oxycodone 10 mg tablet 10 mg PRN PRN Patient Comments: TAKE 1 TABLET BY MOUTH FOUR TIMES DAILY NEEDED FOR MODERATE TO SEVERE CHRONIC PAIN (DME) pen needle, diabetic [BD Jody 2nd Gen Pen Needle] 32 gauge x 5/32 needle MISCELLANEOUS Patient Comments: USE ONE DAILY NEEDED Ozempic 2 mg/dose (8 mg/3 mL) pen injector See Rx Instructions .ROUTE .COMPLEX PRN Patient Comments: INJECT 2MG UNDER THE SKIN WEEKLY Rx Instructions: please see PCP note on RX albuterol sulfate 90 mcg/actuation HFA aerosol inhaler 2 puff IH Q6H PRN (Reason: shortness of breath or wheezing) Qty: 6.7 0RF insulin glargine [Basaglar KwikPen U-100 Insulin] 100 unit/mL (3 mL) insulin pen See Rx Instructions .ROUTE .COMPLEX Qty: 15 1RF Rx Instructions: please see PCP note on RX HPI General Date/Time Provider Initiated Documentation: 06/06/25 20:23. HPI Narrative: Ervin is a 59-year-old male who presents to the emergency department today for evaluation of sores on L side of face and left hand, as well as poorly controlled diabetes. He reports he has had wounds on his hands, specifically to the left middle finger and palm of his left hand since he touched a hot plate couple weeks ago. It has since turned red and and started draining pus. 3 days ago he noticed a lesion on the left temporal area of his face that is scabbed and tender to palpation. He thinks it may have been paining pus as well. He has been avoiding picking it and applying peroxide. This is accompanied by a headache and general feeling of unwellness/body aches. Denies fever/chills, congestion, sore throat, cough, chest pain, difficulty breathing, nausea/vomiting, change in bowel or bladder function. He reports that he has also been having a hard time controlling his blood glucose, has not been able to check his blood glucose due to misplacing his glucometer a month ago but has been continue to use insulin. He thinks he has been taking his medications as prescribed, but did not take his antihypertensives tonight. Last took them last night. PMH significant for T2DM, ulnar neuropathy, HTN, ankylosing spondylitis. Related Data Home Medications ?Medication ?Instructions ?Recorded ?Confirmed amlodipine 10 mg tablet 1 tab PO DAILY 01/31/16 01/16/24 golimumab 50 mg/0.5 mL 0.5 ml PO 01/31/16 subcutaneous syringe (Simponi) losartan 100 mg tablet 1 tab PO DAILY 01/31/16 01/16/24 metformin 500 mg tablet,extended 1 tab PO DAILY 01/31/16 01/16/24 release 24hr (osmotic) pravastatin 40 mg tablet 40 mg PO DAILY 01/31/16 01/16/24 albuterol sulfate 90 mcg/actuation 2 puff inhalation Q6H PRN 01/16/23 01/16/24 aerosol inhaler shortness of breath or wheezing #6.7 grams dextroamphetamine-amphetamine ER 1 cap PO BID 01/16/23 01/16/24 30 mg 24hr capsule,extend release (Adderall XR) furosemide 20 mg tablet (Lasix) See Rx Instructions .Route .COMPLEX 01/16/23 01/16/24 insulin glargine 100 unit/mL (3 See Rx Instructions .Route 01/16/23 01/16/24 mL) subcutaneous pen (Basaglar .COMPLEX #15 mL KwikPen U-100 Insulin) minocycline 50 mg capsule See Rx Instructions .Route .COMPLEX 01/16/23 01/16/24 naproxen 500 mg tablet See Rx Instructions .Route .COMPLEX 01/16/23 01/16/24 nortriptyline 25 mg capsule See Rx Instructions .Route .COMPLEX 01/16/23 01/16/24 oxycodone 10 mg tablet 10 mg PRN PRN 01/16/23 01/16/23 pen needle, diabetic 32 gauge x 01/16/23 01/16/23 (BD Jody 2nd Gen Pen Needle) semaglutide 2 mg/dose (8 mg/3 mL) See Rx Instructions .Route 01/16/23 01/16/24 subcutaneous pen injector (Ozempic) .COMPLEX PRN sildenafil 50 mg tablet (Viagra) See Rx Instructions .Route .COMPLEX 01/16/23 01/16/24 spironolactone 25 mg tablet 1 mg PO DAILY 01/16/23 01/16/24 docusate sodium 100 mg capsule 100 mg PO BID #100 caps 08/07/23 01/16/24 (Colace) mupirocin 2 % topical ointment 1 applic topical BID #15 grams 01/16/24 Previous Rx's ?Medication ?Instructions ?Recorded albuterol sulfate 90 mcg/actuation 2 puff inhalation Q6H PRN 01/16/23 aerosol inhaler shortness of breath or wheezing #6.7 grams insulin glargine 100 unit/mL (3 See Rx Instructions .Route 01/16/23 mL) subcutaneous pen (Basaglar .COMPLEX #15 mL KwikPen U-100 Insulin) docusate sodium 100 mg capsule 100 mg PO BID #100 caps 08/07/23 (Colace) mupirocin 2 % topical ointment 1 applic topical BID #15 grams 01/16/24 Allergies Allergy/AdvReac Type Severity Reaction Status Date / Time No Known Allergies Allergy Unverified 01/16/24 13:59 General Stated Complaint: GenMedical SHNIE: 3 Exam Narrative Exam Narrative: General Appearance: Normal. Patient alert and oriented, no acute distress Vital signs: Within normal limits. HEENT: Crusted lesion approx 3 cm diameter noted on left temporal, tender to palpation. No obvious erythema or drainage. Mildy erythematous R upper and lower eyelids, no subconjunctival erythema. Respiratory: Easy work of breathing, lung sounds clear bilaterally Cardiovascular: normal heart sounds, regular rate and rhythm Gastrointestinal: Abdomen soft, nondistended, nontender to palpation. Skin: Warm and dry. Crusted dry lesions noted to distal L middle finger and R palm. +erythema to L distal finger. Psychiatric: Normal. Course Vital Signs Vital signs: Vital Signs Temperature 36.6 C 06/06/25 20:21 Pulse 96 H 06/06/25 20:21 Respiratory Rate 18 06/06/25 20:21 Blood Pressure 270/116 H 06/06/25 20:21 Pulse Oximetry 96 06/06/25 20:21 Temperature 36.6 C 06/06/25 20:21 Temperature Source Tympanic 06/06/25 20:21 Pulse 96 H 06/06/25 20:21 Respiratory Rate 18 06/06/25 20:24 Respiratory Effort Normal, Non-Labored 06/06/25 20:24 Respiratory Depth Normal 06/06/25 20:24 Respiratory Pattern Normal 06/06/25 20:24 Blood Pressure 270/116 H 06/06/25 20:21 Blood Pressure Position Supine 06/06/25 20:21 Pulse Oximetry 96 06/06/25 20:21 Oxygen Delivery Method Room Air 06/06/25 20:21 Oxygen Flow Rate 0 06/06/25 20:21 Pain Level 6 06/06/25 20:21 Lab/Test Results Lab/Test Results: 06/06/25 20:41 Blood Blood Culture - Pending 06/06/25 20:41 Blood Blood Culture - Pending Medical Decision Making Initial Assessment: 59-year-old male with diabetes presenting with skin wounds and elevated blood pressure. Difficulty obtaining peripheral SpO2, numbness in hand, and lesion by left ear. Differential Diagnosis: Cellulitis, deep space infection/abscess, DKA/HHS, dehydration, electrolyte imbalance, viral illness such as COVID-19. Pt does not meet SIRS criteria. ED Course: - Administered home doses of antihypertensive medications (losartan and amlodipine). - Blood tests conducted. -CT facial ordered to evaluate skin lesion Independently interpreted the following tests: CBC notable for leukocytosis, white cell count 16.67. Mild anemia and thrombocytosis unchanged from baseline. HbA1C 7.4%. VBG reassuring, no acute abnormalities. CMP reassuring, creatinine 1.4, consistent with baseline. Mild hypocalcemia, unchanged from previous. Handoff report given to Dr. Guerrero, overnight attending, CT pending. Patient consented to the use of [facility] PFSH All Active Problems (Updated 02/16/24 @ 00:00 by BIANKA RAO) Bilateral lower extremity edema (Acute) Bilateral leg edema (Acute) Ankylosing spondylitis (Acute) Leukocytosis (Acute) H/O splenectomy (Acute) Hypertension (Chronic) H/O immunosuppressive therapy (Acute) GERD (gastroesophageal reflux disease) (Chronic) Hyperlipidemia (Acute) CAP (community acquired pneumonia) (Acute) Diabetes type 2, uncontrolled (Acute) Medical History (Updated 02/16/24 @ 00:00 by BIANKA RAO) Neuropathy Cough Family History Mother , at age 46 Diabetes Heart disease Father , Age 73 Heart disease Stroke Social History Smoking/Tobacco Use Status: Never Smoking risk assessment performed?: Yes Alcohol Intake: current Alcohol Intake frequency: a few times a week Alcohol type: beer Drug use: Occasionally Substance use type: marijuana Do you feel safe at home: Yes Do you feel safe in your relationship?: Yes
[2025-06-06 21:05] LABS: Abs Immature Grans 0.07 10^3/uL (0.0-0.06); HCT 38.4 % (40.0-50.0); HGB 13.0 g/dL (13.5-17.5); Immature Grans % 0.4 %; MCH 30.4 pg (27.0-33.0); MCHC 33.9 % (32.0-36.0); MCV 90 fL (80-95); MPV 9.1 fL (8.0-11.0); Platelet Count 405 10^3/uL (130-400); RBC 4.28 10^6/uL (4.36-5.78); RDW 12.6 % (11.8-14.1); RDW-SD 41.3 fL; WBC 16.67 10^3/uL (4.4-10.8)
[2025-06-06 21:08] LABS: BE (Venous) 3 mmol/L (-2-3); HCO3 (Venous) 28 mmol/L (23-28); O2 Sat (Venous) 81 %; TCO2 (Venous) 25 mmol/L (24-29); pCO2 (Venous) 43 mmHg (41-51); pO2 (Venous) 41 mmHg
[2025-06-06] MEDS: amLODIPine 5 MG TAB (21:19)
[2025-06-06] MEDS: Losartan 50 MG TAB 100 MG PO (21:19)
[2025-06-06 21:22] LABS: Hemoglobin A1C 7.4 % (<5.7)
[2025-06-06 21:38] LABS: ALT 22 U/L (16-63); AST 19 U/L (15-37); Albumin 2.6 g/dL (3.4-5.0); Alkaline Phosphatase 122 U/L (46-116); Anion Gap 8.6 mmol/L (3-11); BUN 23 mg/dL (7-18); Bilirubin, Total 0.1 mg/dL (0.2-1.0); CO2 27.4 mmol/L (21.0-32.0); Calcium 8.3 mg/dL (8.5-10.1); Chloride 98 mmol/L (98-107); Estimated GFR 58.62 (mL/min/1.73m2); Glucose 276 mg/dL (74-106); Potassium 4.0 mmol/L (3.5-5.1); Sodium 134 mmol/L (136-145); Total Protein 7.0 g/dL (6.4-8.2)
--- NOTE | 2025-06-06 21:52 | DI.RAD_ITS ---
Exam(s) XR HAND LT COMPLETE EXAM: XR HAND LT COMPLETE CLINICAL HISTORY: lesions to L middle finger, palm r/o osteo. TECHNIQUE: 2D digital imaging was performed. Three views. COMPARISON: No exams were available for comparison FINDINGS: BONES: No acute fracture is present. Old 4th and 5th metacarpal fractures. No bony destructive lesion is seen. JOINTS: No dislocation present. Degenerative changes of the interphalangeal joints. SOFT TISSUE: Swelling of the fingers. Mild swelling of the metacarpal region. IMPRESSION: No evidence of osteomyelitis. Soft tissue swelling. The preliminary [facility] report was reviewed. DATA REPOSITORY: RADIATION DOSE DELIVERED:
[2025-06-06 22:06] VITALS: BP 181/110
--- NOTE | 2025-06-06 22:10 | W.EDPROG ---
Date of service: 06/06/25 Time of Service: 22:11 Medical Decision Making This patient was signed out to me. Please see previous notes for H&P and initial eval; in brief 59yo M presenting hx DM presenting with facial cellulitis and poorly healing wound to left hand. Borderline tachycardiac on arrival to 90's, afebrile (he thinks he may have had fevers at home but is not sure). Labs significant for leukoctyosis to 16, otherwise reassuring/baseline. Signed out pending imaging. On my exam he has tenderness, erythema, and induration to his left confucianism consistent with cellulitis or possibly abscess. No mastoiditis. Tip of third digit of left hand with lesion consistent with healing burn, no pustulance or discharge, good movement throughout, mildly TTP, some proximal erythema; exam not suggestive of flexor tenosynovitis or deep space infection though could possibly be early/developing felon- would not I&D at this time. With leukocytosis and borderline tachycardia, will give dose of IV vancomycin while awaiting results of workup. Given no clear true fevers and is hypertensive (improved after home medications earlier); would not give IV fluids. -CT independently reviewed; no clear abscess on my view, radiology read with 2.2 x 1.2 x 2.2 pre-auricular SQ abscess. -XR independently reviewed; no displaced fracture on my view, radiology read with no acute findings. -UA not infected; proteinuria present and at baseline on [facility] record review. I am not concerned for hypertensive crisis in this pt and his BP has already decreased dramatically with home meds; would not give further antihypertensives at this time. Patient with poor medical followup, poorly controlled diabetes and not checking his blood sugars at home, in generally poorly adherent to care, and now with significant facial cellulitis and abscess would benefit from hospital stay for course of IV abx. Given cosmetically sensitive facial abscess would get non-emergent surgery consult for I&D. Discussed with [facility] hospitalist Dr. Carreon; pt accepted to medicine service for further workup and management. Awaiting orders and transfer to the floor. CT: IMPRESSION: Left pre-auricular subcutaneous abscess as above. No underlying bony abnormality. The left auditory canal has a normal appearance. XR: IMPRESSION: No findings to suggest acute osteomyelitis. Please note, plain film is less sensitive for the acute phases of osteomyelitis. If there is high clinical suspicion for acute osteomyelitis, nuclear medicine bone scan or MRI with contrast is recommended to further characterize findings. Lab Data Lab results reviewed: Yes I reviewed the patient's lab results. Labs: 06/06/25 21:10 Blood Blood Culture - Pending 06/06/25 20:59 Blood Blood Culture - Pending Laboratory Tests Range/Units 06/06/25 20:59 WBC (4.4-10.8) 10^3/uL 16.67 H RBC (4.36-5.78) 10^6/uL 4.28 L Hgb (13.5-17.5) g/dL 13.0 L Hct (40.0-50.0) % 38.4 L MCV (80-95) fL 90 MCH (27.0-33.0) pg 30.4 MCHC (32.0-36.0) % 33.9 RDW (11.8-14.1) % 12.6 Plt Count (130-400) 10^3/uL 405 H MPV (8.0-11.0) fL 9.1 Immature Gran % % 0.4 Neutrophils % % 66.6 Lymphocytes % % 23.9 Monocytes % % 7.9 Eosinophils % % 0.9 Basophils % % 0.3 Nucleated RBC % (0.0-0.3) % 0.0 Absolute Neutrophils (1.2-6.7) 10^3/uL 11.10 H Absolute Lymphocytes (1.2-3.4) 10^3/uL 3.98 H Absolute Monocytes (0.1-0.8) 10^3/uL 1.32 H Absolute Eosinophils (0.0-0.7) 10^3/uL 0.15 Absolute Basophils (0.0-0.2) 10^3/uL 0.05 VBG pH (7.31-7.41) 7.42 H VBG pCO2 (41-51) mmHg 43 VBG pO2 mmHg 41 VBG HCO3 (23-28) mmol/L 28 VBG Total CO2 (24-29) mmol/L 25 VBG O2 Saturation % 81 VBG Base Excess (-2-3) mmol/L 3 VBG Lactate (<or=2.0) mmol/L 1.7 Sodium (136-145) mmol/L 134 L Potassium (3.5-5.1) mmol/L 4.0 Chloride (98-107) mmol/L 98 Carbon Dioxide (21.0-32.0) mmol/L 27.4 Anion Gap (3-11) mmol/L 8.6 BUN (7-18) mg/dL 23 H Creatinine (0.70-1.30) mg/dL 1.4 H Est GFR (CKD-EPI 2020) (mL/min/1.73m2) 58.62 Glucose (74-106) mg/dL 276 H Hemoglobin A1c (<5.7) % 7.4 H Calcium (8.5-10.1) mg/dL 8.3 L Total Bilirubin (0.2-1.0) mg/dL 0.1 L AST (15-37) U/L 19 ALT (16-63) U/L 22 Alkaline Phosphatase (46-116) U/L 122 H Total Protein (6.4-8.2) g/dL 7.0 Albumin (3.4-5.0) g/dL 2.6 L Discharge Plan Disposition Patient Disposition: Admit to [facility] Discharge Details Clinical Impression: Abscess of face, Leukocytosis, Diabetes mellitus, Hypertension Primary Care Provider: Darcie Willis ED Provider: Hilaria Guerrero Home Meds and New Rx's Prescriptions: No Action pravastatin 40 MG tablet 40 mg PO DAILY amlodipine 10 MG tablet 1 tab PO DAILY losartan 100 MG tablet 1 tab PO DAILY metformin 500 MG tablet extended release 24hr 1 tab PO DAILY Simponi 50 MG/0.5 ML syringe 0.5 ml PO .monthly mupirocin 2 % ointment 1 applic topical BID Qty: 15 0RF sildenafil [Viagra] 50 mg Tablet See Rx Instructions .ROUTE .COMPLEX Rx Instructions: please see pcp note spironolactone 25 mg tablet 1 mg PO DAILY nortriptyline 25 mg capsule See Rx Instructions .ROUTE .COMPLEX Patient Comments: TAKE ONE CAPSULE BY MOUTH EVERY NIGHT Rx Instructions: please see PCP note on RX minocycline 50 mg capsule See Rx Instructions .ROUTE .COMPLEX Patient Comments: TAKE ONE CAPSULE BY MOUTH EVERY DAY Rx Instructions: please see PCP note on RX furosemide [Lasix] 20 mg tablet See Rx Instructions .ROUTE .COMPLEX Patient Comments: TAKE ONE TABLET BY MOUTH EVERY DAY Rx Instructions: please see PCP note on RX dextroamphetamine-amphetamine [Adderall XR] 30 mg Capsule,Extended Release 24hr 1 cap PO BID naproxen 500 mg tablet See Rx Instructions .ROUTE .COMPLEX Patient Comments: TAKE ONE TABLET BY MOUTH TWICE A DAY NEEDED Rx Instructions: please see PCP note on RX (DME) pen needle, diabetic [BD Jody 2nd Gen Pen Needle] 32 gauge x needle MISCELLANEOUS Patient Comments: USE ONE DAILY NEEDED Ozempic 2 mg/dose (8 mg/3 mL) pen injector See Rx Instructions .ROUTE .COMPLEX PRN Patient Comments: INJECT 2MG UNDER THE SKIN WEEKLY Rx Instructions: please see PCP note on RX albuterol sulfate 90 mcg/actuation HFA aerosol inhaler 2 puff IH Q6H PRN (Reason: shortness of breath or wheezing) Qty: 6.7 0RF insulin glargine [Basaglar KwikPen U-100 Insulin] 100 unit/mL (3 mL) insulin pen See Rx Instructions .ROUTE .COMPLEX Qty: 15 1RF Rx Instructions: please see PCP note on RX
[2025-06-06] MEDS: Normal Saline Flush 10 ML SYR IVP (22:35)
[2025-06-06] MEDS: Normal Saline - Diluent 50 ML VIAL IJ (22:35)
[2025-06-06] MEDS: Omnipaque 350 MG/ML 100 ML BTL IJ (22:35)
[2025-06-06] MEDS: VANCOMYCIN 1,500 MG in Normal Saline 250 ML 166.6666 MG IVPB (23:00)
--- NOTE | 2025-06-06 23:52 | DI.[facility]_ITS ---
PROCEDURE INFORMATION: Exam: XR Left Hand Exam date and time: 06/06/2025 10:49 PM Age: 59 years old Clinical indication: Other: Lesions to L middle finger, palm R/O osteo TECHNIQUE: Imaging protocol: Radiologic exam of the left hand. Views: 3 or more views. COMPARISON: US EXTREMITY VENOUS BI 02/07/2021 1:42 PM FINDINGS: Bones/joints: Severe degenerative changes are present at the 1st CMC joint. Healed fracture deformities are present within the distal 4th and 5th metacarpals. No acute fracture or dislocation. No suspicious bony lesions. Soft tissues: Unremarkable. IMPRESSION: No findings to suggest acute osteomyelitis. Please note, plain film is less sensitive for the acute phases of osteomyelitis. If there is high clinical suspicion for acute osteomyelitis, nuclear medicine bone scan or MRI with contrast is recommended to further characterize findings. Dictated and Authenticated by: Melita Cordero MD. Orderin Guy Mera MD
--- NOTE | 2025-06-06 23:57 | DI.[facility]_ITS ---
PROCEDURE INFORMATION: Exam: CT Maxillofacial With Contrast Exam date and time: 06/06/2025 10:35 PM Age: 59 years old Clinical indication: Other: Wound to L adventist, significant pain; Additional info: Wound to L adventist, significant pain. PT sts diabetic TECHNIQUE: Imaging protocol: Computed tomography of the face with contrast. Contrast material: OMNI 350; Contrast volume: 100 ml; Contrast route: INTRAVENOUS (IV); COMPARISON: No relevant prior studies available. FINDINGS: Paranasal sinuses: No air-fluid levels. Orbital cavities: Orbits are normal. Globes are unremarkable. Auditory system: The left auditory canal has a normal appearance and appears widely patent. Bones: No acute fracture. Soft tissues: Focal subcutaneous hyperemia and skin thickening is present within the left pre-auricular soft tissues. A heterogeneous rim enhancing fluid collection is present centrally which measures 2.2 x 1.2 x 2.2 cm. IMPRESSION: Left pre-auricular subcutaneous abscess as above. No underlying bony abnormality. The left auditory canal has a normal appearance. Dictated and Authenticated by: Melita Cordero MD. Orderin Guy Mera MD
[2025-06-07] VITALS (7 sets, daily range): BP systolic 132–167; BP diastolic 80–86; PULSE 69–85; RESP 16–19; TEMP 36.3–37.1; O2SAT 94–97
[2025-06-07 00:08] LABS: Glucose Negative (Negative)
[2025-06-07 00:13] LABS: C & S Indicated? No; RBC 0-2 HPF (0-2); WBC Negative HPF (0-5)
[2025-06-07] MEDS: Acetaminophen 500 MG TAB 1000 MG PO (00:25)
[2025-06-07] MEDS: Ketorolac 15 MG/ML VIAL IVP ×3 (00:26→12:11)
[2025-06-07 00:37] LABS: COVID-19 PCR Negative (Negative); RSV PCR Negative (Negative)
--- NOTE | 2025-06-07 00:37 | W.PM.HP.N ---
Date of service: 06/07/25 Time of Service: 01:40 Assessment and Plan Assessment and plan (1) Abscess of face: Status: Acute Assessment and plan: High risk infection in patient with splenectomy, immune suppression, and possibly poor outpatient follow up (or recent estrangement) I agree with MRSA coverage with abscess. Surgical consult for I&D, NPO for now just in case though may be bedside procedure (2) Sepsis: Status: Acute Assessment and plan: Meets criteria with elevated pulse and WBC with acute infection. Give a liter of fluid now, blood cultures pending See above (3) Hypertension: Status: Chronic Assessment and plan: Continue outpatient therapy, need to confirm with good medication reconciliation. (4) Diabetes mellitus: Status: Chronic Assessment and plan: A1c 7.4% represents reasonable though not ideal control on mefformin, GLP-[address] with contrast Clarify insulin use at home. ISS for now. (5) Ankylosing spondylitis: Status: Acute Assessment and plan: Was on immune modulation, confirm current therapy Was getting daily opioid therapy with oxycodone, VPMS suggests he was tapered, with last script in early April for only 1 week. This is likely complicating his pain management. (6) Renal insufficiency: Status: Chronic Assessment and plan: Unclear if this is near baseline or mild REJI. He is getting NSAIDs. Follow, IV fluids while NPO (7) Burn of finger and thumb of left hand, third degree: Status: Acute Assessment and plan: unrelated to presentation. related to neuropathy. Does not look infected. wound care. (8) ADHD: Assessment and plan: Previously on stimulant therapy, PCP stopped regular prescriptions in March 2025. Will hold this for now, clarify history. (9) DVT prophylaxis: Status: Acute Assessment and plan: enoxparin (10) Discharge planning issues: Status: Acute Assessment and plan: likely 48 hour admission for IV antibiotics until cellulitis clearly improving History of Present Illness History of Present Illness Chief Complaint: facial swelling Narrative: 59 yo M with history of type 2 DM, splenectomy, ankylosing spondylitis on immune modulating therapy, chronic pain formerly on chronic opioid therapy who presented with 4-5 days of progressive pain and swelling in the left voodoo area. Started with what felt like a bug bite in the area. Redness has slowly increased, then more notable swelling the day he presented. He hasn't had fever/chills, no n/v, appetite okay though it does hurt to chew. He does not have a known history of MRSA. Review of Systems All systems reviewed & are unremarkable except as noted in HPI and below PFSH All Active Problems (Updated 06/07/25 @ 01:30 by Sarwat Carreon) Burn of finger and thumb of left hand, third degree (Acute) Sepsis (Acute) Discharge planning issues (Acute) DVT prophylaxis (Acute) Renal insufficiency (Chronic) Hypertension (Chronic) Diabetes mellitus (Chronic) Leukocytosis (Acute) Abscess of face (Acute) Bilateral lower extremity edema (Acute) Bilateral leg edema (Acute) Ankylosing spondylitis (Acute) Leukocytosis (Acute) H/O splenectomy (Acute) Hypertension (Chronic) H/O immunosuppressive therapy (Acute) GERD (gastroesophageal reflux disease) (Chronic) Hyperlipidemia (Acute) CAP (community acquired pneumonia) (Acute) Diabetes type 2, uncontrolled (Acute) Medical History (Updated 06/07/25 @ 01:30 by Sarwat Carreon) ADHD Neuropathy Cough Surgical History (Updated 06/07/25 @ 01:22 by Sarwat Carreon) History of surgery on upper extremity History of ankle surgery left, trauma S/P splenectomy Family History Mother , at age 46 Diabetes Heart disease Father , Age 73 Heart disease Stroke Social History (Updated 06/07/25 @ 01:24 by Sarwat Carreon) Smoking/Tobacco Use Status: Never Smoking risk assessment performed?: Yes Alcohol Intake: current Alcohol Intake frequency: a few times a week Alcohol type: beer Drug use: Occasionally Substance use type: marijuana Housing: other Do you feel safe at home: Yes Do you feel safe in your relationship?: Yes Additional Social history: lives alone in [place], family is close. On SSDI with left arm neuropathy Meds Allergies and Home Medications Allergies Allergy/AdvReac Type Severity Reaction Status Date / Time No Known Allergies Allergy Unverified 01/16/24 13:59 Home Medications ?Medication ?Instructions ?Recorded ?Confirmed ?Type amlodipine 10 mg tablet 1 tab PO DAILY 01/31/16 06/07/25 History golimumab 50 mg/0.5 mL 0.5 ml PO .monthly 01/31/16 06/07/25 History subcutaneous syringe (Simponi) losartan 100 mg tablet 1 tab PO DAILY 01/31/16 06/07/25 History albuterol sulfate 90 mcg/actuation 2 puff inhalation Q6H PRN 01/16/23 06/07/25 Rx aerosol inhaler shortness of breath or wheezing #6.7 grams dextroamphetamine-amphetamine ER 1 cap PO BID 01/16/23 06/07/25 History 30 mg 24hr capsule,extend release (Adderall XR) furosemide 20 mg tablet (Lasix) 20 mg PO DAILY 01/16/23 06/07/25 History naproxen 500 mg tablet 500 mg PO BID PRN pain 01/16/23 06/07/25 History nortriptyline 25 mg capsule 25 mg PO QHS 01/16/23 06/07/25 History pen needle, diabetic 32 gauge x 01/16/23 06/06/25 History (BD Jody 2nd Gen Pen Needle) semaglutide 2 mg/dose (8 mg/3 mL) See Rx Instructions .Route 01/16/23 06/07/25 History subcutaneous pen injector ([id number]) .COMPLEX PRN spironolactone 25 mg tablet 25 mg PO DAILY 01/16/23 06/07/25 History mupirocin 2 % topical ointment 1 applic topical BID #15 grams 01/16/24 06/07/25 Rx atorvastatin 80 mg tablet 80 mg PO DAILY 06/07/25 06/07/25 History calcipotriene 0.005 % scalp 1 applic topical BID 06/07/25 06/07/25 History solution clindamycin phosphate 1 % lotion 1 applic topical BID 06/07/25 06/07/25 History insulin degludec 100 unit/mL (3 55 unit subcut BID 06/07/25 06/07/25 History mL) subcutaneous pen metformin 500 mg tablet,extended 1,000 mg PO BID 06/07/25 06/07/25 History release 24 hr nystatin 100,000 unit/gram topical 1 applic topical BID PRN 06/07/25 06/07/25 History powder ondansetron HCl 4 mg tablet 4 mg PO Q8H PRN nausea and vomiting 06/07/25 06/07/25 History sildenafil 100 mg tablet 100 mg PO DAILY PRN sexual activity 06/07/25 06/07/25 History triamcinolone acetonide 0.5 % 1 applic topical BID PRN 06/07/25 06/07/25 History topical cream Exam Narrative Exam Narrative: GEN: Alert and oriented x 4, somewhat dishevelved, but pleasant and cooperative, gives linear history. No acute distress at rest. HEENT: Head atraumatic. Conjunctiva clear, slight swelling right lower lid, no icterus. PEERL, EOMI. no rhinorrhea. Tender swelling and redness left voodoo, no drainage but some central crust. MMM, OP benign, no trismus. Neck is supple with no masses or lymphadenopathy (other than possibly preauricular on left), trachea midline LUNGS: CTAB with normal effort CV: RRR with no murmurs, gallops, or rubs. ABD: active bowel sounds, soft, nontender and nondistended. No masses. EXT: no cyanosis, clubbing, or edema. Left UE is atrophied. MSK: No joint redness or swelling NEURO: CN 2-12 grossly intact. Paralysis/lack of sensation to touch left UE, other extremities intact. Normal speech and coordination. No tremor SKIN: No rashes or open wounds other than left voodoo. PSYCH: normal mood and affect, normal thought process Results Imaging Imaging Studies: CT face: report reviewed, 2.2cm abscess left pre-aurcular Labs 06/07/25 06:28 06/07/25 06:28 Labs: Laboratory Results - last 24 hr 06/06/25 06/07/25 20:59 00:00 WBC 16.67 H RBC 4.28 L Hgb 13.0 L Hct 38.4 L MCV 90 MCH 30.4 MCHC 33.9 RDW 12.6 Plt Count 405 H MPV 9.1 Immature Gran % 0.4 Neutrophils % 66.6 Lymphocytes % 23.9 Monocytes % 7.9 Eosinophils % 0.9 Basophils % 0.3 Nucleated RBC % 0.0 Absolute Neutrophils 11.10 H Absolute Lymphocytes 3.98 H Absolute Monocytes 1.32 H Absolute Eosinophils 0.15 Absolute Basophils 0.05 VBG pH 7.42 H VBG pCO2 43 VBG pO2 41 VBG HCO3 28 VBG Total CO2 25 VBG O2 Saturation 81 VBG Base Excess 3 VBG Lactate 1.7 Sodium 134 L Potassium 4.0 Chloride 98 Carbon Dioxide 27.4 Anion Gap 8.6 BUN 23 H Creatinine 1.4 H Est GFR (CKD-EPI 2020) 58.62 Glucose 276 H Hemoglobin A1c 7.4 H Calcium 8.3 L Total Bilirubin 0.1 L AST 19 ALT 22 Alkaline Phosphatase 122 H Total Protein 7.0 Albumin 2.6 L Urine Color Yellow Urine Clarity Clear Urine pH 6.0 Ur Specific [place] 1.010 Urine Protein 100 H Urine Ketones Negative Urine Blood Trace-intact H Urine Nitrite Negative Urine Bilirubin Negative Urine Urobilinogen 0.2 Ur Leukocyte Esterase Negative Urine RBC 0-2 Urine WBC Negative Ur Epithelial Cells Rare Urine Crystals Negative Urine Bacteria Rare Urine Casts Negative Urine Mucus Negative Ur Culture Indicated? No Urine Glucose Negative Last Vital Signs Temp 36.6 C 06/06/25 20:21 Pulse 96 H 06/06/25 20:21 Resp 18 06/06/25 20:24 BP 181/110 H 06/06/25 22:06 Pulse Ox 96 06/06/25 20:21 Time Spent Time spent with Patient: 55-74 minutes Time was spent: preparing to see the patient(eg.review tests), obtaining and/or reviewing separately otained hiistory, ordering medications,tests, procedures, referring, communicating with other health floor care specialist, indepentently interpreting results, counseling the patient and care coordination
[2025-06-07 00:48] LABS: Cannabinoids THC Positive (Negative); METHADONE URINE SCREEN Negative (Negative)
--- NOTE | 2025-06-07 01:02 | TELEP.MEDR_ITS ---
Date of service: 06/07/25 Time of Service: 01:02 Telepharmacy Home Med Rec Allergies Allergies: No Known Allergies Allergy (Unverified 01/16/24 13:59) Interview Person Interviewed: * Patient Quality Quality of Interview/Accuracy of Medication List: Excellent Sources Sources used to compile medication list: [employer] Medication List, Patient List and [employer] Changes made to Home Medication List: ADDITIONS: * Spironolactone 25mg PO daily * Nortiptyline 25mg PO HS * Metformin 1000mg PO BID * Atorvastatin 80mg PO daily DELETIONS: * Propranolol * PRavastatin CHANGES: * Insulin Degludec 55 units SC BID (changed from 50 units SC BID) Additional Notes Additional Notes: * Patient had not taken any of his medication for a couple of weeks. Recommended Changes Recommended Changes(reason for recommendation): * none Attestation: The home medication list is now updated to the best of my knowledge and is ready to be reconciled by the provider. [facility] contact [facility] Pharmacist at for any questions.
--- NOTE | 2025-06-07 01:02 | TELEP.MEDREC ---
Date of service: 06/07/25 Time of Service: 01:02 Telepharmacy Home Med Rec Allergies Allergies: No Known Allergies Allergy (Unverified 01/16/24 13:59) Interview Person Interviewed: Patient Quality Quality of Interview/Accuracy of Medication List: Excellent Sources Sources used to compile medication list: [employer] Medication List, Patient List and [employer] Changes made to Home Medication List: ADDITIONS: Spironolactone 25mg PO daily Nortiptyline 25mg PO HS Metformin 1000mg PO BID Atorvastatin 80mg PO daily DELETIONS: Propranolol PRavastatin CHANGES: Insulin Degludec 55 units SC BID (changed from 50 units SC BID) Additional Notes Additional Notes: Patient had not taken any of his medication for a couple of weeks. Recommended Changes Recommended Changes(reason for recommendation): none Attestation: The home medication list is now updated to the best of my knowledge and is ready to be reconciled by the provider. Please contact the [facility] Medication Reconciliation Pharmacist at for any questions.
[2025-06-07] MEDS: Lactated Ringers 1,000 ML 1000 ML IV (04:50)
[2025-06-07] MEDS: Dextrose 50%-Water 25 GM/50 ML SYR IVP ×2 (04:57→11:32)
[2025-06-07] MEDS: oxyCODONE 5 MG TAB PO ×3 (05:53→19:52)
[2025-06-07] MEDS: Lactated Ringers 1,000 ML 80 ML IV ×2 (05:59→18:56)
--- NOTE | 2025-06-07 06:38 | W.PC.ACHO ---
Registration Status: ADM SONAL Primary Language: Preferred Language: Maltese ED Information & Data Chief Complaint GenMedical 06/06/25 21:20 Triage Note Pt arrives to the ED with 06/06/25 20:21 multiple complaints. Pt states he is a diabetic, and has not checked a sugar in over a month due to his machine being broken. He has several sores on fingers and face. Medical / Surgical History (Last Updated 06/07/25 @ 00:40 by Sarwat Carreon) ADHD Cough Neuropathy (Last Updated 06/07/25 @ 01:22 by Sarwat Carreon) History of ankle surgery History of surgery on upper extremity S/P splenectomy Most Recent Vital Signs Temperature 37.1 C 06/07/25 01:35 Temperature Source Temporal Artery Scan 06/07/25 01:25 Pulse 76 06/07/25 01:35 Pulse Rhythm Regular 06/07/25 01:35 Respiratory Rate 16 06/07/25 01:35 Respiratory Effort Normal, Non-Labored 06/07/25 01:35 Respiratory Depth Normal 06/07/25 01:35 Respiratory Pattern Normal 06/07/25 01:35 Blood Pressure 167/86 H 06/07/25 01:35 Blood Pressure Mean 113 06/07/25 01:25 Blood Pressure Position Supine 06/06/25 20:21 Pulse Oximetry 96 06/07/25 01:35 Oxygen Delivery Method Room Air 06/07/25 01:35 Oxygen Flow Rate 0 06/07/25 01:35 Pain Level 6 06/07/25 05:53 Allergies No Known Allergies Allergy (Unverified 01/16/24 13:59) Precautions Isolation Standard precaution 06/06/25 20:24 Active Medications Generic Name Dose Route Start Last Admin Trade Name Freq PRN Reason Stop Dose Admin Dextrose/Water 0 gm 06/07/25 00:43 06/07/25 04:57 Dextrose 50%-Water 25 Gm/50 Ml Syr IVP 12.5 gm DIRECTED PRN Administration Ringer's Solution 1,000 mls @ 80 mls/hr 06/07/25 00:30 06/07/25 05:59 IV 80 mls/hr INFUSION JOSE R Administration Iohexol 100 ml 06/06/25 22:45 06/06/25 22:35 Omnipaque 350 Mg/Ml 100 Ml Btl IJ 07/06/25 23:59 100 ml DIRECTED JOSE R Administration Ketorolac Tromethamine 15 mg 06/07/25 00:23 06/07/25 05:20 Ketorolac 15 Mg/Ml Vial IVP 06/12/25 00:22 15 mg Q6H PRN PRN Administration Oxycodone HCl 5 mg 06/07/25 00:23 06/07/25 05:53 Oxycodone 5 Mg Tab PO 5 mg Q4H PRN PRN Administration Sodium Chloride 50 ml 06/06/25 22:45 06/06/25 22:35 Normal Saline - Diluent 50 Ml Vial IJ 50 ml DIRECTED JOSE R Administration Sodium Chloride 0 ml 06/06/25 22:34 06/06/25 22:35 Normal Saline Flush 10 Ml Syr IVP 10 ml PRN PRN Administration IV IV Catheter Type [Right Peripheral IV Antecubital] IV Catheter Gauge [Right 18 Antecubital] Diet Orders Category Date Time Status Diabetes Consistent CHO/Heart Healthy [DIET] Nutrition 06/07/25 Breakfast Active Nothing Per Oral [DIET] Nutrition 06/07/25 00:29 Active Diagnostics 06/07/25 06/07/25 06/06/25 Range/Units 05:35 00:00 23:10 WBC Pending (4.4-10.8) 10^3/uL RBC Pending (4.36-5.78) 10^6/uL Hgb Pending (13.5-17.5) g/dL Hct Pending (40.0-50.0) % MCV Pending (80-95) fL MCH Pending (27.0-33.0) pg MCHC Pending (32.0-36.0) % RDW Pending (11.8-14.1) % Plt Count Pending (130-400) 10^3/uL MPV Pending (8.0-11.0) fL Immature Gran % % Neutrophils % % Lymphocytes % % Monocytes % % Eosinophils % % Basophils % % Nucleated RBC % (0.0-0.3) % Absolute Neutrophils (1.2-6.7) 10^3/uL Absolute Lymphocytes (1.2-3.4) 10^3/uL Absolute Monocytes (0.1-0.8) 10^3/uL Absolute Eosinophils (0.0-0.7) 10^3/uL Absolute Basophils (0.0-0.2) 10^3/uL VBG pH (7.31-7.41) VBG pCO2 (41-51) mmHg VBG pO2 mmHg VBG HCO3 (23-28) mmol/L VBG Total CO2 (24-29) mmol/L VBG O2 Saturation % VBG Base Excess (-2-3) mmol/L VBG Lactate (<or=2.0) mmol/L Sodium Pending (136-145) mmol/L Potassium Pending (3.5-5.1) mmol/L Chloride Pending (98-107) mmol/L Carbon Dioxide Pending (21.0-32.0) mmol/L Anion Gap Pending (3-11) mmol/L BUN Pending (7-18) mg/dL Creatinine Pending (0.70-1.30) mg/dL Est GFR (CKD-EPI 2020) Pending (mL/min/1.73m2) Glucose Pending (74-106) mg/dL Hemoglobin A1c (<5.7) % Calcium Pending (8.5-10.1) mg/dL Total Bilirubin (0.2-1.0) mg/dL AST (15-37) U/L ALT (16-63) U/L Alkaline Phosphatase (46-116) U/L Total Protein (6.4-8.2) g/dL Albumin (3.4-5.0) g/dL Urine Color Yellow (Yellow) Urine Clarity Clear (Clear) Urine pH 6.0 (5-8) Ur Specific [place] 1.010 (1.005-1.025) Urine Protein 100 H (Neg-Trace) mg/dL Urine Ketones Negative (Negative) mg/dL Urine Blood Trace-intact H (Negative) Urine Nitrite Negative (Negative) Urine Bilirubin Negative (Negative) Urine Urobilinogen 0.2 (Up to 0.2) mg/dL Ur Leukocyte Esterase Negative (Negative) Urine RBC 0-2 (0-2) HPF Urine WBC Negative (0-5) HPF Ur Epithelial Cells Rare (Negative) HPF Urine Crystals Negative (Negative) HPF Urine Bacteria Rare (Negative) HPF Urine Casts Negative (Negative) LPF Urine Mucus Negative (Negative) Ur Culture Indicated? No Urine Glucose Negative (Negative) mg/dL Urine Opiates Screen Negative (Negative) Urine Methadone Screen Negative (Negative) Ur Barbiturates Screen Negative (Negative) Ur Tricyclics Screen Negative (Negative) Ur Amphetamines Screen Negative (Negative) U Benzodiazepines Scrn Negative (Negative) Urine Cocaine Screen Positive A (Negative) Ur THC Screen Positive A (Negative) COVID-19 Source Nasopharynx SARS-CoV-2 (PCR) Negative (Negative) Influenza Type A (PCR) Negative (Negative) Influenza Type B (PCR) Negative (Negative) RSV (PCR) Negative (Negative) 06/06/25 Range/Units 20:59 WBC 16.67 H (4.4-10.8) 10^3/uL RBC 4.28 L (4.36-5.78) 10^6/uL Hgb 13.0 L (13.5-17.5) g/dL Hct 38.4 L (40.0-50.0) % MCV 90 (80-95) fL MCH 30.4 (27.0-33.0) pg MCHC 33.9 (32.0-36.0) % RDW 12.6 (11.8-14.1) % Plt Count 405 H (130-400) 10^3/uL MPV 9.1 (8.0-11.0) fL Immature Gran % 0.4 % Neutrophils % 66.6 % Lymphocytes % 23.9 % Monocytes % 7.9 % Eosinophils % 0.9 % Basophils % 0.3 % Nucleated RBC % 0.0 (0.0-0.3) % Absolute Neutrophils 11.10 H (1.2-6.7) 10^3/uL Absolute Lymphocytes 3.98 H (1.2-3.4) 10^3/uL Absolute Monocytes 1.32 H (0.1-0.8) 10^3/uL Absolute Eosinophils 0.15 (0.0-0.7) 10^3/uL Absolute Basophils 0.05 (0.0-0.2) 10^3/uL VBG pH 7.42 H (7.31-7.41) VBG pCO2 43 (41-51) mmHg VBG pO2 41 mmHg VBG HCO3 28 (23-28) mmol/L VBG Total CO2 25 (24-29) mmol/L VBG O2 Saturation 81 % VBG Base Excess 3 (-2-3) mmol/L VBG Lactate 1.7 (<or=2.0) mmol/L Sodium 134 L (136-145) mmol/L Potassium 4.0 (3.5-5.1) mmol/L Chloride 98 (98-107) mmol/L Carbon Dioxide 27.4 (21.0-32.0) mmol/L Anion Gap 8.6 (3-11) mmol/L BUN 23 H (7-18) mg/dL Creatinine 1.4 H (0.70-1.30) mg/dL Est GFR (CKD-EPI 2020) 58.62 (mL/min/1.73m2) Glucose 276 H (74-106) mg/dL Hemoglobin A1c 7.4 H (<5.7) % Calcium 8.3 L (8.5-10.1) mg/dL Total Bilirubin 0.1 L (0.2-1.0) mg/dL AST 19 (15-37) U/L ALT 22 (16-63) U/L Alkaline Phosphatase 122 H (46-116) U/L Total Protein 7.0 (6.4-8.2) g/dL Albumin 2.6 L (3.4-5.0) g/dL Urine Color (Yellow) Urine Clarity (Clear) Urine pH (5-8) Ur Specific [place] (1.005-1.025) Urine Protein (Neg-Trace) mg/dL Urine Ketones (Negative) mg/dL Urine Blood (Negative) Urine Nitrite (Negative) Urine Bilirubin (Negative) Urine Urobilinogen (Up to 0.2) mg/dL Ur Leukocyte Esterase (Negative) Urine RBC (0-2) HPF Urine WBC (0-5) HPF Ur Epithelial Cells (Negative) HPF Urine Crystals (Negative) HPF Urine Bacteria (Negative) HPF Urine Casts (Negative) LPF Urine Mucus (Negative) Ur Culture Indicated? Urine Glucose (Negative) mg/dL Urine Opiates Screen (Negative) Urine Methadone Screen (Negative) Ur Barbiturates Screen (Negative) Ur Tricyclics Screen (Negative) Ur Amphetamines Screen (Negative) U Benzodiazepines Scrn (Negative) Urine Cocaine Screen (Negative) Ur THC Screen (Negative) COVID-19 Source SARS-CoV-2 (PCR) (Negative) Influenza Type A (PCR) (Negative) Influenza Type B (PCR) (Negative) RSV (PCR) (Negative) 06/06/25 21:10 Blood Culture - Pending Blood 06/06/25 20:59 Blood Culture - Pending Blood [id number] Documentation Fingerstick Glucose Start: 06/06/25 20:29 Freq: .Stat Status: Active Protocol: Activity Type Activity Date Activity User E-sign Co-sign Detail Recorded Client Recorded Date Recorded By Document 06/07/25 05:28 AB [id number] 06/07/25 05:28 AB Fingerstick Glucose Start: 06/07/25 00:43 Freq: Q6H Status: Active Protocol: Activity Type Activity Date Activity User E-sign Co-sign Detail Recorded Client Recorded Date Recorded By Document 06/07/25 05:11 BKG DAEMON(10) [id number] 06/07/25 05:12 BKG DAEMON(10) Intake and Output - 24 Hour Total 06/06/25 20:14 thru 06/07/25 06:06 Intake Total 1260 Balance 1260 Weight 96.7 kg Intake: IV 1260 Oral 0 Other: Urine Color Yellow Urine Appearance Clear Comment Pt reports he voided to toilet independently, did not collect. Falls Risk Assessment History of Falls No History 06/07/25 01:35 Contributing Factors No Factors 06/07/25 01:35 Ambulatory Aids Independent 06/07/25 01:35 Tubes/Lines None 06/07/25 01:35 Gait Evaluation No gait disturbance 06/07/25 01:35 Cognition No cognitive impairment 06/07/25 01:35 Fall Total Score 0 06/07/25 01:35 Level of Risk Standard/Low Risk 06/07/25 01:35 Problems (Last Updated 06/07/25 @ 00:40 by Sarwat Carreon) Abscess of face (Acute) Ankylosing spondylitis (Acute) Burn of finger and thumb of left hand, third degree (Acute) Diabetes mellitus (Chronic) Discharge planning issues (Acute) DVT prophylaxis (Acute) Hypertension (Chronic) Renal insufficiency (Chronic) Sepsis (Acute) v v v v v v v v v Sending and/or Receiving Nurses: Please use comment section below to note any information pertinent to the patient hand-off not included above. Information / Comments: Called for report 01:00. Pt arrived to ED with complaint of pain related to sore on his left holiness and left hand and fingers. Imaging revealed pre-auricular subcutaneous abscess with no bone involvement or osteomyelitis. Received vancomycin in ED. Pt has poorly controlled DM and depressed immunity d/t splenectomy. He also reports having not taken his HTN medication today. Pt demonstrated UA positive for marijuana and cocaine. A&Ox3, maintaining O2 sat on RA, mobilizes independently. Pt arrived to floor 00:24. Report received from: CARLA Perez RN
[2025-06-07 06:46] LABS: HCT 38.6 % (40.0-50.0); HGB 13.1 g/dL (13.5-17.5); MCH 31.0 pg (27.0-33.0); MCHC 33.9 % (32.0-36.0); MCV 91 fL (80-95); MPV 9.2 fL (8.0-11.0); Platelet Count 409 10^3/uL (130-400); RBC 4.23 10^6/uL (4.36-5.78); RDW 12.7 % (11.8-14.1); RDW-SD 41.5 fL; WBC 13.37 10^3/uL (4.4-10.8)
[2025-06-07 07:00] LABS: Anion Gap 6.8 mmol/L (3-11); BUN 19 mg/dL (7-18); CO2 27.2 mmol/L (21.0-32.0); Calcium 8.4 mg/dL (8.5-10.1); Chloride 105 mmol/L (98-107); Estimated GFR 70.53 (mL/min/1.73m2); Glucose 63 mg/dL (74-106); Potassium 3.9 mmol/L (3.5-5.1); Sodium 139 mmol/L (136-145)
--- NOTE | 2025-06-07 08:33 | PDOC.CMIN ---
Date of service: 06/07/25 Time of Service: 08:33 Care Management Initial Assmt Initial Assessment Reason for Hospitalization: superficial abscess on his left scal Functional Status/Living Situation Patient Presentation: Ervin was sitting up in bed when CM met with him. He was alert, pleasant and easily engaged in conversation. He was admitted for an abscess above his left ear which has since been drained. He lives alone in [place]. He is independent with his ADL's and reports that he could drive if he had a car that worked. He uses [facility] for transportation, but also reports that his son Butch lives nearby and is very supportive. Per pt, he is disabled as a result of chronic hip issues and receives SSDI. Ervin states that his son is planning to help him with dressing changes after discharge. Town of Residence: [place] Significant Other/Family: Local (Son Butch) Employment Status: Disabled Instrumental Activities of Daily Living (ADLs): Independent Medications Medication Management: No Issues/Barriers identified Physical Functioning/Mobility Assistive Device: None Advance Directives Advance Directives: Do you have an Advance Directive: N 01/31/16, 12:37 AD On File at [facility]: N 01/31/16, 12:37 Date Asked 06/06/25 06/06/25, 20:23 AD Date Reviewed COLST On File at [facility] No 06/06/25, 20:23 COLST Date Scanned Code Status Resuscitation Status Full Code Portal Pt does not currently have a portal and education provided: Yes Insurance Coverage/Financial Issues Insurance: Medicare Part A & B - [id number] Medicaid of [place] - [id number] Care Team Visit Care Team Role Provider Type Arina Interiano NP NURSE PRACTITIONER Darcie Willis Primary Care Provider NON-[facility] STAFF PHYSICIAN Cheri Arthur MD Other Providers NON-[place] STAFF PHYSICIAN MERRITT Grant Other Providers PHYSICIANS ASSISTANT Elvira M[facility] Other Providers [facility] STAFF PHYSICIAN Elvira Mendez [facility] Other Providers NON-[facility] STAFF PHYSICIAN Thomas Patino MD Other Providers [facility] STAFF PHYSICIAN Leandro Cadet MD Other Providers [facility] STAFF PHYSICIAN Orin Bennett MD Other Providers [facility] STAFF PHYSICIAN Carlos Silva DO Other Providers OSTEOPATHIC DOCTOR Tor Dahl MD Other Providers [facility] STAFF PHYSICIAN Kelly Dorsey MD Other Providers [facility] STAFF PHYSICIAN Florencia Barba MD Other Providers [facility] STAFF PHYSICIAN Hilaria Guerrero MD Emergency Provider [facility] STAFF PHYSICIAN Sarwat Carreon Admit Provider [facility] STAFF PHYSICIAN Attending Provider Discharge Potential Discharge Needs: PCP F/U Appt Anticipated Barriers to Discharge: None Identified Patient/Family Education Needs: Review discharge instructions, discuss Ask Me Three Transportation: Private vehicle Plan: Ervin is planning to discharge home once medically ready for discharge. He will transport via private vehicle with his son vs. [facility]. No services are anticipated at this time, unless home health RN is indicated for wound care. Patient will follow up with community providers and continue per his discharge plan of care. CM will continue to follow. Social Determinants of Health Screening Social Determinants of health last assessed in clinic: 06/07/25 Will the Patient Participate in the Screening?: Yes Do you worry about having a steady place to live?: no Problems where you live: no known problems In the past 12 months, have you had to go without electric, gas, oil or water in your home?: no 1. Within the past 12 months, we worried whether our food would run out before we got money to buy more.: Never true 2. Within the past 12 months, the food we bought just didn't last and we didn't have money to get more.: Never true Has lack of transportation kept you from medical appointments or from doing things needed for daily living?: no Has anyone in your life made you feel unsafe or unsupported?: no How hard is it for you to pay for the very basics like food, housing, medical care, and heating? Would you say it is:: Not hard at all Do you want help finding or keeping work or a job?: I do not need or want help If for any reason you need help with day-to-day activities such as bathing, preparing meals, shopping, managing finances, etc., do you get the help you need?: I don?t need any help How often do you feel lonely or isolated from those around you?: Never Do you speak a language other than Ecuadorean at home?: No Does the patient want assistance with any of the above?: No PFSH All Active Problems (Updated 06/07/25 @ 01:30 by Sarwat Carreon) Burn of finger and thumb of left hand, third degree (Acute) Sepsis (Acute) Discharge planning issues (Acute) DVT prophylaxis (Acute) Renal insufficiency (Chronic) Hypertension (Chronic) Diabetes mellitus (Chronic) Leukocytosis (Acute) Abscess of face (Acute) Bilateral lower extremity edema (Acute) Bilateral leg edema (Acute) Ankylosing spondylitis (Acute) Leukocytosis (Acute) H/O splenectomy (Acute) Hypertension (Chronic) H/O immunosuppressive therapy (Acute) GERD (gastroesophageal reflux disease) (Chronic) Hyperlipidemia (Acute) CAP (community acquired pneumonia) (Acute) Diabetes type 2, uncontrolled (Acute) Medical History (Updated 06/07/25 @ 01:30 by Sarwat Carreon) ADHD Neuropathy Cough Surgical History (Updated 06/07/25 @ 01:22 by Sarwat Carreon) History of surgery on upper extremity History of ankle surgery left, trauma S/P splenectomy Family History Mother , at age 46 Diabetes Heart disease Father , Age 73 Heart disease Stroke Social History (Updated 06/07/25 @ 01:24 by Sarwat Carreon) Smoking/Tobacco Use Status: Never Smoking risk assessment performed?: Yes Alcohol Intake: current Alcohol Intake frequency: a few times a week Alcohol type: beer Drug use: Occasionally Substance use type: marijuana Housing: other Do you feel safe at home: Yes Do you feel safe in your relationship?: Yes Additional Social history: lives alone in [place], family is close. On SSDI with left arm neuropathy
[2025-06-07] MEDS: Insulin Glargine 300 UNITS/3 ML PEN 25 UNITS SC ×2 (08:53→21:16)
[2025-06-07] MEDS: Losartan 50 MG TAB 100 MG PO (08:54)
[2025-06-07] MEDS: Spironolactone 25 MG TAB PO (08:54)
[2025-06-07] MEDS: amLODIPine 10 MG TAB PO (08:54)
[2025-06-07] MEDS: Normal Saline Flush 10 ML SYR IVP ×3 (08:55→12:11)
[2025-06-07] MEDS: Enoxaparin 40 MG/0.4 ML SYR SC (09:10)
--- NOTE | 2025-06-07 10:32 | SCONE_ITS ---
Date of service: 06/07/25 Time of Service: 10:32 Assessment and Plan Assessment and plan (1) Abscess of face: Status: Acute Assessment and plan: 59-year-old man with a superficial abscess on his left scalp. It is within the hairline. Hard to say what the etiology is but he probably scratched this area and then some hair follicles became infected and it would seem he is somewhat immunocompromised Pretty simple situation overall. I recommended incision and drainage he is in agreement with this plan. There is certainly risk of that recurring and coming back. He will need to do some local wound care with it after drainage. History of Present Illness Narrative: 59-year-old man has significant medical problems chronically. He denies trauma to his left forehead/anabaptism area but has what he describes as itchy spots over both years. He thinks he scratched them a bunch and now they feel infected. The left side hurts while the right side remains itchy. This has been going on for over a week. He is not sure if anything has been draining from the left side. There is some scabbing there but he denies any drainage. PFSH All Active Problems (Updated 06/07/25 @ 01:30 by Sarwat Carreon) Burn of finger and thumb of left hand, third degree (Acute) Sepsis (Acute) Discharge planning issues (Acute) DVT prophylaxis (Acute) Renal insufficiency (Chronic) Hypertension (Chronic) Diabetes mellitus (Chronic) Leukocytosis (Acute) Abscess of face (Acute) Bilateral lower extremity edema (Acute) Bilateral leg edema (Acute) Ankylosing spondylitis (Acute) Leukocytosis (Acute) H/O splenectomy (Acute) Hypertension (Chronic) H/O immunosuppressive therapy (Acute) GERD (gastroesophageal reflux disease) (Chronic) Hyperlipidemia (Acute) CAP (community acquired pneumonia) (Acute) Diabetes type 2, uncontrolled (Acute) Medical History (Updated 06/07/25 @ 01:30 by Sarwat Carreon) ADHD Neuropathy Cough Surgical History (Updated 06/07/25 @ 01:22 by Sarwat Carreon) History of surgery on upper extremity History of ankle surgery left, trauma S/P splenectomy Family History Mother , at age 46 Diabetes Heart disease Father , Age 73 Heart disease Stroke Social History (Updated 06/07/25 @ 01:24 by Sarwat Carreon) Smoking/Tobacco Use Status: Never Smoking risk assessment performed?: Yes Alcohol Intake: current Alcohol Intake frequency: a few times a week Alcohol type: beer Drug use: Occasionally Substance use type: marijuana Housing: other Do you feel safe at home: Yes Do you feel safe in your relationship?: Yes Additional Social history: lives alone in [place], family is close. On SSDI with left arm neuropathy Exam Narrative Exam Narrative: Gen: Non-toxic, comfortable and interactive Neuro: Alert and oriented x3 Psych: Good mood and affect. Good insight and understanding into condition. Head: No visible trauma. There is a tender area in front of his left ear. It is somewhat swollen consistent with the abscess cavity seen on CT scan. There is a scab overlying it but no actual pus is being expressed. Chest: Non-labored breathing, no wheezing, no visible shortness of breath. Heart: Regular Results Last Vital Signs Temp 97.9 F 06/07/25 07:06 Pulse 82 06/07/25 07:06 Resp 18 06/07/25 07:06 BP 150/80 H 06/07/25 07:06 Pulse Ox 96 06/07/25 07:06 Labs 06/07/25 06:28 06/07/25 06:28 Labs: Laboratory Results - last 24 hr 06/06/25 06/06/25 06/07/25 20:59 23:10 00:00 WBC 16.67 H RBC 4.28 L Hgb 13.0 L Hct 38.4 L MCV 90 MCH 30.4 MCHC 33.9 RDW 12.6 Plt Count 405 H MPV 9.1 Immature Gran % 0.4 Neutrophils % 66.6 Lymphocytes % 23.9 Monocytes % 7.9 Eosinophils % 0.9 Basophils % 0.3 Nucleated RBC % 0.0 Absolute Neutrophils 11.10 H Absolute Lymphocytes 3.98 H Absolute Monocytes 1.32 H Absolute Eosinophils 0.15 Absolute Basophils 0.05 VBG pH 7.42 H VBG pCO2 43 VBG pO2 41 VBG HCO3 28 VBG Total CO2 25 VBG O2 Saturation 81 VBG Base Excess 3 VBG Lactate 1.7 Sodium 134 L Potassium 4.0 Chloride 98 Carbon Dioxide 27.4 Anion Gap 8.6 BUN 23 H Creatinine 1.4 H Est GFR (CKD-EPI 2020) 58.62 Glucose 276 H Hemoglobin A1c 7.4 H Calcium 8.3 L Total Bilirubin 0.1 L AST 19 ALT 22 Alkaline Phosphatase 122 H Total Protein 7.0 Albumin 2.6 L Urine Color Yellow Urine Clarity Clear Urine pH 6.0 Ur Specific [place] 1.010 Urine Protein 100 H Urine Ketones Negative Urine Blood Trace-intact H Urine Nitrite Negative Urine Bilirubin Negative Urine Urobilinogen 0.2 Ur Leukocyte Esterase Negative Urine RBC 0-2 Urine WBC Negative Ur Epithelial Cells Rare Urine Crystals Negative Urine Bacteria Rare Urine Casts Negative Urine Mucus Negative Ur Culture Indicated? No Urine Glucose Negative Urine Opiates Screen Negative Urine Methadone Screen Negative Ur Barbiturates Screen Negative Ur Tricyclics Screen Negative Ur Amphetamines Screen Negative U Benzodiazepines Scrn Negative Urine Cocaine Screen Positive A Ur THC Screen Positive A COVID-19 Source Nasopharynx SARS-CoV-2 (PCR) Negative Influenza Type A (PCR) Negative Influenza Type B (PCR) Negative RSV (PCR) Negative 06/07/25 06:28 WBC 13.37 H RBC 4.23 L Hgb 13.1 L Hct 38.6 L MCV 91 MCH 31.0 MCHC 33.9 RDW 12.7 Plt Count 409 H MPV 9.2 Immature Gran % Neutrophils % Lymphocytes % Monocytes % Eosinophils % Basophils % Nucleated RBC % Absolute Neutrophils Absolute Lymphocytes Absolute Monocytes Absolute Eosinophils Absolute Basophils VBG pH VBG pCO2 VBG pO2 VBG HCO3 VBG Total CO2 VBG O2 Saturation VBG Base Excess VBG Lactate Sodium 139 Potassium 3.9 Chloride 105 Carbon Dioxide 27.2 Anion Gap 6.8 BUN 19 H Creatinine 1.2 Est GFR (CKD-EPI 2020) 70.53 Glucose 63 L Hemoglobin A1c Calcium 8.4 L Total Bilirubin AST ALT Alkaline Phosphatase Total Protein Albumin Urine Color Urine Clarity Urine pH Ur Specific [place] Urine Protein Urine Ketones Urine Blood Urine Nitrite Urine Bilirubin Urine Urobilinogen Ur Leukocyte Esterase Urine RBC Urine WBC Ur Epithelial Cells Urine Crystals Urine Bacteria Urine Casts Urine Mucus Ur Culture Indicated? Urine Glucose Urine Opiates Screen Urine Methadone Screen Ur Barbiturates Screen Ur Tricyclics Screen Ur Amphetamines Screen U Benzodiazepines Scrn Urine Cocaine Screen Ur THC Screen COVID-19 Source SARS-CoV-2 (PCR) Influenza Type A (PCR) Influenza Type B (PCR) RSV (PCR)
--- NOTE | 2025-06-07 10:56 | PHACLINREV_ITS ---
Pharmacy Admission Review Admission Clinical Review Admission Pharmacy Review: Burn of finger and thumb of left hand, third degree (Acute) Sepsis (Acute) Discharge planning issues (Acute) DVT prophylaxis (Acute) Abscess of face (Acute) Ankylosing spondylitis (Acute) No Known Allergies Allergy (Unverified 01/16/24 13:59) Resuscitation Status Full Code Height 5 ft 2 in Weight 96.7 kg Pharmacy Admission Review Renal Dosing Renal Dosing: BUN 19 mg/dL (7-18) H 06/07/25 06:28 Creatinine 1.2 mg/dL (0.70-1.30) 06/07/25 06:28 Medications needing adjustments: Reviewed (CrCl 68.6 mL/min, BUN decreased from 23 and SCr decreased from 1.4) List of meds needing interventions: Current medications are okay Anticoagulation Anticoagulation: Hgb 13.1 g/dL (13.5-17.5) L 06/07/25 06:28 Hct 38.6 % (40.0-50.0) L 06/07/25 06:28 Plt Count 409 10^3/uL (130-400) H 06/07/25 06:28 Creatinine 1.2 mg/dL (0.70-1.30) 06/07/25 06:28 DVT Prophylaxis: Reviewed Medications: Enoxaparin (40mg daily) Opiate Usage Evaluate Pain Scale/Pains Meds: Reviewed (oxycodone 5mg q4h PRN - 5mg/24hrs) Scheduled Bowel Reg ordered if on Opiates?: No (PRN Miralax) Relevant Labs Relevant Labs: Sodium 139 mmol/L (136-145) 06/07/25 06:28 Potassium 3.9 mmol/L (3.5-5.1) 06/07/25 06:28 Chloride 105 mmol/L (98-107) 06/07/25 06:28 Electrolytes, C-Reactive P, ESR: Reviewed DM Control DM Control: Glucose 63 mg/dL (74-106) L 06/07/25 06:28 Hemoglobin A1c 7.4 % (<5.7) H 06/06/25 20:59 Finger Stick Blood Glucose 66 0856 Finger Stick Blood Glucose 66 0853 Finger Stick Blood Glucose 66 0528 Finger Stick Blood Glucose 153 0511 Finger Stick Blood Glucose 153 0511 Finger Stick Blood Glucose 66 0450 Finger Stick Blood Glucose 66 0450 DM Control: Reviewed Insulin Dosing, Diabetic Medication: has order for SS insulin and glargine 25 units BID Cardiac Review Cardiac Review: Blood Pressure 150/80 0706 Blood Pressure 167/86 0135 Blood Pressure 167/86 0125 BP, HR, EF%: Reviewed (HR WNL) List meds needing interventions: Has orders for amlodipine 10mg daily, spironola ctone 25mg daily and losartan 100mg daily QTc Review QTc: Reviewed (421 from 02/07/21 - most recent EKG on file) IV to PO Switch IV Medications: Reviewed (vancomycin and ketorolac) Home Meds Home Med List reviewed: Intervened Relevent Home Meds Not ordered & why?: metformin (on hold per H+P), atorvastatin, calcipotriene solution, clindamycin lotion, Adderall XR (on hold per H+P), furosemide, Simponi (monthly), naproxen (PRN), nortriptyline, nystatin powder (PRN), ondansetron (PRN), Ozempic (weekly), sildenafil (PRN) and triamcinolone cream Asked provider about atorvastatin, furosemide and nortriptyline - waiting to hear back. Current Meds Current Medication Order Review: Intervened Comments: Added IV access order Pharmacy Antibiotic Review Relevant Labs: WBC 13.37 10^3/uL (4.4-10.8) H 06/07/25 06:28 Temperature 36.4 C Temperature 36.6 C Temperature 37.1 C Temperature 37.1 C Pharmacy Antibiotic Activity: C/S review and Reviewed, no change Comments: Patient is on vancomycin, day 1, for facial cellulitis. Current dose is 1500mg with predicted trough of 11.3. Level ordered by overnight pharmacy for 06/09 @ 2100 (prior to 4th dose). Will adjust dose as needed based on results. WBC decreased from 16.67 and blood cultures pending.
[2025-06-07] MEDS: Pravastatin 40 MG TAB PO (19:52)
[2025-06-07] MEDS: Atorvastatin 40 MG TAB 80 MG PO (19:52)
[2025-06-07] MEDS: VANCOMYCIN/WATER (PEG) 1.5 GM/300 ML BAG IVPB (22:39)
[2025-06-08] MEDS: oxyCODONE 5 MG TAB PO ×4 (00:09→12:14)
[2025-06-08 06:15] LABS: Abs Immature Grans 0.04 10^3/uL (0.0-0.06); HCT 40.1 % (40.0-50.0); HGB 13.4 g/dL (13.5-17.5); MCH 30.7 pg (27.0-33.0); MCHC 33.4 % (32.0-36.0); MCV 92 fL (80-95); MPV 9.2 fL (8.0-11.0); Platelet Count 430 10^3/uL (130-400); RBC 4.36 10^6/uL (4.36-5.78); RDW 12.6 % (11.8-14.1); RDW-SD 42.4 fL; WBC 12.18 10^3/uL (4.4-10.8)
[2025-06-08 06:30] LABS: Anion Gap 7.4 mmol/L (3-11); BUN 17 mg/dL (7-18); CO2 28.6 mmol/L (21.0-32.0); Calcium 8.8 mg/dL (8.5-10.1); Chloride 105 mmol/L (98-107); Estimated GFR 78.30 (mL/min/1.73m2); Potassium 3.8 mmol/L (3.5-5.1); Sodium 141 mmol/L (136-145)
[2025-06-08 06:36] LABS: Glucose 44 mg/dL (74-106)
[2025-06-08] MEDS: Dextrose 50%-Water 25 GM/50 ML SYR IVP (06:41)
[2025-06-08 07:21] VITALS: BP 130/76; PULSE 64; RESP 16; TEMP 36.3; O2SAT 93
[2025-06-08 07:27] LABS: Immature Grans % 0.0 %; RBC Morphology Normal
[2025-06-08] MEDS: Lactated Ringers 1,000 ML 80 ML IV (07:53)
[2025-06-08] MEDS: Enoxaparin 40 MG/0.4 ML SYR SC (08:00)
[2025-06-08] MEDS: Insulin Glargine 300 UNITS/3 ML PEN 25 UNITS SC (08:00)
[2025-06-08] MEDS: Insulin Aspart 300 UNITS/3 ML PEN SC (08:01)
[2025-06-08] MEDS: Acetaminophen 325 MG TAB 650 MG PO ×2 (08:02→16:05)
[2025-06-08] MEDS: Spironolactone 25 MG TAB PO (08:03)
[2025-06-08] MEDS: Losartan 50 MG TAB 100 MG PO (08:03)
[2025-06-08] MEDS: amLODIPine 10 MG TAB PO (08:03)
--- NOTE | 2025-06-08 08:16 | ROE_ITS ---
Operative Note Operative Note Refer to Anesthesia Record Procedure Description: Procedures performed: 1. 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 FINDINGS: Abscess cavity was opened, cultured and then completely drained. Packing placed into the cavity. Specimens: 1. Cultures were taken Complications: None Blood loss: Scant Urine output: Not measured Implants/drains: 1-inch packing left in place PROCEDURE IN DETAIL: Patient gave written consent. He was in agreement with the indications, the likely benefits as well as the potential risks of surgical intervention. A brief timeout was performed and when we were in agreement I started the procedure. The skin was prepped in a sterile fashion. Local anesthetic was injected in the skin and the soft tissue surrounding the area of induration. A surgical blade was used, within the scalp hairline, to make an incision directly into the abscess cavity. Thick pus, under pressure, was expelled through the incision. Cultures were taken. I bluntly broke up loculations within the cavity. The wound cavity was irrigated. Packing was placed within the cavity. Hemostasis was excellent. The patient tolerated the procedure well. The sponge, instruments and sharps counts were correct x3 at the end of the procedure. Date of Procedure: 06/07/25
--- NOTE | 2025-06-08 08:26 | PDOC.CMPRO ---
Date of service: 06/08/25 Time of Service: 08:26 Social Determinants of Health Screening Social Determinants of health last assessed in clinic: 06/07/25 Will the Patient Participate in the Screening?: Yes Do you worry about having a steady place to live?: no Problems where you live: no known problems In the past 12 months, have you had to go without electric, gas, oil or water in your home?: no Has lack of transportation kept you from medical appointments or from doing things needed for daily living?: no Has anyone in your life made you feel unsafe or unsupported?: no How hard is it for you to pay for the very basics like food, housing, medical care, and heating? Would you say it is:: Not hard at all Do you want help finding or keeping work or a job?: I do not need or want help If for any reason you need help with day-to-day activities such as bathing, preparing meals, shopping, managing finances, etc., do you get the help you need?: I don?t need any help How often do you feel lonely or isolated from those around you?: Never Do you speak a language other than Uzbek at home?: No Does the patient want assistance with any of the above?: No
--- NOTE | 2025-06-08 09:36 | PGE_ITS ---
Date of Service Date of service: 06/08/25 Time of Service: 09:36 Assessment and Plan Assessment and plan (1) Abscess of face: Start date: 06/08/25 Status: Acute Assessment and plan: High risk infection in patient with splenectomy, immune suppression, and possibly poor outpatient follow up (or recent estrangement) I agree with MRSA coverage with vancomycin with abscess.2.2 centimeter abscess in the subcutaneous fat in the pre-auricular region. Transition to oral on discharge Surgical consult: OR 06/07 for I&D, Wound care:Remove packing, replace with 1/4 inch packing ONE TIME ONLY. To be removed on 06/09 and not packed after that- Home health on d/c? NPO for now just in case though may be bedside procedure (2) Sepsis: Start time: 09:40 Status: Acute Assessment and plan: Meets criteria with elevated pulse and WBC with acute infection. Give a liter of fluid now, blood cultures neagtive at 24 H See above (3) Hypertension: Status: Chronic Assessment and plan: Continue outpatient therapy, need to confirm with good medication reconcilia tion. (4) Diabetes mellitus: Status: Chronic Assessment and plan: A1c 7.4% represents reasonable though not ideal control on mefformin, GLP-[address] with contrast Clarify insulin use at home. ISS for now. (5) Ankylosing spondylitis: Status: Acute Assessment and plan: Was on immune modulation, confirm current therapy Was getting daily opioid therapy with oxycodone, VPMS suggests he was tapered, with last script in early April for only 1 week. This is likely complicating his pain management. (6) Renal insufficiency: Status: Chronic Assessment and plan: Unclear if this is near baseline or mild REJI. He is getting NSAIDs. Follow, IV fluids while NPO (7) Burn of finger and thumb of left hand, third degree: Status: Acute Assessment and plan: unrelated to presentation. related to neuropathy. Does not look infected. wound care. (8) ADHD: Assessment and plan: Previously on stimulant therapy, PCP stopped regular prescriptions in March 2025. Will hold this for now, clarify history. (9) DVT prophylaxis: Status: Acute Assessment and plan: enoxparin (10) Discharge planning issues: Status: Acute Assessment and plan: likely 48 hour admission for IV antibiotics until cellulitis clearly improving Exam Narrative Exam Narrative: General Appearance: Normal. Patient alert and oriented, no acute distress Vital signs: Within normal limits. HEENT: Crusted lesion approx 3 cm diameter noted on left temporal, tender to palpation. No obvious erythema or drainage. Mildy erythematous R upper and lower eyelids, no subconjunctival erythema. Respiratory: Easy work of breathing, lung sounds clear bilaterally Cardiovascular: normal heart sounds, regular rate and rhythm Gastrointestinal: Abdomen soft, nondistended, nontender to palpation. Skin: Warm and dry. Crusted dry lesions noted to distal L middle finger and R palm. +erythema to L distal finger. Psychiatric: Normal. Objective Last Vital Signs Temp 36.3 C L 06/08/25 07:21 Pulse 64 06/08/25 07:21 Resp 16 06/08/25 07:21 BP 130/76 06/08/25 07:21 Pulse Ox 93 06/08/25 07:21 Laboratory Results - last 24 hr 06/08/25 05:55 WBC 12.18 H RBC 4.36 Hgb 13.4 L Hct 40.1 MCV 92 MCH 30.7 MCHC 33.4 RDW 12.6 Plt Count 430 H MPV 9.2 Immature Gran % 0.0 Neutrophils % 52.0 Band Neutrophils % 1 Lymphocytes % 36.0 Atypical Lymphs % 3 Monocytes % 7.0 Eosinophils % 1.0 Basophils % 0.0 Nucleated RBC % 0.0 Absolute Neutrophils 6.46 Absolute Lymphocytes 4.75 H Absolute Monocytes 0.85 H Absolute Eosinophils 0.12 Absolute Basophils 0.00 RBC Morphology Normal Sodium 141 Potassium 3.8 Chloride 105 Carbon Dioxide 28.6 Anion Gap 7.4 BUN 17 Creatinine 1.1 Est GFR (CKD-EPI 2020) 78.30 Glucose 44 L* Calcium 8.8
[2025-06-08 11:38] VITALS: BP 138/76; PULSE 71; RESP 16; TEMP 36.2; O2SAT 95
--- NOTE | 2025-06-08 11:42 | PDOC.CMDIS ---
Date of service: 06/08/25 Time of Service: 11:42 LACE Index Scoring Tool Questions: Length of Stay (in days): 1 Was the patient admitted via the E.D.?: Yes Comorbidities: Diabetes w/o Complication E.D. Visits: 2 Answers: Total Score: 7 Risk of Readmission: Low Risk Care Management Discharge Plan Reason for Hospitalization: Cellulites Discharge Plan: Ervin is discharged home with New O/E RN for support with wound care. He will transport via private vehicle with family. He will follow up with community providers and continue per his discharge plan of care as directed. Patient/Family Education Needs: Review discharge instructions and plan to follow up after discharge. Discuss ask me three. Services Needed at Discharge: Home Health Care Services ([facility]E [facility] RN for wound care, CM notified [facility] at [facility])
[2025-06-08] MEDS: Ketorolac 15 MG/ML VIAL IVP (12:06)
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
--- NOTE | 2025-06-08 12:54 | PDOC.HHF2F_ITS ---
Date of service: 06/08/25 Time of Service: 12:54 Home Health Referral Home Health Orders Clinical synopsis of why skilled professionals are needed: This 59 years old male patient with a past medical history of type 2 DM, splenectomy, renal insufficiency, , ankylosing spondylitis on immune modulating therapy, chronic pain formerly on chronic opioid therapy who presented with 4-5 days of progressive pain and swelling in the left mormon area. The patient was tachycardic HR 96, afebrile and normo- tensive. Blood work showed leukocytosis, dehydration with Cr 1.4 and BUN 23. The patient was found to have left pre- auricular subcutaneous fat measuring 2.2 x 1.2 x 2.2 cm. abscess and was admitted for IV antibiotics and surgical evaluation for I&D in the setting of sepsis. The patient received IV vancomycin and left temporal abscess was drained on 06/07. Blood cultures were negative and wound grew MRSA - no previous histopry reported but home medicines included topical clindamycin and mupirocin. The patient has been afebrile and hemodynamically stable for 24 hours and will discharged home with home health nursing for wound care and monitoring. Follow - up with PCP within 7 days of discharge, immuno-modulator drug (Simponi) on hold until discussion with PCP. Wound care:Clean with sterile saline, remove packing, replace with 1/4 inch packing ONE TIME ONLY. To be removed on 06/09 and not packed after that After 06/09 cover with Bactroban/mupirocin thin layer and dry gauze. Discussed with Dr. Fan Registered Nurse: Check all that apply Instruct on new or changed medication(s)/assess compliance: Ordered Assess for exacerbation of medical condition, instruct patient/caregivers on signs and symptoms to report for early detection: Ordered Assess wound for signs and symptoms of infection, instruct on wound care and/or provide skilled wound care consisting of: Wound to left temporal incision site: Wound care:Clean with sterile saline, remove packing, replace with 1/4 inch packing ONE TIME ONLY. To be removed on 06/09 and not packed after that After 06/09 cover with Bactroban thin layer and dry gauze. Encounter Date and Reason: I certify that a FTF encounter for this patient was performed on June 08, 2025 and that such encounter was related to the primary reason the patient requires home health services. The encounter was conducted in the following manner: * By me as the certifying physician, FOOD ORDER DELIVERY RUNNER, PA or * By an inpatient physician, FOOD ORDER DELIVERY RUNNER or PA during an inpatient stay who communicated findings to me, Certification And Authentication I certify that I composed the above information based on my clinical judgment relating to this patient's medical condition and, if applicable, clinical findings communicated to me by the NPP or inpatient physician who performed the FTF encounter. Name of Provider that will be monitoring home health services: Darcie Willis
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
[2025-06-08] MEDS: traMADol 50 MG TAB 25 MG PO (16:05)
== END 2025-06-08 18:29 | disposition home health service (06) ==
LOC: ER 06-07 01:00 → MS 06-07 01:34
PROVIDERS: Nurse Practitioner Acute Care; Nurse Practitioner Family; Admitting Provider Family Medicine; Emergency Provider Student in an Organized Health Care Education/Training Program; PCP Nurse Practitioner Family; Responsible Provider Nurse Practitioner Acute Care; Visit Provider Family Medicine
DX: A41.9 Sepsis, unspecified organism (principal); L02.01 Cutaneous abscess of face; M45.9 Ankylosing spondylitis of unspecified sites in spine; B95.62 Methicillin resistant Staphylococcus aureus infection as the cause of diseases classified elsewhere; F90.9 Attention-deficit hyperactivity disorder, unspecified type; Z79.899 Other long term (current) drug therapy; Z90.81 Acquired absence of spleen; D84.821 Immunodeficiency due to drugs; Z79.620 Long term (current) use of immunosuppressive biologic; E11.22 Type 2 diabetes mellitus with diabetic chronic kidney disease; N18.9 Chronic kidney disease, unspecified; I12.9 Hypertensive chronic kidney disease with stage 1 through stage 4 chronic kidney disease, or unspecified chronic kidney disease; E78.5 Hyperlipidemia, unspecified; K21.9 Gastro-esophageal reflux disease without esophagitis; R60.0 Localized edema; Z79.4 Long term (current) use of insulin; E86.0 Dehydration
CPT/HCPCS: 10060; 00123; 36415; 36416; 80048; 80053; 80307; 82805; 82962; 85027; 87040; 87077; 87637; 96365; 96366; 96375; 99222; 99285; J1650; 70487; 73130; 81003; 81015; 83036; 83605; 85025; 87070; 87186; 87205; 99239; G0378; J1815; J1885; J3373; J3490